=== PATIENT | male | born 1945 | race Caucasian/White ===

== ENCOUNTER 2019-09-23 21:03 | Inpatient (IN) | payer MEDICARE, MEDICAID, SELFPAY ==
--- NOTE | 2019-09-23 21:09 | DI.CT.S_ITS ---
PROCEDURE: CT HEAD/BRAIN WO CON INDICATIONS: found down, head laceration, obtunded TECHNIQUE: Noncontrast 4.5 mm thick angled axial sections acquired from the foramen magnum to the vertex, with coronal and sagittal reformats. For radiation dose reduction, the following was used: automated exposure control, adjustment of mA and/or kV according to patient size. COMPARISON: [facility], CT, CT HEAD WITHOUT CONTRAST, 07/30/2019, 18:47. FINDINGS: Image quality: Excellent. CSF spaces: Basal cisterns are patent. No extra-axial fluid collections. The ventricles are symmetric in size and shape. Brain: No intracranial bleeds or masses. 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 There is cerebral volume loss for age, with resultant ventricular and sulcal prominence. There are periventricular and deep white matter chronic small vessel ischemic changes. There is intracranial internal carotid artery atherosclerosis. Skull and face: Calvarium and visualized facial bones appear intact, without suspicious lesions. Sinuses: Visualized sinuses and mastoids are clear. IMPRESSION: No CT evidence of acute intracranial pathology. No acute skull fracture. No significant changes from previous study. Dictated by: Jamel Genao M.D. on 09/23/2019 at 21:45 Approved by: Jamel Genao M.D. on 09/23/2019 at 21:47
--- NOTE | 2019-09-23 21:09 | DI.CT.S_ITS ---
PROCEDURE: CT CERVICAL SPINE WO CON INDICATIONS: possible fall, trauma TECHNIQUE: Noncontrast 3 mm thick sections acquired from the skull base to the T4 level. Sagittal and coronal reformats were then constructed. For radiation dose reduction, the following was used: automated exposure control, adjustment of mA and/or kV according to patient size. COMPARISON: None. FINDINGS: Image quality: Excellent. Bones: No fractures or dislocations. Visualized superior ribs are intact. Decrease intervertebral disc space and degenerative endplate changes throughout cervical spine is seen. No significant central canal stenosis or neuroforaminal narrowing is noted. Soft tissues: Prevertebral soft tissues are normal in thickness. No paravertebral hematomas. No apical pneumothoraces. IMPRESSION: 1. No acute cervical spine fracture or dislocation. 2. Degenerative disc disease throughout cervical spine as above. Dictated by: Jamel Genao M.D. on 09/23/2019 at 21:47 Approved by: Jamel Genao M.D. on 09/23/2019 at 21:49
--- NOTE | 2019-09-23 21:09 | DI.CT.S_ITS ---
PROCEDURE: CT CHEST ABD PEL W CON INDICATIONS: possible trauma TECHNIQUE: After the administration of intravenous contrast, 5 mm thick sections acquired from the lung apices to the symphysis. 2.5 mm thick coronal and sagittal reformats were acquired. Additional 7 mm thick coronal maximum intensity projection (MIP) reformats acquired through the lungs. Optional 10-minute delayed imaging may be performed from the kidneys to the bladder. For radiation dose reduction, the following was used: automated exposure control, adjustment of mA and/or kV according to patient size. COMPARISON: None. FINDINGS: Image quality: Excellent. CHEST: Lungs: No pulmonary contusions or lacerations. Severe centrilobular emphysema is seen. Biapical scarring is noted. Dependent atelectasis and scarring in posterior aspect of bilateral lung baum are seen. No acute airspace opacities. No pneumothorax or hemothorax. Central and peripheral airways appear patent and normal in caliber. Mediastinum: No mediastinal hematomas. Heart size is normal. No pericardial effusion. Thoracic aorta and pulmonary arteries demonstrate normal size and enhancement. No mediastinal or hilar adenopathy by size criteria are. Small lymph nodes are seen scattered in mediastinum measures up to 6 mm in size. Esophagus is normal in caliber. No hiatal hernia. Chest wall: No rib fractures. No subcutaneous emphysema. No axillary or supraclavicular adenopathy. Thyroid gland is within normal limits. ABDOMEN: Solid organs: Liver is normal in size and enhancement, without lacerations. Small hypodensities are seen scattered in right hepatic lobe measures up to 5 mm in size and may represent hepatic cysts. Gallbladder is within normal limits. Biliary system is non-dilated. Pancreas enhances normally, without transection. Spleen is normal in size and enhancement, without lacerations. No adrenal hematomas. Nodular appearance of left adrenal gland is seen which may represent an adrenal adenoma. Both kidneys enhance normally, without hydronephrosis or lacerations. 2.8 x 3 cm cystic structure with calcified rim is noted in lateral cortex of the lower pole left kidney with a internal fluid levels which may represent chronic hemorrhagic cyst. Peritoneum and bowel: No free fluid or air. Unenhanced bowel loops demonstrate normal wall thickness and caliber. Sigmoid diverticulosis is seen, no CT evidence of acute diverticulitis. Mild fecal stasis in the colon is seen extending to the rectum. Nodes and vessels: No retroperitoneal or mesenteric adenopathy. Aorta and inferior vena cava are normal in size and enhancement. Miscellaneous: No ventral hernias. PELVIS: Genitourinary: Bladder wall thickness is normal. Miscellaneous: No inguinal hernias or adenopathy. Bones: There is an acute fracture involving proximal right femoral neck with anterior and superior migration of femoral shaft in relation to the femoral head. No other fracture or dislocation is seen. No vertebral compression fractures. IMPRESSION: 1. Acute displaced right femoral neck fracture as above. No other fracture or dislocation is seen. No compression fracture is noted in the thoracic or lumbar spine. 2. Advanced centrilobular emphysema with upper lobe predominance. No pleural effusion or pneumothorax. No gross pulmonary contusion or laceration. 3. No gross acute solid organ injury in abdomen and pelvis. 2.8 x 3 cm peripherally calcified cystic structure in lower pole left kidney with internal fluid level which could represent a chronic hemorrhagic cyst. Ultrasound of kidney can be done for further evaluation of this area. No hydronephrosis. 4. No abnormal bowel wall thickening. No free fluid of free air. Mild constipation. Dictated by: Jamel Genao M.D. on 09/23/2019 at 21:50 Approved by: Jamel Genao M.D. on 09/23/2019 at 22:01
[2019-09-23 21:14] VITALS: BP 187/104; PULSE 93; RESP 20; O2SAT 91; BMI 25.4
[2019-09-23 21:22] LABS: Add Manual Diff / Slide Review NO; Basophils Absolute Auto 100 /uL (0-100); Basophils Percent Auto 1.1 % (0-2); Eosinophils Absolute Auto 700 /uL (0-450); Eosinophils Percent Auto 9.3 % (2-4); Hematocrit 44.7 % (41-53); Lymphocytes Absolute Auto 1800 /uL (1100-4500); Lymphocytes Percent Auto 25.4 % (25-40); Mean Corpuscular HGB Conc 33.5 % (30-36); Mean Corpuscular Hemoglobin 31.1 PG (26-34); Mean Corpuscular Volume 92.6 fL (80-100); Monocytes Absolute Auto 700 /uL (0-900); Neutrophils Absolute Auto 3800 /uL (1500-7000); Neutrophils Percent Auto 54.2 % (50-75); Platelet Count 247 X10^3/uL (150-400); Red Blood Cell Count 4.83 X10^6/uL (4.5-5.9); Red Cell Distribution Width 14.9 % (11.6-14.8)
[2019-09-23 21:27] LABS: Prothrombin Time 11.3 SECONDS (10.1-12.7)
[2019-09-23 21:30] LABS: PTT Partial Thromboplastin Tim 30 SECONDS (26.4-36.2)
[2019-09-23 21:31] LABS: Lactate (Lactic Acid) 2.9 mmol/L (0.7-2.1)
--- NOTE | 2019-09-23 21:39 | ED.TRAUMA ---
HPI - Trauma General Chief Complaint: Trauma Stated Complaint: GLF Time Seen by Provider: 09/23/19 21:05 Source: patient, family and EMS Mode of arrival: EMS Limitations: altered mental status History of Present Illness HPI narrative: 74-year-old male daily smoker with out known medical history presents by EMS for evaluation of a fall with unknown down time. It is unclear how EMS was activated but patient was initially evaluated by and ALS unit who found patient, placed him in a C-collar, checked his blood sugar found to be low and treated him and then activated BLS for transfer. Patient is a poor historian and does not know how he ended up on the ground or how long he was there but apparently was found outside of his house. Patient's only complaint is of right shoulder and right hip pain. He denies any headache he denies loss of consciousness, any denies the use of alcohol or blood thinners, but as stated he is a very poor historian. Patient was activated as a modified trauma given his unclear etiology of confusion and suspected traumatic injury. Related Data Home Medications Medication Instructions Recorded Confirmed aspirin 81 mg PO DAILY 09/24/19 09/24/19 folic acid 1 mg PO DAILY 09/24/19 09/24/19 lamotrigine 150 mg PO BID 09/24/19 09/24/19 thiamine HCl (vitamin B1) 100 mg PO DAILY 09/24/19 09/24/19 Allergies Allergy/AdvReac Type Severity Reaction Status Date / Time No Known Drug Allergies Allergy Verified 09/24/19 00:19 Review of Systems Constitutional Constitutional: Denies chills, Denies fatigue, Denies fever(s), Reports frequent falls, Denies lethargy and Reports weakness Eyes Eyes: Denies change in vision, Denies eye discharge, Denies irritation and Denies loss of vision ENT Ears, Nose, Mouth, and Throat: Denies change in voice, Denies dizziness, Denies neck pain, Denies sore throat and Denies throat swelling Cardiovascular Cardiovascular: Denies chest pain, Denies irregular heart rhythm, Denies lightheadedness, Denies palpitations, Denies dyspnea, Denies dyspnea on exertion and Denies orthopnea Respiratory Respiratory: Denies cough, Denies dyspnea, Denies dyspnea on exertion and Denies wheezing Gastrointestinal Gastrointestinal: Denies abdominal pain, Denies change in bowel habits, Denies diarrhea, Denies nausea and Denies vomiting Genitourinary Genitourinary: Denies hematuria, Denies flank pain, Denies urinary incontinence and Denies urinary urgency Musculoskeletal Musculoskeletal: Denies back pain, Reports limited range of motion, Denies muscle weakness, Denies neck pain, Denies numbness and Denies tingling Integumentary/Breasts Skin/Breast: Denies pruritus, Denies erythema, Denies rash and Denies wounds Neurologic Neurologic: Denies behavioral changes, Denies confusion, Denies dizziness, Reports frequent falls, Denies loss of vision, Denies numbness, Denies tingling and Reports weakness Psychiatric Psychiatric: Denies anxiety, Denies behavioral changes, Denies confusion, Denies depression, Denies homicidal ideation and Denies suicidal ideation Endocrine Endocrine: Denies fatigue, Denies flushing and Denies palpitations Hematologic/Lymphatic Hematologic/Lymphatic: Denies easy bruising Allergic/Immunologic Allergic/Immunologic: Denies urticaria, Denies throat swelling and Denies wheezing Patient History Social History Smoking Status: Current every day smoker Exam Narrative Exam Narrative: GENERAL: [74] year old patient appears stated age. Thin, pleasantly confused, uncomfortable and pointing toward his hip. GCS of 14 (confused) HEAD: Atraumatic. Normocephalic. EYES: Pupils equal round and reactive. Extraocular motions intact. No scleral icterus. No injection or drainage. ENT: Nose without bleeding, purulent drainage. Throat without erythema, tonsillar hypertrophy or exudate. Airway patent. NECK: Trachea midline. Non tender CARDIOVASCULAR: Regular rate and rhythm without murmurs, gallops, or rubs. RESPIRATORY: Clear to auscultation. Breath sounds equal bilaterally. No wheezes, rales, or rhonchi. GASTROINTESTINAL: Abdomen soft, non-tender, nondistended. EXTREMITIES: Painful right shoulder, no tenting, closed and neurovascularly intact. Pain with palpation of right hip but no obvious deformity, shortening or rotation. Closed and neurovascularly intact. BACK: Nontender without deformity or crepitance. No flank tenderness. NEURO: AOx3. SKIN: No rash or erythema of visible areas Initial Vital Signs Initial Vital Signs: Vital Signs Pulse Rate 93 H 09/23/19 21:14 Respiratory Rate 09/23/19 21:14 Blood Pressure 187/104 H 09/23/19 21:14 Pulse Oximetry 91 09/23/19 21:14 Course Orders Ordered: ED Orders 09/23/19 21:09 CT cervical spine wo con Stat CT chest abd pel w con Stat CT head/brain wo con Stat EKG-12 Lead Stat 09/23/19 21:12 Complete Blood Count AUTO DIFF Stat Comprehensive Metabolic Panel Stat Ethanol (ETOH) Stat Lactate (Lactic Acid) Stat Magnesium Stat NT-proBNP (BNP-Adult 18+) Stat Partial Thromboplastin Time Stat Procalcitonin Stat Prothrombin Time INR Stat Troponin & CK Cardiac Panel Stat 09/23/19 22:21 Ictotest Urine Stat Urine Drug Screen, Rapid Stat Urine Microscopic Stat 09/23/19 22:27 XR hip w pel if done RT 2V Stat XR shoulder RT min 2V Stat 09/23/19 23:30 Blood Culture Stat Sodium Chloride (Normal Saline 0.9%) 1,000 mls @ 125 mls/hr IV CONT MARIA LUISA Last Admin: 09/23/19 21:45 Dose: 125 mls/hr Documented by: KRISTINA Discontinued Medications Diphtheria/Tetanus/Acell Pertussis (Adacel) 0.5 ml IM .ONCE ONE Stop: 09/23/19 21:09 Last Admin: 09/23/19 23:48 Dose: 0.5 ml Documented by: KRISTINA Hydromorphone HCl (Dilaudid) 0.5 mg IV NOW ONE Stop: 09/24/19 00:37 Last Admin: 09/24/19 00:39 Dose: 0.5 mg Documented by: KRISTINA Thiamine HCl (Vitamin B-1) 100 mg IV NOW ONE Stop: 09/23/19 23:48 Last Admin: 09/24/19 00:15 Dose: 100 mg Documented by: KRISTINA Consultations Consultation #1: call to ortho, happy to consult when appropriate call to hospitalist, happy to accept Vital Signs Vital signs: Vital Signs - 8 hr 09/23/19 21:14 09/23/19 21:49 09/23/19 22:00 Temperature 97.1 F L Pulse Rate 93 H 90 79 Respiratory Rate 20 24 24 Blood Pressure 187/104 H Blood Pressure [Left Arm] 169/86 H 169/92 H Pulse Oximetry 91 92 94 09/23/19 22:52 09/23/19 23:30 09/24/19 00:00 Temperature Pulse Rate 81 82 76 Respiratory Rate 22 20 20 Blood Pressure Blood Pressure [Left Arm] 171/91 H 170/81 H 169/84 H Pulse Oximetry 96 98 98 MDM - Trauma Lab Data Result diagrams: 09/23/19 21:12 09/23/19 21:12 Labs: Lab Results 09/23/19 09/23/19 09/23/19 Range/Units 21:12 21:12 21:12 WBC 7.0 (4.5-11.0) X10^3/uL RBC 4.83 (4.5-5.9) X10^6/uL Hgb 15.0 (13.5-17.5) g/dL Hct 44.7 (41-53) % MCV 92.6 (80-100) fL MCH 31.1 (26-34) PG MCHC 33.5 (30-36) % RDW 14.9 H (11.6-14.8) % Plt Count 247 (150-400) X10^3/uL Neut % (Auto) 54.2 (50-75) % Lymph % (Auto) 25.4 (25-40) % [place] % (Auto) 10.0 (3-14) % Eos % (Auto) 9.3 H (2-4) % Baso % (Auto) 1.1 (0-2) % Neut # (Auto) 3800 (1614-4742) /uL Lymph # (Auto) 1800 (4706-6749) /uL [place] # (Auto) 700 (0-900) /uL Eos # (Auto) 700 H (0-450) /uL Baso # (Auto) 100 (0-100) /uL PT 11.3 (10.1-12.7) SECONDS INR 1.0 (0.9-1.3) APTT 30 (26.4-36.2) SECONDS Sodium 142 (137-145) mmol/L Potassium 3.6 (3.4-5.1) mmol/L Chloride 105 (98-107) mmol/L Carbon Dioxide 25 (22-32) mmol/L BUN 22 H (9-20) mg/dL Creatinine 1.00 (0.66-1.25) mg/dL Estimated GFR > 60.0 (>60) mL/min BUN/Creatinine Ratio 22.0 (6-22) Glucose 108 (80-110) mg/dL Lactate (0.7-2.1) mmol/L Calcium 9.4 (8.4-10.2) mg/dL Magnesium 2.3 (1.6-2.3) mg/dL Total Bilirubin 0.4 (0.2-1.3) mg/dL AST 32 (17-59) IU/L ALT 13 (<50) IU/L Alkaline Phosphatase 72 (38-126) U/L Total Creatine Kinase 115 (55-170) U/L CK-MB (CK-2) 0.73 (<2.37) ng/mL CK-MB (CK-2) Rel Index 0.6 L (1.5-5.0) % Troponin I < 0.012 (0.01-0.034) ng/mL NT-Pro-B Natriuret Pep 245 H (<125) pg/mL Total Protein 8.5 H (6.3-8.2) g/dL Albumin 4.4 (3.5-5.0) g/dL Globulin 4.1 (1.7-4.1) g/dL Albumin/Globulin Ratio 1.1 (1.0-2.8) Procalcitonin (<0.5) ng/mL Ur Bilirubin Confirm (Negative) Urine RBC (0-5/HPF) Urine WBC (0-5/HPF) Urine Bacteria (None) Urine Mucus (Negative) Ur Culture Indicated? U Opiates 300ng/mL cut (Negative) Ur Oxycodone Screen (Negative) Urine Methadone Screen (Negative) Ur Barbiturates Screen (Negative) U Tricyclic Antidepress (Negative) Ur Phencyclidine Scrn (Negative) Ur Amphetamines Screen (Negative) U Methamphetamines Scrn (Negative) Ur MDMA Scrn (Ecstasy) (Negative) U Benzodiazepines Scrn (Negative) Urine Cocaine Screen (Negative) U Marijuana (THC) Screen (Negative) Ethyl Alcohol < 10 ( - 10) mg/dL 09/23/19 09/23/19 09/23/19 Range/Units 21:12 21:12 22:21 WBC (4.5-11.0) X10^3/uL RBC (4.5-5.9) X10^6/uL Hgb (13.5-17.5) g/dL Hct (41-53) % MCV (80-100) fL MCH (26-34) PG MCHC (30-36) % RDW (11.6-14.8) % Plt Count (150-400) X10^3/uL Neut % (Auto) (50-75) % Lymph % (Auto) (25-40) % [place] % (Auto) (3-14) % Eos % (Auto) (2-4) % Baso % (Auto) (0-2) % Neut # (Auto) (5662-1106) /uL Lymph # (Auto) (5915-8503) /uL Mellette # (Auto) (0-900) /uL Eos # (Auto) (0-450) /uL Baso # (Auto) (0-100) /uL PT (10.1-12.7) SECONDS INR (0.9-1.3) APTT (26.4-36.2) SECONDS Sodium (137-145) mmol/L Potassium (3.4-5.1) mmol/L Chloride (98-107) mmol/L Carbon Dioxide (22-32) mmol/L BUN (9-20) mg/dL Creatinine (0.66-1.25) mg/dL Estimated GFR (>60) mL/min BUN/Creatinine Ratio (6-22) Glucose (80-110) mg/dL Lactate 2.9 H (0.7-2.1) mmol/L Calcium (8.4-10.2) mg/dL Magnesium (1.6-2.3) mg/dL Total Bilirubin (0.2-1.3) mg/dL AST (17-59) IU/L ALT (<50) IU/L Alkaline Phosphatase (38-126) U/L Total Creatine Kinase (55-170) U/L CK-MB (CK-2) (<2.37) ng/mL CK-MB (CK-2) Rel Index (1.5-5.0) % Troponin I (0.01-0.034) ng/mL NT-Pro-B Natriuret Pep (<125) pg/mL Total Protein (6.3-8.2) g/dL Albumin (3.5-5.0) g/dL Globulin (1.7-4.1) g/dL Albumin/Globulin Ratio (1.0-2.8) Procalcitonin < 0.05 (<0.5) ng/mL Ur Bilirubin Confirm Negative (Negative) Urine RBC 1-5/hpf (0-5/HPF) Urine WBC None seen (0-5/HPF) Urine Bacteria None seen (None) Urine Mucus 2+ H (Negative) Ur Culture Indicated? Cult not indicated U Opiates 300ng/mL cut (Negative) Ur Oxycodone Screen (Negative) Urine Methadone Screen (Negative) Ur Barbiturates Screen (Negative) U Tricyclic Antidepress (Negative) Ur Phencyclidine Scrn (Negative) Ur Amphetamines Screen (Negative) U Methamphetamines Scrn (Negative) Ur MDMA Scrn (Ecstasy) (Negative) U Benzodiazepines Scrn (Negative) Urine Cocaine Screen (Negative) U Marijuana (THC) Screen (Negative) Ethyl Alcohol ( - 10) mg/dL 09/23/19 09/23/19 Range/Units 22:21 23:30 WBC (4.5-11.0) X10^3/uL RBC (4.5-5.9) X10^6/uL Hgb (13.5-17.5) g/dL Hct (41-53) % MCV (80-100) fL MCH (26-34) PG MCHC (30-36) % RDW (11.6-14.8) % Plt Count (150-400) X10^3/uL Neut % (Auto) (50-75) % Lymph % (Auto) (25-40) % Mellette % (Auto) (3-14) % Eos % (Auto) (2-4) % Baso % (Auto) (0-2) % Neut # (Auto) (9555-6329) /uL Lymph # (Auto) (3733-6051) /uL Mellette # (Auto) (0-900) /uL Eos # (Auto) (0-450) /uL Baso # (Auto) (0-100) /uL PT (10.1-12.7) SECONDS INR (0.9-1.3) APTT (26.4-36.2) SECONDS Sodium (137-145) mmol/L Potassium (3.4-5.1) mmol/L Chloride (98-107) mmol/L Carbon Dioxide (22-32) mmol/L BUN (9-20) mg/dL Creatinine (0.66-1.25) mg/dL Estimated GFR (>60) mL/min BUN/Creatinine Ratio (6-22) Glucose (80-110) mg/dL Lactate 1.3 (0.7-2.1) mmol/L Calcium (8.4-10.2) mg/dL Magnesium (1.6-2.3) mg/dL Total Bilirubin (0.2-1.3) mg/dL AST (17-59) IU/L ALT (<50) IU/L Alkaline Phosphatase (38-126) U/L Total Creatine Kinase (55-170) U/L CK-MB (CK-2) (<2.37) ng/mL CK-MB (CK-2) Rel Index (1.5-5.0) % Troponin I (0.01-0.034) ng/mL NT-Pro-B Natriuret Pep (<125) pg/mL Total Protein (6.3-8.2) g/dL Albumin (3.5-5.0) g/dL Globulin (1.7-4.1) g/dL Albumin/Globulin Ratio (1.0-2.8) Procalcitonin (<0.5) ng/mL Ur Bilirubin Confirm (Negative) Urine RBC (0-5/HPF) Urine WBC (0-5/HPF) Urine Bacteria (None) Urine Mucus (Negative) Ur Culture Indicated? U Opiates 300ng/mL cut Negative (Negative) Ur Oxycodone Screen Negative (Negative) Urine Methadone Screen Negative (Negative) Ur Barbiturates Screen Negative (Negative) U Tricyclic Antidepress Negative (Negative) Ur Phencyclidine Scrn Negative (Negative) Ur Amphetamines Screen Negative (Negative) U Methamphetamines Scrn Negative (Negative) Ur MDMA Scrn (Ecstasy) Negative (Negative) U Benzodiazepines Scrn Negative (Negative) Urine Cocaine Screen Negative (Negative) U Marijuana (THC) Screen Negative (Negative) Ethyl Alcohol ( - 10) mg/dL Point of Care Testing Glucose POC 112 Urine Dip Bedside Urine Glucose Negative Bedside Urine Bilirubin + 1 Bedside Urine Ketone +/- 5 Urine Specific [place] 1.020 Bedside Urine Occult Blood +/- Bedside Urine pH 5.5 Bedside Urine Protein +/- 15 Bedside Urine Urobilinogen +/- 1mg Bedside Urine Nitrite - Negative Bedside Urine Leukocytes - Negative Esterase Imaging Data CT scan - head: Radiologist's Impression: Jensen Neito 74 M [address] [address] [address] Scan Report Signed Patient: Jensen NietoMR#: [id number] : 8Acct:[id number] Age/Sex: 74 / MDate of Service: 09/23/19 Loc: ED Accession Number: [id number] Procedure: CT head/brain wo con Ordering Provider: Irwin Pantoja D.O. PROCEDURE: CT HEAD/BRAIN WO CON INDICATIONS: found down, head laceration, obtunded TECHNIQUE: Noncontrast 4.5 mm thick angled axial sections acquired from the foramen magnum to the vertex, with coronal and sagittal reformats. For radiation dose reduction, the following was used: automated exposure control, adjustment of mA and/or kV according to patient size. COMPARISON: [facility], CT, CT HEAD WITHOUT CONTRAST, 07/30/2019, 18:47. FINDINGS: Image quality: Excellent. CSF spaces: Basal cisterns are patent. No extra-axial fluid collections. The ventricles are symmetric in size and shape. Brain: No intracranial bleeds or masses. 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 There is cerebral volume loss for age, with resultant ventricular and sulcal prominence. There are periventricular and deep white matter chronic small vessel ischemic changes. There is intracranial internal carotid artery atherosclerosis. Skull and face: Calvarium and visualized facial bones appear intact, without suspicious lesions. Sinuses: Visualized sinuses and mastoids are clear. IMPRESSION: No CT evidence of acute intracranial pathology. No acute skull fracture. No significant changes from previous study. Dictated by: Jamel Genao M.D. on 09/23/2019 at 21:45 Approved by: Jamel Genao M.D. on 09/23/2019 at 21:47 CT scan - chest: Radiologist's Impression: Jensen Nieto 74 M [address] [address] [address] Scan Report Signed Patient: Jensen NietoMR#: [id number] : 8Acct:[id number] Age/Sex: 74 / MDate of Service: 09/23/19 Loc: ED Accession Number: [id number] Procedure: CT head/brain wo con Ordering Provider: Irwin Pantoja D.O. PROCEDURE: CT HEAD/BRAIN WO CON INDICATIONS: found down, head laceration, obtunded TECHNIQUE: Noncontrast 4.5 mm thick angled axial sections acquired from the foramen magnum to the vertex, with coronal and sagittal reformats. For radiation dose reduction, the following was used: automated exposure control, adjustment of mA and/or kV according to patient size. COMPARISON: [facility], CT, CT HEAD WITHOUT CONTRAST, 07/30/2019, 18:47. FINDINGS: Image quality: Excellent. CSF spaces: Basal cisterns are patent. No extra-axial fluid collections. The ventricles are symmetric in size and shape. Brain: No intracranial bleeds or masses. 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 There is cerebral volume loss for age, with resultant ventricular and sulcal prominence. There are periventricular and deep white matter chronic small vessel ischemic changes. There is intracranial internal carotid artery atherosclerosis. Skull and face: Calvarium and visualized facial bones appear intact, without suspicious lesions. Sinuses: Visualized sinuses and mastoids are clear. IMPRESSION: No CT evidence of acute intracranial pathology. No acute skull fracture. No significant changes from previous study. Dictated by: Jamel Genao M.D. on 09/23/2019 at 21:45 Approved by: Jamel Genao M.D. on 09/23/2019 at 21:47 IshaanjenniJensen 74 1945 [place] [address] CT Scan Report Signed Patient: Jensen Nieto#: [id number] : 8Acct:[id number] Age/Sex: 74 / MDate of Service: 09/23/19 Loc: ED Accession Number: [id number] Procedure: CT chest abd pel w con Ordering Provider: Irwin Pantoja D.O. PROCEDURE: CT CHEST ABD PEL W CON INDICATIONS: possible trauma TECHNIQUE: After the administration of intravenous contrast, 5 mm thick sections acquired from the lung apices to the symphysis. 2.5 mm thick coronal and sagittal reformats were acquired. Additional 7 mm thick coronal maximum intensity projection (MIP) reformats acquired through the lungs. Optional 10-minute delayed imaging may be performed from the kidneys to the bladder. For radiation dose reduction, the following was used: automated exposure control, adjustment of mA and/or kV according to patient size. COMPARISON: None. FINDINGS: Image quality: Excellent. CHEST: Lungs: No pulmonary contusions or lacerations. Severe centrilobular emphysema is seen. Biapical scarring is noted. Dependent atelectasis and scarring in posterior aspect of bilateral lung baum are seen. No acute airspace opacities. No pneumothorax or hemothorax. Central and peripheral airways appear patent and normal in caliber. Mediastinum: No mediastinal hematomas. Heart size is normal. No pericardial effusion. Thoracic aorta and pulmonary arteries demonstrate normal size and enhancement. No mediastinal or hilar adenopathy by size criteria are. Small lymph nodes are seen scattered in mediastinum measures up to 6 mm in size. Esophagus is normal in caliber. No hiatal hernia. Chest wall: No rib fractures. No subcutaneous emphysema. No axillary or supraclavicular adenopathy. Thyroid gland is within normal limits. ABDOMEN: Solid organs: Liver is normal in size and enhancement, without lacerations. Small hypodensities are seen scattered in right hepatic lobe measures up to 5 mm in size and may represent hepatic cysts. Gallbladder is within normal limits. Biliary system is non-dilated. Pancreas enhances normally, without transection. Spleen is normal in size and enhancement, without lacerations. No adrenal hematomas. Nodular appearance of left adrenal gland is seen which may represent an adrenal adenoma. Both kidneys enhance normally, without hydronephrosis or lacerations. 2.8 x 3 cm cystic structure with calcified rim is noted in lateral cortex of the lower pole left kidney with a internal fluid levels which may represent chronic hemorrhagic cyst. Peritoneum and bowel: No free fluid or air. Unenhanced bowel loops demonstrate normal wall thickness and caliber. Sigmoid diverticulosis is seen, no CT evidence of acute diverticulitis. Mild fecal stasis in the colon is seen extending to the rectum. Nodes and vessels: No retroperitoneal or mesenteric adenopathy. Aorta and inferior vena cava are normal in size and enhancement. Miscellaneous: No ventral hernias. PELVIS: Genitourinary: Bladder wall thickness is normal. Miscellaneous: No inguinal hernias or adenopathy. Bones: There is an acute fracture involving proximal right femoral neck with anterior and superior migration of femoral shaft in relation to the femoral head. No other fracture or dislocation is seen. No vertebral compression fractures. IMPRESSION: 1. Acute displaced right femoral neck fracture as above. No other fracture or dislocation is seen. No compression fracture is noted in the thoracic or lumbar spine. 2. Advanced centrilobular emphysema with upper lobe predominance. No pleural effusion or pneumothorax. No gross pulmonary contusion or laceration. 3. No gross acute solid organ injury in abdomen and pelvis. 2.8 x 3 cm peripherally calcified cystic structure in lower pole left kidney with internal fluid level which could represent a chronic hemorrhagic cyst. Ultrasound of kidney can be done for further evaluation of this area. No hydronephrosis. 4. No abnormal bowel wall thickening. No free fluid of free air. Mild constipation. Dictated by: Jamel Genao M.D. on 09/23/2019 at 21:50 Approved by: Jamel Genao M.D. on 09/23/2019 at 22:01 Discharge Plan Departure Patient Disposition: Admitted As Inpatient Clinical Impression: Closed fracture of right hip Prescriptions: No Action lamotrigine 150 mg Tablet 150 mg PO BID RF: 0 thiamine HCl (vitamin B1) 100 mg Tablet 100 mg PO DAILY RF: 0 aspirin 81 mg Tablet,Delayed Release (Dr/Ec) 81 mg PO DAILY RF: 0 folic acid 1 mg Tablet 1 mg PO DAILY RF: 0
[2019-09-23 21:41] LABS: Alanine Aminotransferase 13 IU/L (<50); Albumin 4.4 g/dL (3.5-5.0); Albumin Globulin Ratio 1.1 (1.0-2.8); Alkaline Phosphatase 72 U/L (38-126); Aspartate Aminotransferase 32 IU/L (17-59); Bilirubin Total 0.4 mg/dL (0.2-1.3); Blood Urea Nitrogen 22 mg/dL (9-20); Calcium 9.4 mg/dL (8.4-10.2); Carbon Dioxide 25 mmol/L (22-32); Chloride 105 mmol/L (98-107); Creatine Kinase 115 U/L (55-170); Estimated Glomerular Filt Rate > 60.0 mL/min (>60); Ethanol (ETOH) < 10 mg/dL; Globulin 4.1 g/dL (1.7-4.1); Glucose 108 mg/dL (80-110); HEMOLYSIS 24 (0-50); Magnesium 2.3 mg/dL (1.6-2.3); Potassium 3.6 mmol/L (3.4-5.1); Sodium 142 mmol/L (137-145); Total Protein 8.5 g/dL (6.3-8.2)
[2019-09-23] MEDS: SODIUM CHLORIDE 0.9% 1,000 ML 125 ML IV (21:45)
[2019-09-23 21:49] VITALS: BP 169/86; PULSE 90; RESP 24; TEMP 36.2; O2SAT 92
[2019-09-23 21:52] LABS: Troponin I < 0.012 ng/mL (0.01-0.034)
[2019-09-23 21:56] LABS: CKMB % Relative Index 0.6 % (1.5-5.0); Creatine Kinase MB 0.73 ng/mL (<2.37)
[2019-09-23 21:57] LABS: Procalcitonin < 0.05 ng/mL (<0.5)
[2019-09-23 22:00] VITALS: BP 169/92; PULSE 79; RESP 24; O2SAT 94
[2019-09-23 22:02] LABS: NT-proBNP (BNP-Adult 18+) 245 pg/mL (<125)
--- NOTE | 2019-09-23 22:27 | DI.RAD.S_ITS ---
PROCEDURE: XR HIP W PEL IF DONE RT 2V INDICATIONS: fx noted on CT right hip TECHNIQUE: AP pelvis with lateral view(s) of the right hip(s). COMPARISON: None. FINDINGS: Bones: Basicervical fracture of the proximal right femur is noted which is in varus angulation. Soft tissues: The visualized bowel gas pattern is normal. No suspicious soft tissue calcifications. Kaur catheter and contrast material noted in the urinary bladder. IMPRESSION: Proximal right femur fracture. Dictated by: Yanci Falcon MD, PhD on 09/24/2019 at 9:58 Approved by: Yanci Falcon MD, PhD on 09/24/2019 at 9:58
--- NOTE | 2019-09-23 22:27 | DI.RAD.S_ITS ---
PROCEDURE: XR SHOULDER RT MIN 2V INDICATIONS: pain, possible trauma right shoulder TECHNIQUE: 2 views of the shoulder were acquired. COMPARISON: [facility], CT, CT CHEST ABD PEL W CON, 09/23/2019, 21:18. FINDINGS: Bones: Acute superimposed on chronic right clavicle fracture. Chronic fracture involves the mid clavicle and is healed and deformity. The acute fracture involve the distal clavicle and is nondisplaced. Visualized ribs appear intact. Soft tissues: No suspicious soft tissue calcifications. IMPRESSION: Acute superimposed upon chronic right clavicle fractures. Dictated by: Yanci Falcon MD, PhD on 09/24/2019 at 9:58 Approved by: Yanci Falcon MD, PhD on 09/24/2019 at 10:00
[2019-09-23 22:32] LABS: Bacteria Urine None Seen; WBC Urine None Seen (0-5/HPF)
[2019-09-23 22:43] LABS: UR Morphine/Opiate cutoff 300 Negative (Negative); Ur Creatinine 50 (Normal); Ur Specific Gravity 1.025 (Normal); Urine Amphetamines Negative (Negative); Urine Barbiturates Negative (Negative); Urine Benzodiazepines Negative (Negative); Urine Cocaine Negative (Negative); Urine MDMA Negative (Negative); Urine Methadone Negative (Negative); Urine Methamphetamines Negative (Negative); Urine Oxycodone Negative (Negative); Urine Phencyclidine Negative (Negative); Urine Tetrahydrocannabinol Negative (Negative); Urine Tricyclic Antidepressant Negative (Negative); Urine pH 5 (Normal)
[2019-09-23 22:46] LABS: Culture Indicated Urine Cult Not Indicated; Mucus Urine 2+ (Negative); RBC Urine 1-5/HPF (0-5/HPF)
[2019-09-23 22:52] VITALS: BP 171/91; PULSE 81; PULSE 86; RESP 22; RESP 30; O2SAT 95; O2SAT 96
[2019-09-23 22:52] LABS: Ictotest Urine Negative (Negative)
[2019-09-23 23:18] LABS: Reflexed Lactate in 2 Hours Y
[2019-09-23 23:30] VITALS: BP 170/81; PULSE 82; RESP 20; O2SAT 98
[2019-09-23] MEDS: TET,DIPH,PERTUSS(ACELL),VAC/PF 0.5 ML SYRINGE IM (23:48)
[2019-09-24] VITALS (18 sets, daily range): BP systolic 96–169; BP diastolic 59–103; PULSE 76–136; RESP 10–24; TEMP 36.5–37.3; O2SAT 91–98; BMI 25.4
--- NOTE | 2019-09-24 | DI.RAD.S_ITS ---
PROCEDURE: XR PELVIS 1-2V INDICATIONS: INTRA OPERATIVE HIP TECHNIQUE: Intra-operative view of the pelvis and hip acquired. COMPARISON: [facility], CT, CT CHEST ABD PEL W CON, 09/23/2019, 21:18. [facility], CR, XR HIP W PEL IF DONE RT 2V, 09/23/2019, 22:24. FINDINGS: Bones: Intraoperative devices prior to placement of arthroplasty prostheses are in expected positions. No fractures or suspicious bony lesions. Soft tissues: Overlying surgical retractors are present, along with other intraoperative changes. IMPRESSION: Intraoperative image of pelvis shows right hip arthroplasty in progress with anatomic alignment. Dictated by: Jamel Genao M.D. on 09/24/2019 at 17:58 Approved by: Jamel Genao M.D. on 09/24/2019 at 17:59
--- NOTE | 2019-09-24 | DI.RAD.S_ITS ---
PROCEDURE: XR PELVIS 1-2V INDICATIONS: INTRA OPERATIVE TOTAL RIGHT HIP *READJUSTED* TECHNIQUE: Intra-operative view of the pelvis and hip acquired. COMPARISON: [facility], CR, XR PELVIS 1-2V, 09/24/2019, 16:42. FINDINGS: Bones: Intraoperative devices prior to placement of arthroplasty prostheses are in expected positions. No fractures or suspicious bony lesions. Soft tissues: Overlying surgical retractors are present, along with other intraoperative changes. IMPRESSION: Intraoperative image of pelvis for right hip arthroplasty. Dictated by: Jamel Genao M.D. on 09/24/2019 at 18:24 Approved by: Jamel Genao M.D. on 09/24/2019 at 18:24
[2019-09-24 00:04] LABS: Lactate 2HR (Lactic Acid Rflx) 1.3 mmol/L (0.7-2.1)
[2019-09-24] MEDS: THIAMINE 200 MG/2 ML VIAL 100 MG IV (00:15)
[2019-09-24] MEDS: HYDROMORPHONE 0.5 MG INJ IV (00:39)
--- NOTE | 2019-09-24 01:36 | PM.HP.1 ---
History of Present Illness History of Present Illness Date Patient Seen: 09/24/19 Time Patient Seen: 01:06 Chief complaint: GLF Narrative: HPI is obtained the interview of patient's daughter and the patient. Patient himself is a poor and unreliable historian. 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 09/23/2019 patient was found down on the [place] by [place]standers [place] who activated EMS. It is not clear how long patient has been down. It is not clear if he has suffered an injury to the head or had loss of consciousness. ED record notes patient to have low blood sugar on initial EMS contact, which was treated accordingly. Patient himself has underlying dementia and has no recollection of the events. He is on ASA 81 mg daily. Patient is known to have underlying history of seizures. According to patient's daughter he has had seizures most of his life. His last seizure is said to have taken place in May of 2019 (reported by daughter). Patient is on lamotrigine 150 mg BID. Despite underlying dementia patient does live by himself. His daughter communicated that she is in the process of obtaining home health for the patient as he has declined in his ability to care for self and perform ADLs. According to the daughter, patient lacks awareness of his surroundings. He is noted to orient himself by using a newspaper. Patient denies headache, change in vision, chest pain, palpitations, dizziness,, lightheadedness, abdominal pain, and GI distress. Patient is not known to have suffered a recent illness or hospitalization. In the ED he was found to have right femoral neck fracture. There have not been any overt electrolyte abnormalities. Renal function is stable. Lactate mildly elevated at 2.3 (resolved with hydration). Alcohol level and urine drug screen was negative. No acute signs of infection. Patient is complaining of right shoulder pain w/new decreased range of motion. XR of right shoulder is pending. ED Presentation & Work-Up VS, 09/23/192113. BP 187/104 HR 93 RR 20 SpO2 91% RA Labs 09/23/192111 WBC 7.0 Lactate 2.3 PCT < 0.05 Hgb 15, Plt 247 PT 11.3, INR 1.0, aPTT 30 Na 142 K 3.6 Mg 2.3 Cl 105 Ca 9.4 Alb 4.4 Glu 108 CO2 25 BUN 22 Cr 1.0 TBili 0.4 AST 32 ALT 13 ALP 72 CK 115 Trop < 0.012 NT-proBNP 245 EtOH < 10 UDS negative Blood Cx pending Urine Dip... 2+ mucus, otherwise negative for WBC and bacteria CT HEAD. No acute intracranial pathology. No intracranial bleeds or masses. No acute skull fracture. 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 There is cerebral volume loss for age, with resultant ventricular and sulcal prominence. There are periventricular and deep white matter chronic small vessel ischemic changes. There is intracranial internal carotid artery atherosclerosis. Calvarium and visualized facial bones appear intact, without suspicious lesions. CT CERVICAL SPINE. No acute cervical spine fracture or dislocation. Visualized superior ribs are intact. Decrease intervertebral disc space and degenerative endplate changes throughout cervical spine is seen. No significant central canal stenosis or neuroforaminal narrowing is noted. CT A/P Acute displaced right femoral neck fracture as above. No other fracture or dislocation is seen. No compression fracture is noted in the thoracic or lumbar spine. Advanced centrilobular emphysema with upper lobe predominance. No pleural effusion or pneumothorax. No gross pulmonary contusion or laceration. No gross acute solid organ injury in abdomen and pelvis. 2.8 x 3 cm peripherally calcified cystic structure in lower pole left kidney with internal fluid level which could represent a chronic hemorrhagic cyst. Ultrasound of kidney can be done for further evaluation of this area. No hydronephrosis. No abnormal bowel wall thickening. No free fluid of free air. Mild constipation. XR HIP... final read pending XR SHOULDER... 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 Smoking Status 60 PYH of tobacco dependence, current 1PPD smoker alcohol intake frequency 0-2 drinks per day Substance Use Type No known current or prior use. Meds Home Medications and Allergies Home Medications Medication Instructions Recorded Confirmed Type aspirin 81 mg PO DAILY 09/24/19 09/24/19 History folic acid 1 mg PO DAILY 09/24/19 09/24/19 History lamotrigine 150 mg PO BID 09/24/19 09/24/19 History thiamine HCl (vitamin B1) 100 mg PO DAILY 09/24/19 09/24/19 History Allergies Allergy/AdvReac Type Severity Reaction Status Date / Time No Known Drug Allergies Allergy Verified 09/24/19 00:19 Review of Systems Review of Systems Narrative: Unobtainable due to dementia. Limited account provided by daughter. Exam Vital Signs (past 8 hours): - 09/23/19 21:14 09/23/19 21:49 09/23/19 22:00 Temperature 97.1 F L Pulse Rate 93 H 90 79 Respiratory Rate 20 24 24 Blood Pressure 187/104 H Blood Pressure [Left Arm] 169/86 H 169/92 H Pulse Oximetry 91 92 94 09/23/19 22:52 09/23/19 23:30 09/24/19 00:00 Temperature Pulse Rate 81 82 76 Respiratory Rate 22 20 20 Blood Pressure Blood Pressure [Left Arm] 171/91 H 170/81 H 169/84 H Pulse Oximetry 96 98 98 09/24/19 01:10 Temperature 97.7 F Pulse Rate 82 Respiratory Rate 20 Blood Pressure 164/103 H Blood Pressure [Left Arm] Pulse Oximetry 93 Oxygen Delivery Method Room Air Oxygen Flow Rate 0 Narrative Exam Narrative: Constitutional: Mild discomfort, malnourished in appearance Neurologic: Awake. Oriented to self only. Notes year is 2001. Does not known where he is at. Able to follow simple commands. Head NC, AT Eyes PERRL, EOMI, no scleral icterus Ears External ears normal, no otorrhea Nose External nose normal, no rhinorrhea or epistaxis Throat Dry MM, edentulous Neck No JVD Chest / Respiratory: Equal chest rise, unlabored respiratory effort No dypnea or tachypnea at rest Cough, productive is present Upper airway congestion Heart / CV S1S2, no murmur Abdomen / GI Soft, NT, ND, + BS, no organomegaly no suprapubic tenderness, Kaur catheter present Peripheral / Vascular RLE externally rotated Bi-pedal pulses palpable, 2+; No edema Extremities somewhat cool to touch, patient is aware of being touched No evidence of cyanosis bilaterally Musculoskeletal Diminished ROM at sholder of RUE ROM intact LUE Diminished ROM at hip of RLE ROM intact LLE Skin Peripheral vascular changes noted Scaling present Patient arrived with bilateral foot wraps, these were taken down Photographs of lower extremities have been taken and should be scanned to chart Objective Labs Result Diagrams: 09/23/19 21:12 09/23/19 21:12 Labs: Laboratory Results - last 24 hr 09/23/19 09/23/19 09/23/19 21:12 21:12 21:12 WBC 7.0 RBC 4.83 Hgb 15.0 Hct 44.7 MCV 92.6 MCH 31.1 MCHC 33.5 RDW 14.9 H Plt Count 247 Neut % (Auto) 54.2 Lymph % (Auto) 25.4 [place] % (Auto) 10.0 Eos % (Auto) 9.3 H Baso % (Auto) 1.1 Neut # (Auto) 3800 Lymph # (Auto) 1800 [place] # (Auto) 700 Eos # (Auto) 700 H Baso # (Auto) 100 PT 11.3 INR 1.0 APTT 30 Sodium 142 Potassium 3.6 Chloride 105 Carbon Dioxide 25 BUN 22 H Creatinine 1.00 Estimated GFR > 60.0 BUN/Creatinine Ratio 22.0 Glucose 108 Lactate Calcium 9.4 Magnesium 2.3 Total Bilirubin 0.4 AST 32 ALT 13 Alkaline Phosphatase 72 Total Creatine Kinase 115 CK-MB (CK-2) 0.73 CK-MB (CK-2) Rel Index 0.6 L Troponin I < 0.012 NT-Pro-B Natriuret Pep 245 H Total Protein 8.5 H Albumin 4.4 Globulin 4.1 Albumin/Globulin Ratio 1.1 Procalcitonin Ur Bilirubin Confirm Urine RBC Urine WBC Urine Bacteria Urine Mucus Ur Culture Indicated? U Opiates 300ng/mL cut Ur Oxycodone Screen Urine Methadone Screen Ur Barbiturates Screen U Tricyclic Antidepress Ur Phencyclidine Scrn Ur Amphetamines Screen U Methamphetamines Scrn Ur MDMA Scrn (Ecstasy) U Benzodiazepines Scrn Urine Cocaine Screen U Marijuana (THC) Screen Ethyl Alcohol < 10 09/23/19 09/23/19 09/23/19 21:12 21:12 22:21 WBC RBC Hgb Hct MCV MCH MCHC RDW Plt Count Neut % (Auto) Lymph % (Auto) [place] % (Auto) Eos % (Auto) Baso % (Auto) Neut # (Auto) Lymph # (Auto) [place] # (Auto) Eos # (Auto) Baso # (Auto) PT INR APTT Sodium Potassium Chloride Carbon Dioxide BUN Creatinine Estimated GFR BUN/Creatinine Ratio Glucose Lactate 2.9 H Calcium Magnesium Total Bilirubin AST ALT Alkaline Phosphatase Total Creatine Kinase CK-MB (CK-2) CK-MB (CK-2) Rel Index Troponin I NT-Pro-B Natriuret Pep Total Protein Albumin Globulin Albumin/Globulin Ratio Procalcitonin < 0.05 Ur Bilirubin Confirm Negative Urine RBC 1-5/hpf Urine WBC None seen Urine Bacteria None seen Urine Mucus 2+ H Ur Culture Indicated? Cult not indicated U Opiates 300ng/mL cut Ur Oxycodone Screen Urine Methadone Screen Ur Barbiturates Screen U Tricyclic Antidepress Ur Phencyclidine Scrn Ur Amphetamines Screen U Methamphetamines Scrn Ur MDMA Scrn (Ecstasy) U Benzodiazepines Scrn Urine Cocaine Screen U Marijuana (THC) Screen Ethyl Alcohol 09/23/19 09/23/19 22:21 23:30 WBC RBC Hgb Hct MCV MCH MCHC RDW Plt Count Neut % (Auto) Lymph % (Auto) [place] % (Auto) Eos % (Auto) Baso % (Auto) Neut # (Auto) Lymph # (Auto) [place] # (Auto) Eos # (Auto) Baso # (Auto) PT INR APTT Sodium Potassium Chloride Carbon Dioxide BUN Creatinine Estimated GFR BUN/Creatinine Ratio Glucose Lactate 1.3 Calcium Magnesium Total Bilirubin AST ALT Alkaline Phosphatase Total Creatine Kinase CK-MB (CK-2) CK-MB (CK-2) Rel Index Troponin I NT-Pro-B Natriuret Pep Total Protein Albumin Globulin Albumin/Globulin Ratio Procalcitonin Ur Bilirubin Confirm Urine RBC Urine WBC Urine Bacteria Urine Mucus Ur Culture Indicated? U Opiates 300ng/mL cut Negative Ur Oxycodone Screen Negative Urine Methadone Screen Negative Ur Barbiturates Screen Negative U Tricyclic Antidepress Negative Ur Phencyclidine Scrn Negative Ur Amphetamines Screen Negative U Methamphetamines Scrn Negative Ur MDMA Scrn (Ecstasy) Negative U Benzodiazepines Scrn Negative Urine Cocaine Screen Negative U Marijuana (THC) Screen Negative Ethyl Alcohol Assessment & Plan Assessment & Plan narrative: Patient is being admitted under observation status for right femoral neck fracture. Right femoral neck fracture (displaced), acute, present on admission, active - Consult orthopedic surgery (will need to be notified in am) - Keep NPO - Neurovascular checks Q4H - Supportive care: pain control - PT eval & treat - Check BG Q6H while NPO - Holding [employer] ASA 81 mg, plan to resume after surgery Right shoulder pain, acute vs acute on chronic, present on admission, active - XR of right shoulder is pending, potentially a clavicular fracture... final imaging to be followed - Supportive care / pain control - Consider arm sling for stabilization Acute pain secondary to an injury, present on admission, active - tylenol 975 Q8H prn - ibuprofen 600 mg - oxy IR 5 mg Q6H prn - morphine 4 mg Q4H prn breakthrough pain - lidocaine patch x2 (may have one to hip and one to right shoulder) daily prn - narcan for opiod reversal - bowel regimen w/ scheduled colace / senna BID (hold if having diarrhea) Dehydration, acute, present on admission, active - IVF Elevated Lactate, acute, present on admission, resolved - Received IVF in ED - Repeat lactate 1.3 (previously 2.3) Ground level fall, acute, present on admission, active - fall precautions - PT consulted Seizures, chronic condition, present on admission, stable - seizure precautions - last seizure 05/2019 (reported by family) - continue [employer] regimen of lamotrigine Tobacco dependence, chronic condition, present on admission, active - current 1 ppd smoker, nicotine patch Centrilobular emphysema, chronic condition, present on admission, stable - no active pulmonary decompensation, will continue to monitor closely Alcoholic dementia, chronic condition, present on admission, active - no signs of behavioral disturbance at this time - implement non-pharmacologic measures re-orient frequently avoid environmental triggers anticipate needs consistent bowel regimen avoid day-time naps, minimize sleep disturbances - will consider pharmacological treatment if non-pharmacologic measures are not sufficient and patient's behavior poses a safety concern to self and/or caregiver H/O alcohol abuse, present on admission, stable - resume PT regimen of folic acid and thiamine Code status discussed with daughter. According to the daughter patient wishes to be full code. He does not have a formal health directive. Daughter Sarina Acosta is the surrogate decision maker. Home medications reviewed and reconciled accordingly VTE prophylaxis w/ SCDs, will need SC heparin or lovenox post-op
[2019-09-24] MEDS: MORPHINE 4 MG/ML INJ IV ×2 (02:18→12:05)
[2019-09-24] MEDS: LIDOCAINE PATCH 1 EACH ADH..PATCH 2 EACH TOP (02:19)
--- NOTE | 2019-09-24 03:49 | PC.NURSE ---
Pt admitted to unit as confused, oriented to self. Pts daughter stating at baseline he has dementia. Complaints of severe Pain in right shoulder and right leg/hip. Relieved with Morphine. 2 Lidocaine patches applied. Pt reluctant to turn in bed at all or move; skin assessment done to best of ability with situation of pt right now. Skin to buttocks is intact with another dry skin patch. 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 Pictures taken; legs are mostly just very dry with rough dry patches and minor openings. Legs were scrubbed with chlorhexadine, cleansed in NS, xeroform applied to dry somewhat minimal opened areas, wrapped in kerlix and edward bandages. Kaur draining clear, yellow, urine NS@75mL/hr
--- NOTE | 2019-09-24 09:31 | PT-IP ANOTE ---
Received PT orders and reviewed chart. Pt has displaced right femoral neck fracture. Ortho consult has been ordered. No activity orders in place. PT will hold evaluation until orthopedics sees the patient.
--- NOTE | 2019-09-24 13:18 | PM.HP.1 ---
History of Present Illness History of Present Illness Date Patient Seen: 09/24/19 Time Patient Seen: 13:18 Chief complaint: GLF Narrative: History from record and from daughter Sarina. Patient is a poor historian, moaning and sleeping. 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 09/23/2019 patient was [place] down on the [place] who activated EMS. It is not clear how long patient has been down. Patient himself has underlying dementia and has no recollection of the events. He is on ASA 81 mg daily. Patient is known to have underlying history of seizures. Patient is on lamotrigine 150 mg BID. In the ED he was found to have right femoral neck fracture. Alcohol level and urine drug screen was negative. Daughter states patient drinks but only occasionally. States he has been binge drinker most of his life. Patient is complaining of right shoulder pain w/new decreased range of motion. 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) History of alcohol abuse (Chronic) Polyneuropathy (Chronic) Seizure (Chronic) Tobacco dependence (Chronic) Family & Social History Social History: Prior Living Arrangements RV Safety & Behavioral: Feels Safe in Current Yes Environment Been Physically Hurt or No Threatened By a Person Suicidal Ideation Description None Suicide Plan Description No Plan Tobacco & Substance use: Smoking Status Current every day smoker alcohol intake frequency 0-2 drinks per day Substance Use Type does not use Meds Home Medications and Allergies Home Medications Medication Instructions Recorded Confirmed Type aspirin 81 mg PO DAILY 09/24/19 09/24/19 History folic acid 1 mg PO DAILY 09/24/19 09/24/19 History lamotrigine 150 mg PO BID 09/24/19 09/24/19 History thiamine HCl (vitamin B1) 100 mg PO DAILY 09/24/19 09/24/19 History Allergies Allergy/AdvReac Type Severity Reaction Status Date / Time No Known Drug Allergies Allergy Verified 09/24/19 00:19 Review of Systems Review of Systems ROS: Yes unobtainable due to mental condition Exam Vital Signs (past 8 hours): - 09/24/19 08:05 Temperature 98.2 F Pulse Rate 88 Respiratory Rate 20 Blood Pressure 142/89 H Pulse Oximetry 91 Oxygen Delivery Method Room Air Oxygen Flow Rate 0 Narrative Exam Narrative: General examination: Lying in bed, some moaning, no acute distress swelling in the room daughter states that earlier he was quite uncomfortable HEENT exam: Normocephalic atraumatic. Disheveled-appearing Respiratory: Lungs clear to auscultation. Breathing on room air CV exam regular rate and rhythm Musculoskeletal exam: Lidoderm patch on right shoulder. Bump consistent with midshaft clavicle deformity chronic. No wounds. Patient is not able to comply with motor sensory exam. Left upper extremity appears atraumatic but again patient unable to comply with motor sensory exam. Is seen moving hands bilaterally. Right lower extremities externally rotated and shortened. Appears to be psoriatic plaques on the leg. No open wounds. Thigh is soft. Calves are soft. SCDs in place bilaterally. Wiggles toes. Does not participate in motor sensory exam further. Nontender with palpation of left lower extremity. Palpable distal pulses. Objective Labs Result Diagrams: 09/23/19 21:12 09/23/19 21:12 Labs: Laboratory Results - last 24 hr 09/23/19 09/23/19 09/23/19 21:12 21:12 21:12 WBC 7.0 RBC 4.83 Hgb 15.0 Hct 44.7 MCV 92.6 MCH 31.1 MCHC 33.5 RDW 14.9 H Plt Count 247 Neut % (Auto) 54.2 Lymph % (Auto) 25.4 [place] % (Auto) 10.0 Eos % (Auto) 9.3 H Baso % (Auto) 1.1 Neut # (Auto) 3800 Lymph # (Auto) 1800 [place] # (Auto) 700 Eos # (Auto) 700 H Baso # (Auto) 100 PT 11.3 INR 1.0 APTT 30 Sodium 142 Potassium 3.6 Chloride 105 Carbon Dioxide 25 BUN 22 H Creatinine 1.00 Estimated GFR > 60.0 BUN/Creatinine Ratio 22.0 Glucose 108 Lactate Calcium 9.4 Magnesium 2.3 Total Bilirubin 0.4 AST 32 ALT 13 Alkaline Phosphatase 72 Total Creatine Kinase 115 CK-MB (CK-2) 0.73 CK-MB (CK-2) Rel Index 0.6 L Troponin I < 0.012 NT-Pro-B Natriuret Pep 245 H Total Protein 8.5 H Albumin 4.4 Globulin 4.1 Albumin/Globulin Ratio 1.1 Procalcitonin Ur Bilirubin Confirm Urine RBC Urine WBC Urine Bacteria Urine Mucus Ur Culture Indicated? U Opiates 300ng/mL cut Ur Oxycodone Screen Urine Methadone Screen Ur Barbiturates Screen U Tricyclic Antidepress Ur Phencyclidine Scrn Ur Amphetamines Screen U Methamphetamines Scrn Ur MDMA Scrn (Ecstasy) U Benzodiazepines Scrn Urine Cocaine Screen U Marijuana (THC) Screen Ethyl Alcohol < 10 09/23/19 09/23/19 09/23/19 21:12 21:12 22:21 WBC RBC Hgb Hct MCV MCH MCHC RDW Plt Count Neut % (Auto) Lymph % (Auto) [place] % (Auto) Eos % (Auto) Baso % (Auto) Neut # (Auto) Lymph # (Auto) [place] # (Auto) Eos # (Auto) Baso # (Auto) PT INR APTT Sodium Potassium Chloride Carbon Dioxide BUN Creatinine Estimated GFR BUN/Creatinine Ratio Glucose Lactate 2.9 H Calcium Magnesium Total Bilirubin AST ALT Alkaline Phosphatase Total Creatine Kinase CK-MB (CK-2) CK-MB (CK-2) Rel Index Troponin I NT-Pro-B Natriuret Pep Total Protein Albumin Globulin Albumin/Globulin Ratio Procalcitonin < 0.05 Ur Bilirubin Confirm Negative Urine RBC 1-5/hpf Urine WBC None seen Urine Bacteria None seen Urine Mucus 2+ H Ur Culture Indicated? Cult not indicated U Opiates 300ng/mL cut Ur Oxycodone Screen Urine Methadone Screen Ur Barbiturates Screen U Tricyclic Antidepress Ur Phencyclidine Scrn Ur Amphetamines Screen U Methamphetamines Scrn Ur MDMA Scrn (Ecstasy) U Benzodiazepines Scrn Urine Cocaine Screen U Marijuana (THC) Screen Ethyl Alcohol 09/23/19 09/23/19 22:21 23:30 WBC RBC Hgb Hct MCV MCH MCHC RDW Plt Count Neut % (Auto) Lymph % (Auto) [place] % (Auto) Eos % (Auto) Baso % (Auto) Neut # (Auto) Lymph # (Auto) [place] # (Auto) Eos # (Auto) Baso # (Auto) PT INR APTT Sodium Potassium Chloride Carbon Dioxide BUN Creatinine Estimated GFR BUN/Creatinine Ratio Glucose Lactate 1.3 Calcium Magnesium Total Bilirubin AST ALT Alkaline Phosphatase Total Creatine Kinase CK-MB (CK-2) CK-MB (CK-2) Rel Index Troponin I NT-Pro-B Natriuret Pep Total Protein Albumin Globulin Albumin/Globulin Ratio Procalcitonin Ur Bilirubin Confirm Urine RBC Urine WBC Urine Bacteria Urine Mucus Ur Culture Indicated? U Opiates 300ng/mL cut Negative Ur Oxycodone Screen Negative Urine Methadone Screen Negative Ur Barbiturates Screen Negative U Tricyclic Antidepress Negative Ur Phencyclidine Scrn Negative Ur Amphetamines Screen Negative U Methamphetamines Scrn Negative Ur MDMA Scrn (Ecstasy) Negative U Benzodiazepines Scrn Negative Urine Cocaine Screen Negative U Marijuana (THC) Screen Negative Ethyl Alcohol Assessment & Plan Assessment & Plan narrative: Right femoral neck fracture displaced: Patient has a displaced femoral neck fracture. Discussed without surgical intervention patient is unlikely to mobilize. We discussed intervention is indicated to restore stability and promote early mobilization dried reduce the comorbidities associated with this injury in the elderly population. We did discuss risks with the fracture surgical and postsurgical course which include infection, dislocation, persistent pain, leg-length discrepancy, pneumonia, delirium, stroke, myocardial infarction, . The risks and benefits of surgery were discussed with patient's daughter and POA. Prior to presentation to the hospital he was living independently and independently ambulatory. We discussed a right hip hemiarthroplasty procedure for the displaced femoral neck fracture. Additionally the large head with the hemiarthroplasty should help reduce the risk of dislocation patient with history of alcohol dependence and seizure disorder. The risks and benefits of the procedure have been discussed with the patient even opportunity to ask questions. The risks of surgery include but are not limited to infection, malunion, nonunion, persistence of pain, damage to nerves and blood vessels, posttraumatic arthritis, DVT, PE, cardiopulmonary complications and . The patients POA (daughter) expressed a thorough understanding of the risks and benefits of surgery and has elected to proceed. Consent was signed today. Time Spent With Patient Time with patient: 15-24 minutes
--- NOTE | 2019-09-24 13:19 | PC.NURSE ---
Day shift: Pt has remained NPO today. Pt sleeping but awakens to voice/touch. Medicated for pain per MAR. talked with Pt's daughter about the surgery today. That paperwork is in chart. Bed alarm is on. Call light in reach.
[2019-09-24] MEDS: CEFAZOLIN 2 GM/100 ML FROZ.PIGGY IV ×3 (13:25→23:44)
--- NOTE | 2019-09-24 14:30 | CM.DANOTE ---
Addendum entered by Tatiana Melendez R.N. 09/24/19 15:34: Patients nurse has phone number for a person named Manav [phone] and it states in his admission assessment that per daughter (DPOA) manav is okay to speak with. CM/Rn called number and left voice message to call CM department back.. CM/RN is attempting to work on D/C plan for patient. Tatiana Melendez RN Addendum entered by Tatiana Melendez R.N. 09/24/19 14:55: CM/RN attempted to Contact patients daughter to determine D/C plan... Patients daughters phone number listed is not in service. [phone]... CM/Rn will attempt to call patients daughter again tomorrow to determine D/C plan. SNF is recommended at this time. CM/Rn will attempt to reach family in determining D/C goals. Tatiana Melendez RN Original Note: DCP Assessment: (EMR Reviewed): Patient is a 74 year old male admitted to the care of the hospitalist team following a GLF fall at home. CM attempted to meet with patient at bedside but he was been sleeping on multiple attempts. Per the medical notes patient lives alone in a trailer, has a history of seizures, ETOH abuse, and ETOH induced dementia. Patient's daughter, Sarina, reports concern about patients ability to care for himself and perform ADLs. No PCP noted in chart, will follow-up with daughter. I: Medicare/Medicaid P: Patient heading to surgery today for hip FX. D/t daughter's concern regarding patient's ability to safely return home initial plan is for SNF placement. Awaiting chance to talk to daughter and patient regarding their top choices for placement. DM will continue to monitor patient needs and be available for DC planning. SN Tatiana Nash RN Discharge Planning/Care Management CM Discharge Assessment Start: 09/24/19 14:25 Freq: Status: Active Protocol: Document 09/24/19 14:25 HS (Rec: 09/24/19 14:30 HS [id number]) Discharge Planning Assessment Assigned Cardiology Technician Tatiana Melendez RN/SN Saad DPOA/Assigned Designee Name Sarina Acosta (Daughter) Contact Information [phone] Advance Directives? No History Provided By Medical Record Has Patient been admitted in last 30 No days? Prior Living Arrangements RV Type of transporation used prior to Relies on Others admit Independent with ADL's No Is patient alert and oriented? No Needs Assistance With Bathing,Grooming,Meal Prep, Managing Medications,Home Chores / Shopping Caregiver for Another No Patient/Family Preference [facility] Facility Discharge Plan [facility] Facility Referrals Initiated [facility] If patient plan is SNF: Has PASSR been Yes: Pending patient/family completed? SNF choice Medicare Choice List Provided Yes Has Agency SNF been contacted No Comment Pending patient/family SNF choice Whiteboard Updated in Patient Room with Yes name and ext. # of Cardiology Technician Review Status In Process Next Review Type Continued Stay Review
--- NOTE | 2019-09-24 14:38 | PC.NURSE ---
Day shift: Pt off unit for surgery at approx 1440. SL now also.
--- NOTE | 2019-09-24 14:39 | PT-IP ANOTE ---
Pt evaluated by orthopedics. In conjunction with pt's daughter/DPOA, pt has elected hemiarthroplasty for displaced right femoral neck fracture. Will hold PT evaluation until after surgery.
--- NOTE | 2019-09-24 15:09 | DI.RAD.S_ITS ---
PROCEDURE: XR PELVIS 1-2V INDICATIONS: postop TECHNIQUE: One view(s) of the pelvis acquired. COMPARISON: [facility], CR, XR PELVIS 1-2V, 09/24/2019, 17:58. FINDINGS: Bones: Patient is status post right total hip arthroplasty. Right hip alignment is anatomic.. No suspicious bony lesions. Soft tissues: Expected post surgical changes along lateral aspect of right thigh is seen.. IMPRESSION: Post right total hip arthroplasty changes with anatomic right hip alignment. Dictated by: Jamel Genao M.D. on 09/24/2019 at 20:19 Approved by: Jamel Genao M.D. on 09/24/2019 at 20:20
[2019-09-24] MEDS: LACTATED RINGERS 1,000 ML 42 ML IV ×2 (15:27→16:23)
--- NOTE | 2019-09-24 16:12 | SUR.OPER ---
Lateral on padded OR bed. Gel axillary roll. Arms secured on padded armboard with pillow supporting top arm. Padded hip positioner braces x4 - anterior and posterior chest and pelvis. Additional gel pad used anterior pelvis. Gel pad under bottom leg from knee to foot and secured with tape over sheet.
[2019-09-24] MEDS: BUPIVACAINE LIPOSOME 266 MG/20 ML VIAL INJ (16:19)
[2019-09-24] MEDS: BUPIVACAINE 0.25% W/ EPI 30 ML VIAL 60 ML INJ (16:20)
--- NOTE | 2019-09-24 18:46 | P.OP_ITS ---
Operative Date/Time/Diagnoses Date of procedure: 09/24/19 Time of procedure: 16:00 Pre-op diagnosis: Displaced right femoral neck fracture. Seizure disorder Early-onset dementia Post-op diagnosis: same Procedure & Clinicians Procedure: Hemiarthroplasty for right femoral neck fracture. CPT code 67865 Same procedure as scheduled: Yes Indications: The patient is a 74-year-old male with a history of seizures and early onset dementia the had a ground level fall the night of admission. The patient was found down and found to have a displaced right femoral neck fracture. He was indicated for operative treatment tomorrow mobilization for pain relief. The risks benefits and alternatives to the procedure were explained to the patient's POA his daughter. Informed consent was signed. Risks benefits and alternatives of the operation were explained including but not limited to infection, bleeding, damage to nerves and vessels, pain, leg- length discrepancy, need for additional procedures, DVT, pulmonary embolism, Surgeon: Minal Gallego Licensed Psychologist Director: Frida Desai Anesthesia Type: General and Local (Exparel) Operative Notes Findings: Displaced right femoral neck fracture with moderate comminution Closure Type: primary Specimen(s): none sent Prosthetic devices, grafts, tissues, transplants, or devices: [employer] Synergy cemented stem femoral component size 12. [employer] unipolar head cobalt chromium 51 mm, small canal restrictor. 10 mm distal centralizer Estimated Blood Loss (mL): 200 Blood products transfused: none Tourniquet time (min): 0 Procedure in detail: The patient was seen in the preoperative area the site of surgery was marked and informed consent was confirmed. The patient was brought back to the operating room by the anesthesia team. The patient was positioned supine on the operative table. General anesthetic was administered. Patient was then moved into the lateral position. The hip positioner pads were then placed. A well-padded axillary roll was placed and the arms were appropriately positioned. Right lower extremity was then prepped and draped from the ankle to the iliac crest with ChloraPrep in the standard fashion and sterile drapes were placed. A formal time-out procedure was performed confirming the patient's side and site of surgery presence of informed consent and administration of appropriate preoperative antibiotics. The hip was approached through a standard posterior approach. Dissection was carried down through the skin and subcutaneous tissues sharply through the skin and then with the Bovie through the subcutaneous tissues. The fascia shayna was exposed and opened. The fascia was opened using the Bovie and the gluteus rosalind was spread with finger retraction. The Charnley retractor was then placed. Inflamed bursa was resected. The piriformis was then identified. Cobra retractor was placed under the gluteus medius to help expose the external rotators. The piriformis and external rotators were tagged with 2 0 FiberWire and divided off the trochanter. These were retracted posteriorly to protect the sciatic nerve. The femur was then flexed and internally rotated to present the femoral neck and the fracture. The corkscrew and a Goins were used to remove the femoral head from the acetabulum. This was measured to fit a 51 mm head. Next the femur was presented. A cleanup neck cut was made in a minimal fashion. The trial head size 51 was trialed in the acetabulum. Attention was turned to the femur. The canal was opened with a box cutting osteotome. This followed by the canal finer and a lateralizing Reamer. The tapered reamers were then used up to a size 11 and eventually a 12. Then broaching was done sequentially up to 11. Trial head was placed and an x-ray was taken this showed the stem in varus position. Then the components were removed and the femoral preparation was repeated using the box osteotomes lateralizing Reamer and broaches eventually up to a size 12 broach. We found this felt well in the canal distally and care was made sure to get lateral in the trochanter. A standard neck and head were then trialed but felt to be too loose therefore a +4 was selected with good stability. Patient was stable in the position of sleep, squatting and could be put through a range of motion with 70? of internal rotation without dislocation. This was felt to be appropriate. Therefore the final components were selected. The final stem size was a 12th. The femoral canal was prepared the distal small restrictor was placed. The bone was meticulously cleaned with the pulse lavage. The canal was then packed with gauze. Two packages of cement were mixed and carefully pressurized into the femoral canal. The femoral component was then placed without difficulty. A repeat trial reduction showed good range of motion and stability. Final head and neck were then carefully placed. The wound was irrigated. They capsule and muscular flap was repaired with 2. Ethibond. Next external rotators were repaired to the greater trochanter through drill holes in the greater trochanter using the 2.5 drill and a Obando suture Passer. These were tied with the leg in abduction. Wound was irrigated again. The fascia shayna was closed with 0 Vicryl in the subcutaneous layer with 2 O Vicryl and skin missael. An Aquacel dressing was placed. Abduction pillow was placed for protection. Through drapes removed and the patient was taken to the recovery room in good condition. There no immediate complications from this procedure. All counts were correct. A postoperative AP pelvis x-ray was obtained in the PACU showed appropriate alignment of the right cemented hip hemiarthroplasty with no evidence of fracture. Complications: none Post-operative Condition: stable Disposition: PACU Plan for aftercare: Weightbear as tolerated. Will use abduction pillow while in bed for the 1st few days until he has top proper posterior hip precautions with therapy. Posterior hip precautions for 6 weeks postoperatively. Lovenox for DVT prophylaxis times 28 days after surgery. Follow up in 10-14 days with [facility]. Discharge per primarily when medically stable. Anticipate snf discharge. has acute nondisplaced r distal clavicle fracture (on top of chronic midshaft malunion) nonop clavicle. recommend platform walker
--- NOTE | 2019-09-24 19:33 | PM.PNPO.1 ---
Subjective Subjective Date Patient Seen: 09/24/19 Time Patient Seen: 19:33 Interval history: Postop day 0 right cemented hemiarthroplasty for right femoral neck fracture. 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) Exam Vital Signs (past 8 hours): - 09/24/19 15:25 09/24/19 18:59 09/24/19 19:04 Temperature 99.1 F 98.7 F Pulse Rate 90 115 H 114 H Respiratory Rate 15 10 L 12 Blood Pressure 150/93 H 115/71 110/59 L Pulse Oximetry 94 94 94 09/24/19 19:09 09/24/19 19:14 09/24/19 19:19 Temperature Pulse Rate 111 H 110 H 106 H Respiratory Rate 12 12 18 Blood Pressure 105/61 96/61 104/63 Pulse Oximetry 96 96 93 09/24/19 19:24 Temperature Pulse Rate 112 H Respiratory Rate 16 Blood Pressure 110/72 Pulse Oximetry 93 Oxygen Delivery Method Nasal Cannula Oxygen Flow Rate 2 Objective Labs Result Diagrams: 09/23/19 21:12 09/23/19 21:12 Labs: Laboratory Results - last 24 hr 09/23/19 09/23/19 09/23/19 21:12 21:12 21:12 WBC 7.0 RBC 4.83 Hgb 15.0 Hct 44.7 MCV 92.6 MCH 31.1 MCHC 33.5 RDW 14.9 H Plt Count 247 Neut % (Auto) 54.2 Lymph % (Auto) 25.4 [place] % (Auto) 10.0 Eos % (Auto) 9.3 H Baso % (Auto) 1.1 Neut # (Auto) 3800 Lymph # (Auto) 1800 [place] # (Auto) 700 Eos # (Auto) 700 H Baso # (Auto) 100 PT 11.3 INR 1.0 APTT 30 Sodium 142 Potassium 3.6 Chloride 105 Carbon Dioxide 25 BUN 22 H Creatinine 1.00 Estimated GFR > 60.0 BUN/Creatinine Ratio 22.0 Glucose 108 Lactate Calcium 9.4 Magnesium 2.3 Total Bilirubin 0.4 AST 32 ALT 13 Alkaline Phosphatase 72 Total Creatine Kinase 115 CK-MB (CK-2) 0.73 CK-MB (CK-2) Rel Index 0.6 L Troponin I < 0.012 NT-Pro-B Natriuret Pep 245 H Total Protein 8.5 H Albumin 4.4 Globulin 4.1 Albumin/Globulin Ratio 1.1 Procalcitonin Ur Bilirubin Confirm Urine RBC Urine WBC Urine Bacteria Urine Mucus Ur Culture Indicated? U Opiates 300ng/mL cut Ur Oxycodone Screen Urine Methadone Screen Ur Barbiturates Screen U Tricyclic Antidepress Ur Phencyclidine Scrn Ur Amphetamines Screen U Methamphetamines Scrn Ur MDMA Scrn (Ecstasy) U Benzodiazepines Scrn Urine Cocaine Screen U Marijuana (THC) Screen Ethyl Alcohol < 10 09/23/19 09/23/19 09/23/19 21:12 21:12 22:21 WBC RBC Hgb Hct MCV MCH MCHC RDW Plt Count Neut % (Auto) Lymph % (Auto) [place] % (Auto) Eos % (Auto) Baso % (Auto) Neut # (Auto) Lymph # (Auto) [place] # (Auto) Eos # (Auto) Baso # (Auto) PT INR APTT Sodium Potassium Chloride Carbon Dioxide BUN Creatinine Estimated GFR BUN/Creatinine Ratio Glucose Lactate 2.9 H Calcium Magnesium Total Bilirubin AST ALT Alkaline Phosphatase Total Creatine Kinase CK-MB (CK-2) CK-MB (CK-2) Rel Index Troponin I NT-Pro-B Natriuret Pep Total Protein Albumin Globulin Albumin/Globulin Ratio Procalcitonin < 0.05 Ur Bilirubin Confirm Negative Urine RBC 1-5/hpf Urine WBC None seen Urine Bacteria None seen Urine Mucus 2+ H Ur Culture Indicated? Cult not indicated U Opiates 300ng/mL cut Ur Oxycodone Screen Urine Methadone Screen Ur Barbiturates Screen U Tricyclic Antidepress Ur Phencyclidine Scrn Ur Amphetamines Screen U Methamphetamines Scrn Ur MDMA Scrn (Ecstasy) U Benzodiazepines Scrn Urine Cocaine Screen U Marijuana (THC) Screen Ethyl Alcohol 09/23/19 09/23/19 22:21 23:30 WBC RBC Hgb Hct MCV MCH MCHC RDW Plt Count Neut % (Auto) Lymph % (Auto) [place] % (Auto) Eos % (Auto) Baso % (Auto) Neut # (Auto) Lymph # (Auto) [place] # (Auto) Eos # (Auto) Baso # (Auto) PT INR APTT Sodium Potassium Chloride Carbon Dioxide BUN Creatinine Estimated GFR BUN/Creatinine Ratio Glucose Lactate 1.3 Calcium Magnesium Total Bilirubin AST ALT Alkaline Phosphatase Total Creatine Kinase CK-MB (CK-2) CK-MB (CK-2) Rel Index Troponin I NT-Pro-B Natriuret Pep Total Protein Albumin Globulin Albumin/Globulin Ratio Procalcitonin Ur Bilirubin Confirm Urine RBC Urine WBC Urine Bacteria Urine Mucus Ur Culture Indicated? U Opiates 300ng/mL cut Negative Ur Oxycodone Screen Negative Urine Methadone Screen Negative Ur Barbiturates Screen Negative U Tricyclic Antidepress Negative Ur Phencyclidine Scrn Negative Ur Amphetamines Screen Negative U Methamphetamines Scrn Negative Ur MDMA Scrn (Ecstasy) Negative U Benzodiazepines Scrn Negative Urine Cocaine Screen Negative U Marijuana (THC) Screen Negative Ethyl Alcohol Assessment & Plan Post-op Postoperative Procedures: Procedures Operation Date: 09/24/19 16:45 Actual Procedures Side Surgeon p Hip Hemiarthroplasty Right Minal Gallego MD 1. Right femoral neck fracture status post right cemented hemiarthroplasty. Weightbear as tolerated. Posterior hip precautions. Use abduction pillow in bed 1st few days until can understand posterior hip precautions. Lovenox 28 days for DVT prophylaxis. SCDs while in hospital. Likely group home discharge. As pain medications with oxycodone, Tylenol, ketorolac. Labs ordered for postop day 1. Two doses of postop antibiotics ordered. 2. Right nondisplaced distal clavicle fracture non operative. Recommend platform walker. With physical therapy Follow-up orthopedic clinic 10-14 days for repeat x-rays right clavicle and right hip. Follow-up 10-14 days Orthopedic Clinic for staple removal. Quality VTE Deep Vein Thrombosis/Pulmonary Embolism Present on Admission: No
--- NOTE | 2019-09-24 19:33 | SUR.PHASEI ---
Patient sleeping. Arouses to voice, but only moans. Does not respond to yes/no questions. Drsg CDI. Pedal pulses palpable. VSS. Kaur to gravity.
[2019-09-24] MEDS: LACTATED RINGERS 1,000 ML 75 ML IV (20:24)
[2019-09-24] MEDS: DOCUSATE 100 MG CAPSULE PO (20:25)
[2019-09-24] MEDS: lamoTRIgine 100 MG TABLET 150 MG PO (20:25)
[2019-09-24] MEDS: OXYCODONE IR 5 MG TABLET PO (20:26)
[2019-09-24 20:41] LABS: Add Manual Diff / Slide Review NO; Basophils Absolute Auto 100 /uL (0-100); Basophils Percent Auto 0.5 % (0-2); Eosinophils Absolute Auto 700 /uL (0-450); Eosinophils Percent Auto 5.1 % (2-4); Hematocrit 41.4 % (41-53); Hemoglobin 13.8 g/dL (13.5-17.5); Lymphocytes Absolute Auto 1700 /uL (1100-4500); Lymphocytes Percent Auto 12.9 % (25-40); Mean Corpuscular HGB Conc 33.3 % (30-36); Monocytes Absolute Auto 1100 /uL (0-900); Monocytes Percent Auto 8.5 % (3-14); Neutrophils Absolute Auto 9400 /uL (1500-7000); Platelet Count 179 X10^3/uL (150-400); Red Blood Cell Count 4.46 X10^6/uL (4.5-5.9); Red Cell Distribution Width 14.8 % (11.6-14.8); White Blood Cell Count 12.9 X10^3/uL (4.5-11.0)
[2019-09-24 21:01] LABS: Blood Urea Nitrogen 12 mg/dL (9-20); Calcium 8.1 mg/dL (8.4-10.2); Carbon Dioxide 24 mmol/L (22-32); Chloride 108 mmol/L (98-107); Estimated Glomerular Filt Rate > 60.0 mL/min (>60); Glucose 121 mg/dL (80-110); HEMOLYSIS 102 (0-50); Sodium 139 mmol/L (137-145)
[2019-09-24] MEDS: KETOROLAC 30 MG/ML VIAL IV (23:43)
[2019-09-24] MEDS: MORPHINE 4 MG/ML INJ 2 MG IV (23:44)
[2019-09-25] VITALS (12 sets, daily range): BP systolic 115–163; BP diastolic 68–99; PULSE 115–152; RESP 18–34; TEMP 36.9–38.2; O2SAT 89–97
[2019-09-25] MEDS: OXYCODONE IR 5 MG TABLET PO (04:18)
[2019-09-25] MEDS: SODIUM CHLORIDE 0.9% 500 ML 1000 ML IV ×2 (04:47→05:54)
[2019-09-25] MEDS: MORPHINE 2 MG/ML INJ IV ×3 (04:48→22:43)
[2019-09-25] MEDS: METOPROLOL TARTRATE 5 MG/5 ML INJ IV ×2 (04:50→05:23)
[2019-09-25 04:58] LABS: Add Manual Diff / Slide Review NO; Basophils Absolute Auto 0 /uL (0-100); Basophils Percent Auto 0.3 % (0-2); Eosinophils Absolute Auto 200 /uL (0-450); Eosinophils Percent Auto 1.5 % (2-4); Hematocrit 41.4 % (41-53); Hemoglobin 13.9 g/dL (13.5-17.5); Lymphocytes Absolute Auto 600 /uL (1100-4500); Lymphocytes Percent Auto 4.5 % (25-40); Mean Corpuscular HGB Conc 33.6 % (30-36); Mean Corpuscular Hemoglobin 31.3 PG (26-34); Mean Corpuscular Volume 93.2 fL (80-100); Monocytes Absolute Auto 600 /uL (0-900); Monocytes Percent Auto 4.7 % (3-14); Neutrophils Absolute Auto 12200 /uL (1500-7000); Platelet Count 170 X10^3/uL (150-400); Red Blood Cell Count 4.44 X10^6/uL (4.5-5.9); Red Cell Distribution Width 14.9 % (11.6-14.8); White Blood Cell Count 13.7 X10^3/uL (4.5-11.0)
[2019-09-25 05:07] LABS: BUN Creatinine Ratio 16.3 (6-22); Blood Urea Nitrogen 13 mg/dL (9-20); Calcium 8.3 mg/dL (8.4-10.2); Carbon Dioxide 24 mmol/L (22-32); Chloride 104 mmol/L (98-107); Creatine Kinase 1171 U/L (55-170); Estimated Glomerular Filt Rate > 60.0 mL/min (>60); Glucose 130 mg/dL (80-110); HEMOLYSIS 26 (0-50); Magnesium 1.8 mg/dL (1.6-2.3); Potassium 4.5 mmol/L (3.4-5.1); Sodium 140 mmol/L (137-145)
[2019-09-25 05:18] LABS: Troponin I 0.058 ng/mL (0.01-0.034)
[2019-09-25 05:22] LABS: CKMB % Relative Index 0.4 % (1.5-5.0); Creatine Kinase MB 4.48 ng/mL (<2.37)
[2019-09-25] MEDS: LORazepam 2 MG/ML INJ 0.5 MG IV (05:23)
--- NOTE | 2019-09-25 05:34 | PM.EVENT ---
Event Note Date Patient Seen: 09/25/19 Time Patient Seen: 04:40 Event Note: Earlier in the morning patient when in to an irregular rhythm. Appear to be in a-flutter. No EKG available to confirm, as patient could treated and converted to a sinus rhythm before ordered EKG was performed. Patient was given a 500 cc bolus, to mg of morphine, and 5 mg of metoprolol. After administration of metoprolol he converted to sinus tachycardia. Heart rate has come down from 150s to 120s. While in atrial flutter patient complained of nonspecific chest discomfort. He was anxious. His arms were clenched on the bed. He was not hypoxic or short of breath. He did endorse pain at the right hip. On assessment patient appeared in an overall generalized discomfort. Patient was awake and alert, his communication appear to be a baseline, but he was unable to describe his symptoms. Right hip with some bruising and ecchymosis, no palpable hematoma or induration. He had adequate pulses in the right lower extremity. Abdomen is soft. No abdominal retroperitoneal pain on palpation. Patient did have a change in rhythm after administration of metoprolol. A flutter to sinus tachycardia. He did report improvement in overall discomfort, but still appeared anxious. Patient received 0.5 mg of IV Ativan and additional dose of metoprolol 5 mg IV. Heart rate has improved, slightly, to 110s. Patient did not complain of any discomfort at that time. Stat labs collected, CBC, BMP, lactate, CK, and troponin Results were reviewed no significant electrolyte, metabolic, or renal changes. Lactic acid was significantly elevated at 5. CK was elevated at 1171. Troponin elevated 0.058. EKG was nonischemic. Check CXR this am trend lactate and troponin Q3H x2, then re-evaluate 0900 and 1200 Stop lactated ringers Give another 500 cc bolus of NS. Then continue IVF NS at 150 ml/hr Patient has had suboptimal urine output this shift. Patient has not had an overt witnessed seizure this shift. Blood pressure has been stable
--- NOTE | 2019-09-25 05:35 | PC.NURSE ---
Notified ROXANA Li and JEWEL Paul of lactate acid 5.0 critical lab value. HANGERSMITH aware
[2019-09-25] MEDS: SODIUM CHLORIDE 0.9% 1,000 ML 150 ML IV ×3 (05:54→22:23)
[2019-09-25] MEDS: KETOROLAC 30 MG/ML VIAL IV (06:15)
--- NOTE | 2019-09-25 06:49 | DI.RAD.S_ITS ---
PROCEDURE: XR CHEST 1V INDICATIONS: chest pain, arrhythmia TECHNIQUE: One view of the chest was acquired. COMPARISON: [facility], CT, CT CHEST ABD PEL W CON, 09/23/2019, 21:18. [facility], CR, XR CHEST 1 VIEW, 12/11/2018, 13:10. FINDINGS: Surgical changes and devices: None. Lungs and pleura: Biapical scarring, centrilobular emphysema and right apical scarring and architectural distortion probably unchanged since recent CT dated 09/23/19. There are also bibasilar ill-defined patchy opacities No pleural effusions or pneumothorax. Mediastinum: Mediastinal contours appear normal. Heart size is normal. Bones and chest wall: No suspicious bony lesions. Chronic right clavicle fracture. Overlying soft tissues appear unremarkable. IMPRESSION: Diffuse interstitial disease, scarring or atelectasis. No definite new focal consolidation although it would be technically difficult to exclude early bronchopneumonia (or developing pulmonary edema) in this setting. If there is persistent clinical diagnostic uncertainty, continued surveillance with short interval chest radiographs after treatment is recommended. Dictated by: Sammy Ferrer M.D. on 09/25/2019 at 9:01 Approved by: Sammy Ferrer M.D. on 09/25/2019 at 9:12
[2019-09-25 06:53] LABS: Reflexed Lactate in 2 Hours Y
[2019-09-25 07:03] LABS: Lactate 2HR (Lactic Acid Rflx) 1.5 mmol/L (0.7-2.1)
--- NOTE | 2019-09-25 07:04 | PC.NURSE ---
Addendum entered by Dee Pugh R.N. 09/25/19 07:32: low urine output. Provider aware lactic acid critical Troponins slightly elevated. HTN but stable Original Note: Pts HR 150s sustained. ROXANA Li notified and came to room to assess pt. Placed on Tele; 500mL NS bolus, 5mg IV metoprolol, 2mg IV morphine, labs and EKG ordered. Pt complaining of some chest pain; he is confused at baseline however so its hard for him to fully state whats hurting more: hip or chest Another 5mg IV metoprolol given, along with 0.5mg IV ativan. HR improving now down into the 110s-120. Pt stating his chest does not hurt now, however it is hard to get him to fully answer in a meaningful way as he just keeps moaning mostly. Another 500mL NS bolus given as well and fluids changed to NS. Good pulses in extremities. Right leg has some bruising pooling near the hip as well. Dressing is clean, dry and intact. 2L NC at 93% throughout night mostly. Pt slightly wheezy at times, has a cough that he sometime can bring up secretions but mostly swallowing it. Tele: afib/aflutter
--- NOTE | 2019-09-25 07:20 | P.PN_ITS ---
Subjective Subjective Date Patient Seen: 09/25/19 Time Patient Seen: 07:20 Interval history: pod 1 right femoral neck fracture treatment with hemiarthroplasty Nondisplaced distal clavicle fracture. 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 Currently sinus tachycardia. Elevated lactate, CK, trending troponins per hospitalist team. Patient lying in bed sleeping. Nasal cannula oxygen 2 L Exam Vital Signs (past 8 hours): - 09/24/19 23:55 09/25/19 03:48 09/25/19 04:47 Temperature 98.5 F Pulse Rate 124 H 152 H Respiratory Rate 18 18 Blood Pressure 145/99 H 163/92 H Pulse Oximetry 93 95 95 09/25/19 05:23 09/25/19 06:14 Temperature Pulse Rate 126 H 115 H Respiratory Rate Blood Pressure Pulse Oximetry Oxygen Delivery Method Nasal Cannula Oxygen Flow Rate 2 Narrative Exam Narrative: General lying in bed sleeping.--no acute distress.- Respiratory: Nasal cannula 2 L. satting 95%. CV exam: Sinus tach Musculoskeletal exam: Aquacel dressing on right hip. Thigh is soft. Calves are soft. SCDs in place. Does not participate in motor sensory exam which is similar to preoperative, brisk capillary refill Right upper extremity. Chronic bump mid clavicle consistent with prior malunion. No skin tenting. No erythema. Again limited examination due to pat ient factors. Objective Labs Result Diagrams: 09/25/19 04:45 09/25/19 04:45 Labs: Laboratory Results - last 24 hr 09/24/19 09/24/19 09/25/19 20:35 20:35 04:45 WBC 12.9 H D 13.7 H RBC 4.46 L 4.44 L Hgb 13.8 13.9 Hct 41.4 41.4 MCV 93.0 93.2 MCH 31.0 31.3 MCHC 33.3 33.6 RDW 14.8 14.9 H Plt Count 179 170 Neut % (Auto) 73.0 89.0 H Lymph % (Auto) 12.9 L 4.5 L [place] % (Auto) 8.5 4.7 Eos % (Auto) 5.1 H 1.5 L Baso % (Auto) 0.5 0.3 Neut # (Auto) 9400 H 82101 H Lymph # (Auto) 1700 600 L [place] # (Auto) 1100 H 600 Eos # (Auto) 700 H 200 Baso # (Auto) 100 0 Sodium 139 Potassium TNP Chloride 108 H Carbon Dioxide 24 BUN 12 Creatinine 0.80 Estimated GFR > 60.0 BUN/Creatinine Ratio 15.0 Glucose 121 H Lactate Calcium 8.1 L Magnesium Total Creatine Kinase CK-MB (CK-2) CK-MB (CK-2) Rel Index Troponin I 09/25/19 09/25/19 09/25/19 04:45 04:45 06:40 WBC RBC Hgb Hct MCV MCH MCHC RDW Plt Count Neut % (Auto) Lymph % (Auto) [place] % (Auto) Eos % (Auto) Baso % (Auto) Neut # (Auto) Lymph # (Auto) [place] # (Auto) Eos # (Auto) Baso # (Auto) Sodium 140 Potassium 4.5 Chloride 104 Carbon Dioxide 24 BUN 13 Creatinine 0.80 Estimated GFR > 60.0 BUN/Creatinine Ratio 16.3 Glucose 130 H Lactate 5.0 H* 1.5 Calcium 8.3 L Magnesium 1.8 Total Creatine Kinase 1171 H D CK-MB (CK-2) 4.48 H CK-MB (CK-2) Rel Index 0.4 L Troponin I 0.058 H Assessment & Plan Post-op Postoperative Procedures: Procedures Operation Date: 09/24/19 16:45 Actual Procedures Side Surgeon p Hip Hemiarthroplasty Right Minal Gallego MD 1. Right femoral neck fracture status post right cemented hemiarthroplasty. Weightbear as tolerated. Posterior hip precautions. Use abduction pillow in bed 1st few days until can understand posterior hip precautions. Lovenox 28 days for DVT prophylaxis. SCDs while in hospital. Likely jail discharge. As pain medications with oxycodone, Tylenol, ketorolac. Two doses of postop antibiotics ordered. Postop H&H stable 2. Right nondisplaced distal clavicle fracture non operative. Recommend platform walker. With physical therapy Follow-up orthopedic clinic 10-14 days for repeat x-rays right clavicle and right hip. Follow-up 10-14 days Orthopedic Clinic for staple removal. 3. Appreciate hospitalist management of medical comorbidities.--hospitalist trending troponins. re-hydration Quality VTE Deep Vein Thrombosis/Pulmonary Embolism Present on Admission: No
[2019-09-25] MEDS: CEFAZOLIN 2 GM/100 ML FROZ.PIGGY IV (10:01)
[2019-09-25] MEDS: NICOTINE 21 MG PATCH TOP (10:23)
[2019-09-25] MEDS: ENOXAPARIN 40 MG/0.4 ML SYRINGE SUBCUT (10:23)
[2019-09-25] MEDS: LORazepam 2 MG/ML INJ 1 MG IV (10:23)
[2019-09-25 11:35] LABS: Creatine Kinase 1139 U/L (55-170)
[2019-09-25 11:36] LABS: Lactate (Lactic Acid) 1.8 mmol/L (0.7-2.1)
[2019-09-25 11:47] LABS: Troponin I 0.062 ng/mL (0.01-0.034)
[2019-09-25 11:51] LABS: CKMB % Relative Index 0.2 % (1.5-5.0); Creatine Kinase MB 2.59 ng/mL (<2.37)
[2019-09-25 12:32] LABS: Appearance Urine UA CLEAR; Bilirubin Urine UA NEGATIVE (NEGATIVE); Color Urine UA YELLOW; Glucose Urine UA NEGATIVE (Negative); Ketones Urine UA TRACE (NEGATIVE); Leukocyte Esterase Urine UA TRACE (NEGATIVE); Nitrite Urine UA NEGATIVE (Negative); Occult Blood Urine UA 2+ (Negative); Protein Urine UA 1+ (Negative); Specific Gravity Urine UA 1.015 (1.000-1.035); Urobilinogen Urine UA 0.2 E.U./dL (0.2)
[2019-09-25 12:44] LABS: Bacteria Urine Occasional (0-1); Culture Indicated Urine Cult Not Indicated; RBC Urine 5-10/HPF (0-5/HPF); Squamous Epithelial Cell Urine 0-1 /HPF (0-5/HPF); WBC Urine 5-10/HPF (0-5/HPF)
[2019-09-25 13:50] LABS: PCO2 ABG 32.1 mmHg (35-45); PO2 ABG 57 mmHg (80-100); pH ABG 7.42 (7.35-7.45)
[2019-09-25 13:51] LABS: Fractionated Inspired Oxygen 0.24; HCO3 ABG 21 mmol/L (22-26); Oxygen Saturation ABG 90 % (95-100); TCO2 ABG 22 mmol/L (21-31)
--- NOTE | 2019-09-25 14:01 | DI.CT.S_ITS ---
PROCEDURE: CT HEAD/BRAIN WO CON INDICATIONS: altered mental status TECHNIQUE: Noncontrast 4.5 mm thick angled axial sections acquired from the foramen magnum to the vertex, with coronal and sagittal reformats. For radiation dose reduction, the following was used: automated exposure control, adjustment of mA and/or kV according to patient size. COMPARISON: [facility], CT, CT HEAD/BRAIN WO CON, 09/23/2019, 21:18. FINDINGS: Image quality: Excellent. CSF spaces: Basal cisterns are patent. No extra-axial fluid collections. The ventricles are symmetric in size and shape. Brain: Nuclear linear hyperdensity noted along the posterior periphery of the left temporal lobe infarct compatible with acute parenchymal hemorrhage is related to hemorrhagic transformation associated with subacute infarct. There is cerebral volume loss for age, with resultant ventricular and sulcal prominence. There are periventricular and deep white matter chronic small vessel ischemic changes. Chronic infarcts involving the right ttkmxsw-xzbomwvs-jjjixbehx lobe, left frontal lobe and left temporal lobe are stable. There is intracranial internal carotid artery and vertebral artery atherosclerosis. Skull and face: Calvarium and visualized facial bones appear intact, without suspicious lesions. Sinuses: Visualized sinuses and mastoids are clear. IMPRESSION: 1. New, small, curvilinear hyperdensity in the left temporal lobe adjacent to the posterior margin of chronic left temporal infarct compatible with small area of acute parenchymal hemorrhage possibly secondary to hemorrhagic transformation of underlying subacute infarct. 2. Otherwise ,stable examination compared to 09/23/2019. 3. Findings telephoned to Dr. Jan Miramontes on 09/25/2019 at 1501 hrs. Dictated by: Yanci Falcon MD, PhD on 09/25/2019 at 14:53 Approved by: Yanci Falcon MD, PhD on 09/25/2019 at 15:01
--- NOTE | 2019-09-25 14:17 | PC.NURSE ---
Day shift: Pt off unit at approx [address]
--- NOTE | 2019-09-25 14:31 | PC.NURSE ---
Day shift: Back from CT at 1430. Back on IV fluids and O2 monitor.
--- NOTE | 2019-09-25 14:48 | PT-IP ANOTE ---
Reviewed chart and attempted to initiate PT evaluation. Pt was obtunded, not responding to voice or sternal rubs. He was unable to participate in any meaningful way. Spent 10 minutes gathering information from the pt's daughter who states the pt has been living at [facility] in an with 3 steps to enter, no railing. She states he walks without assistive device at baseline but has been less active during the winter months. Daughter states the pt has a bath aide through [facility] who provides some assist with dressing and bathing tasks. The daughter has been investigating becoming the pt's DEENA caregiver. She is considering discharge to SNF with a stated preference for [facility] where the pt could potentially transition to group home care. No charge.
--- NOTE | 2019-09-25 15:12 | DI.MRI.S_ITS ---
PROCEDURE: MR STROKE Pre- and post-contrast brain MRI, non-contrast brain MR angiogram, pre- and postcontrast neck MR angiogram INDICATIONS: brain bleed, possible stroke, altered mental status TECHNIQUE: Brain: Noncontrast axial T1 spin echo, axial T2 fast spin echo, sagittal and axial FLAIR, coronal T2 fast spin echo, axial gradient echo, axial diffusion and ADC through the brain. After the administration of contrast, axial 3D VIBE of the cranial vasculature and brain. Brain MRA: Non-contrast 3-D time of flight MR angiogram, with multiple wlwvvbp-mknjplmoq-pwxqedzjql (MIP) reformats performed. Neck MRA: Axial and sagittal TruFISP through the neck. Coronal dynamic MR angiogram during administration of contrast in the arterial and venous phases, with 3-dimenstional lpfwuqy-nmageblut-hikpuxvbei (MIP) reformats constructed from subtraction images. COMPARISON: [facility], CT, CT HEAD/BRAIN WO CON, 09/25/2019, 14:13. [facility], CT, CT HEAD/BRAIN WO CON, 09/23/2019, 21:18. FINDINGS: Image quality: Excellent. BRAIN: CSF spaces: Ventricles remain stable in size and shape. Basal cisterns are patent. No extra-axial fluid collections. Brain: There is curvilinear blooming artifact on GRE sequences of the posterior margin of prior encephalomalacia involving the left temporal lobe correlating with hypodensity seen on recent CT. This is consistent with hemorrhagic products. There is also a tiny focus of diffusion restriction abnormality with associated low signal on ADC map at the posterior margin of chronic left temporal lobe encephalomalacia. No other areas of diffusion restriction abnormalities to suggest other areas of acute ischemia/infarction. No mass effects. Servin-white matter interface is normal. Stable appearance of encephalomalacia involving the left frontal lobe, right parietal lobe, and left temporal lobe. Brainstem appears normal. Normal intravascular flow voids are present. No suspicious areas of abnormal intracranial enhancement. Skull and face: Calvarial marrow signal is normal. Orbits appear normal. Sinuses: Mild mucosal thickening of the sphenoid and scattered ethmoid sinuses. Mastoid air cells appear clear. BRAIN MR ANGIOGRAM: Anterior circulation: Intracranial internal carotid arteries appear patent. The flow within the paired anterior cerebral arteries appear patent. The flow within the middle cerebral arteries is normal and symmetric. The anterior communicating artery is seen. No hemodynamically significant stenoses, occlusions, or aneurysms. Posterior circulation: The visualized portions of the vertebral arteries demonstrate normal caliber, and join to form a normal appearing basilar artery. The flow within the posterior cerebral arteries appear patent. No hemodynamically stenoses, occlusions, or aneurysms. NECK MR ANGIOGRAM: Carotids: Great vessels demonstrate a conventional anatomy as they arise from the aortic arch. The origins of the common carotid arteries appear patent. The calibers and courses of both common carotid arteries are normal. The bifurcation regions appear normal bilaterally. The internal carotid arteries demonstrate normal course and caliber. Posterior circulation: The origins of the vertebral arteries appear patent. More superior portions of both vertebral arteries demonstrate normal course and caliber, and join to form a normal appearing basilar artery. Miscellaneous: Subclavian arteries appear patent. Pre-contrast images through the neck show no soft tissue abnormalities. IMPRESSION: BRAIN MRI: 1. Very small focus of diffusion restriction abnormality near the posterior margin of left temporal lobe encephalomalacia from remote infarction likely due to acute/subacute infarction. This correlates with the area of new hemorrhage seen on comparison CT which is supported by blooming artifact on GRE sequences from today's study. No other acute intracranial abnormalities identified. Consider continued follow up noncontrast head CTs to document stability versus resolution of intracranial hemorrhage. 2. Stable appearance of encephalomalacia involving the right frontal lobe, left frontal lobe, and left temporal lobe. 3. Mild sphenoid and scattered ethmoid sinus disease. BRAIN MR ANGIOGRAM: Negative brain MRA. NECK MR ANGIOGRAM: Negative neck MRA. Findings were discussed with Manuel Li at 2325 hrs. Dictated by: Gomez Rodríguez M.D. on 09/25/2019 at 22:50 Approved by: Gomez Rodríguez M.D. on 09/25/2019 at 23:30
[2019-09-25 15:37] LABS: Creatine Kinase 1044 U/L (55-170)
[2019-09-25 15:38] LABS: Lactate (Lactic Acid) 1.3 mmol/L (0.7-2.1)
[2019-09-25 15:50] LABS: Troponin I 0.052 ng/mL (0.01-0.034)
[2019-09-25 15:52] LABS: CKMB % Relative Index 0.2 % (1.5-5.0); Creatine Kinase MB 2.11 ng/mL (<2.37)
--- NOTE | 2019-09-25 16:17 | CM.DPC ---
DCP continued: CM/RN met with patients daughter at the bedside and discussed patients condition and D/C plan. Patients daughter would like to see patient go to a SNF in [place] at D/C. CM/RN gave patients daughter medicare choice list and she choose [facility] and [facility]. Clinicals were faxed and Mehnaz at [facility] is reviewing and Mirta at [facility] is reviewing. Patient is still not responding and is not ready for D/c currently but Cm department will keep working on a safe D/C plan to a SNF. CM/RN asked if patients phone number is correct [phone] patients daughter stated it was correct but she was having service issues yesterday but it is working now. Tatiana Melendez RN
--- NOTE | 2019-09-25 17:21 | P.PN_ITS ---
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 On 09/23/2019 patient was found down on the [place]standers [place] who activated EMS. Yesterday he underwent right hip hemiarthroplasty for displaced right femoral neck fracture with Dr. Chin. He also has a non operative right clavicular fracture. Overnight the patient was tachycardic, possibly in atrial flutter which improved with IV metoprolol as well as some Ativan as well for possible alcohol withdrawal. Unable to capture possible atrial flutter with EKG, and patient currently remains in normal sinus rhythm. Patient became increasingly more somnolent throughout the day and early this afternoon became nonverbal, which was marked change in his exam. He was given 2 mg of Ativan this morning given elevated CIWA score and continued tachycardia. His CK was elevated after surgery and he was started on fluids overnight, his troponin peaked at 0.062 without any evidence of ischemia on EKG. ABG was checked in pCO2 was not remarkable at 32. Hemoglobin was stable at 14 today, platelet count is slightly down to 170. Ultimately reordered CT head which showed a small intraparenchymal hemorrhage, he is currently pending an MRI stroke protocol, and consultation with neurosurgeon at [facility]. Exam Vital Signs (past 8 hours): - 09/25/19 10:45 09/25/19 10:49 09/25/19 11:35 Temperature 100.8 F H 99.5 F Pulse Rate 126 H 125 H Respiratory Rate 20 Blood Pressure 115/69 Pulse Oximetry 89 L 91 09/25/19 11:51 09/25/19 15:45 Temperature 99.8 F H 99.8 F H Pulse Rate 115 H Respiratory Rate 24 Blood Pressure 120/72 Pulse Oximetry 95 Oxygen Delivery Method Room Air Oxygen Flow Rate 1 Narrative Exam Narrative: GENERAL APPEARANCE: Disheveled male, mouth agape without any noted facial asymmetry. He is able to open his eyes to verbal command, but not able to follow any other commands. SKIN: Inspection of the skin reveals no rashes, ulcerations or petechiae. HEENT: Dry mucous membranes, PERRLA, eyes midline but not tracking. NECK: Supple and symmetric. There was no thyroid enlargement, and no tenderness, or masses were felt. CHEST: Normal AP diameter and normal contour without any kyphoscoliosis. LUNGS: Auscultation of the lungs revealed no wheezes, rhonchi, or rales. CARDIOVASCULAR: There was a regular rate and rhythm without any murmurs, gallops, rubs. Peripheral pulses were 2+ and symmetric. ABDOMEN: Soft and nontender with normal bowel sounds. No ascites was noted. MUSCULOSKELETAL: There was no tenderness or effusions noted. Muscle strength and tone were normal. EXTREMITIES: No cyanosis, clubbing or edema. NEUROLOGIC: Moaning, making incomprehensible sounds, opens eyes to verbal command, does withdrawal to pain in bilateral upper extremities. GCS of 9 based on this examination. Objective Labs Result Diagrams: 09/25/19 04:45 09/25/19 04:45 Labs: Laboratory Results - last 24 hr 09/24/19 09/24/19 09/25/19 20:35 20:35 04:45 WBC 12.9 H D 13.7 H RBC 4.46 L 4.44 L Hgb 13.8 13.9 Hct 41.4 41.4 MCV 93.0 93.2 MCH 31.0 31.3 MCHC 33.3 33.6 RDW 14.8 14.9 H Plt Count 179 170 Neut % (Auto) 73.0 89.0 H Lymph % (Auto) 12.9 L 4.5 L [place] % (Auto) 8.5 4.7 Eos % (Auto) 5.1 H 1.5 L Baso % (Auto) 0.5 0.3 Neut # (Auto) 9400 H 70559 H Lymph # (Auto) 1700 600 L [place] # (Auto) 1100 H 600 Eos # (Auto) 700 H 200 Baso # (Auto) 100 0 ABG pH ABG pCO2 ABG pO2 ABG HCO3 ABG Total CO2 ABG O2 Saturation ABG Base Excess FiO2 Sodium 139 Potassium TNP Chloride 108 H Carbon Dioxide 24 BUN 12 Creatinine 0.80 Estimated GFR > 60.0 BUN/Creatinine Ratio 15.0 Glucose 121 H Lactate Calcium 8.1 L Magnesium Total Creatine Kinase CK-MB (CK-2) CK-MB (CK-2) Rel Index Troponin I Urine Color Urine Appearance Urine pH Ur Specific [place] Urine Protein Urine Glucose (UA) Urine Ketones Urine Occult Blood Urine Nitrate Urine Bilirubin Urine Urobilinogen Ur Leukocyte Esterase Urine RBC Urine WBC Ur Squamous Epith Cells Urine Bacteria Ur Culture Indicated? 09/25/19 09/25/19 09/25/19 04:45 04:45 06:40 WBC RBC Hgb Hct MCV MCH MCHC RDW Plt Count Neut % (Auto) Lymph % (Auto) [place] % (Auto) Eos % (Auto) Baso % (Auto) Neut # (Auto) Lymph # (Auto) [place] # (Auto) Eos # (Auto) Baso # (Auto) ABG pH ABG pCO2 ABG pO2 ABG HCO3 ABG Total CO2 ABG O2 Saturation ABG Base Excess FiO2 Sodium 140 Potassium 4.5 Chloride 104 Carbon Dioxide 24 BUN 13 Creatinine 0.80 Estimated GFR > 60.0 BUN/Creatinine Ratio 16.3 Glucose 130 H Lactate 5.0 H* 1.5 Calcium 8.3 L Magnesium 1.8 Total Creatine Kinase 1171 H D CK-MB (CK-2) 4.48 H CK-MB (CK-2) Rel Index 0.4 L Troponin I 0.058 H Urine Color Urine Appearance Urine pH Ur Specific [place] Urine Protein Urine Glucose (UA) Urine Ketones Urine Occult Blood Urine Nitrate Urine Bilirubin Urine Urobilinogen Ur Leukocyte Esterase Urine RBC Urine WBC Ur Squamous Epith Cells Urine Bacteria Ur Culture Indicated? 09/25/19 09/25/19 09/25/19 11:05 11:05 12:05 WBC RBC Hgb Hct MCV MCH MCHC RDW Plt Count Neut % (Auto) Lymph % (Auto) [place] % (Auto) Eos % (Auto) Baso % (Auto) Neut # (Auto) Lymph # (Auto) [place] # (Auto) Eos # (Auto) Baso # (Auto) ABG pH ABG pCO2 ABG pO2 ABG HCO3 ABG Total CO2 ABG O2 Saturation ABG Base Excess FiO2 Sodium Potassium Chloride Carbon Dioxide BUN Creatinine Estimated GFR BUN/Creatinine Ratio Glucose Lactate 1.8 Calcium Magnesium Total Creatine Kinase 1139 H CK-MB (CK-2) 2.59 H D CK-MB (CK-2) Rel Index 0.2 L Troponin I 0.062 H Urine Color Yellow Urine Appearance Clear Urine pH 7.0 Ur Specific [place] 1.015 Urine Protein 1+ H Urine Glucose (UA) Negative Urine Ketones Trace H Urine Occult Blood 2+ H Urine Nitrate Negative Urine Bilirubin Negative Urine Urobilinogen 0.2 Ur Leukocyte Esterase Trace H Urine RBC 5-10/hpf H Urine WBC 5-10/hpf H Ur Squamous Epith Cells 0-1 /hpf Urine Bacteria Occasional (0-1) Ur Culture Indicated? Cult not indicated 09/25/19 09/25/19 09/25/19 13:30 15:15 15:15 WBC RBC Hgb Hct MCV MCH MCHC RDW Plt Count Neut % (Auto) Lymph % (Auto) [place] % (Auto) Eos % (Auto) Baso % (Auto) Neut # (Auto) Lymph # (Auto) [place] # (Auto) Eos # (Auto) Baso # (Auto) ABG pH 7.42 ABG pCO2 32.1 L ABG pO2 57 L ABG HCO3 21 L ABG Total CO2 22 ABG O2 Saturation 90 L ABG Base Excess -3.0 L FiO2 0.24 Sodium Potassium Chloride Carbon Dioxide BUN Creatinine Estimated GFR BUN/Creatinine Ratio Glucose Lactate 1.3 Calcium Magnesium Total Creatine Kinase 1044 H CK-MB (CK-2) 2.11 CK-MB (CK-2) Rel Index 0.2 L Troponin I 0.052 H Urine Color Urine Appearance Urine pH Ur Specific [place] Urine Protein Urine Glucose (UA) Urine Ketones Urine Occult Blood Urine Nitrate Urine Bilirubin Urine Urobilinogen Ur Leukocyte Esterase Urine RBC Urine WBC Ur Squamous Epith Cells Urine Bacteria Ur Culture Indicated? 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 On 09/23/2019 patient was found down on the [place] who activated EMS. Yesterday he underwent right hip hemiarthroplasty for displaced right femoral neck fracture with Dr. Chin. He also has a non operative right clavicular fracture. Today he developed somnolence, metabolic causes were checked but none were really found, other than a small dose of Ativan this morning. Patient underwent a repeat CT head which did show a small possible intraparenchymal bleed possibly from a subacute infarct. Currently awaiting consultation with Neuro surgery and for final read of MRI stroke protocol. 1. Intraparenchymal hemorrhage, left temporal lobe, acute, active - - New, small, curvilinear hyperdensity in the left temporal lobe adjacent to the posterior margin of chronic left temporal infarct compatible with small area of acute parenchymal hemorrhage possibly secondary to hemorrhagic transformation of underlying subacute infarct. -pending consultation with [facility] Neuro surgery and pending final read of brain MRI stroke protocol for further evaluation -transferred to ICU for frequent neuro checks, currently at q.2 hours -keep NPO for now, started on IV fluids. -possible neurology consultation depending on Neurosurgery recommendations for further evaluation of the patient's acute mental status change 2. Right femoral neck fracture (displaced), acute, present on admission, active - status post right hemiarthroplasty with Dr. Chin on 09/24/2019. -will hold postoperative Lovenox that was ordered, pending neuro surgical consultation as noted above - PT eval & treat - Holding PHONE SCREENER ASA 81 mg 3. Right nondisplaced distal clavicle fracture -appreciate orthopedic recommendations, non operative management -Orthopedic surgery recommends platform walker 4. Altered mental status, acute, active -patient with profound lethargy. Etiologies at this time include intraparench ymal hemorrhage as above, possible subacute infarct, Ativan administration this afternoon, or possibly seizures given the patient's history. -pCO2 was 32 which is unlikely the source of his altered mental status. Chemistries are further unremarkable. CT abdomen did not show any evidence of cirrhosis. ACS unlikely. UA was not indicative of infection. 5. Dehydration, acute, present on admission, active -multifactorial etiology at this time including no p.o. intake, possible rhabdo, and what appears to be poor nutritional status -continue IV fluids 6. Elevated Lactate, acute, present on admission, resolved - Received IVF in ED - Repeat lactate 1.3 (previously 2.3) 7. Seizures, chronic condition, present on admission, potentially active -continue seizure precautions - last seizure 05/2019 (reported by family), it is unclear whether the altered mental status he developed today is reflective a postictal state as discussed above - continue PHONE SCREENER regimen of lamotrigine -consider neurology consultation and possible Keppra pending further evaluation of intraparenchymal hemorrhage as noted above. 8. Tobacco dependence, chronic condition, present on admission, active - current 1 ppd smoker, nicotine patch 9. 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 H/O alcohol abuse, present on admission, stable - resume PT regimen of folic acid and thiamine 12. Elevated troponin, resolved 13. Tachyarrhythmia, patient with elevated heart rates into the 150s. Possibly atrial flutter however was unable to capture on EKG as arrhythmia had resolved. EKG shows sinus tachycardia and current telemetry reveals a sinus tachycardia 120. Code status discussed with daughter. According to the daughter patient wishes to be full code. He does not have a formal health directive. Daughter Sarina Acosta is the surrogate decision maker. VTE prophylaxis w/ SCDs for now, given intraparenchymal hemorrhage as noted abov e Dispo: Pending evaluation of intra parenchymal hemorrhage and evaluation of altered mental status as noted above Quality VTE Deep Vein Thrombosis/Pulmonary Embolism Present on Admission: No
--- NOTE | 2019-09-25 17:58 | PC.NURSE ---
Addendum entered by Dee Dee Ramires R.N. 09/25/19 22:28: Pt occasionally moaning with a small wince- settles back into sleep with HR 120s. Weighing ability to continue with neuro assessments and giving IV Morphine. Med remains on hand but holding for now. Confirmed plan with FLAME CHANNELER Addendum entered by Dee Dee Ramires R.N. 09/25/19 22:18: FLAME CHANNELER [place] at bedside answering family concerns. Pt remains FULL CODE. No neuro changes. Appears comfortable at this point- sleeping soundly, HR 122 RR in 20s. Addendum entered by Dee Dee Ramires R.N. 09/25/19 22:17: 2200 Neuro GCS 12 Addendum entered by Dee Dee Ramires R.N. 09/25/19 21:48: Pt with HR 130s, slightly moaning. CIWA assessed to be 5 for agitation. Temp 100.0 post two warm blankets, will cont to assess after blankets removed. Holding on next dose of IV Ativan until FLAME CHANNELER comes to assess and see standing neuro status. UOP 250mL since 1500. Ivette in color. Keppra has infused. Pt repositioned and turned slightly on pillow towards surgical side. Addendum entered by Dee Dee Ramires R.N. 09/25/19 21:40: Pt refusing Bipap. Placed back on 2LNC. Original Note: Note from 1710 Pt transferred to ICU at 1700 for change in neuro status and pending CT/MRI results. Suspect bleed. Pt on Q2HR Neuro checks. GCS of 12, able to follow commands, mumble slurred responses, cannot follow eyes. Will cont to monitor and wait for neuro and neuro surg reports and consults. Global deficits. Given ativan in earlier shift per report.Pt has h/o multiple infarcts. Unable to conduct CIWA assessment d/t decreased response and inability to speak clearly or lift extremities. Pt does squeeze hands upon request and move toes.
--- NOTE | 2019-09-25 18:06 | DI.ECHO.S_ITS ---
[place] [facility]---------+ [facility] +---------+ : : [address] : : : : [id number] : : : : Phone: [phone]+ Echocardiogram Report + + :Name: LINUS ALARCON Study Date: 09/26/2019 Height: 60 in : :[facility] Weight: 130 lb : : Gender: Male BSA: 1.6 m2 : :: 1945 Age: 74 yrs BP: 152/81 mmHg: :Reason For Study: TACHYCARDIA : :Ordering Physician: Ariel : :Hospitalist Performed By: Yvette Herndon : :Referring: ALESHA NAIDU : + + Interpretation Summary The patient was in sinus tachycardia with heart rates between 129-140 bpm during the exam. Left ventricular systolic function is moderate to severely reduced. The anterior wall is not well visualized and a focal wall motion abnormality is not completely excluded. Otherwise there is overall moderate global hypokinesis. The right ventricle is grossly normal size. The right ventricular systolic function is normal. The right ventricular systolic pressure is estimated to be at least 59 mmHg based on an estimated right atrial pressure of 3 mm Hg. There is no prior echocardiogram noted for this patient. The findings were communicated with Dr. Naidu. Procedure: A two-dimensional transthoracic echocardiogram with color flow and Doppler was performed. The study quality was technically adequate. There is no prior echocardiogram noted for this patient. The patient was in sinus tachycardia with heart rates between 129-140 bpm during the exam. Left Ventricle: The left ventricle is normal in size and wall thickness. The ejection fraction is estimated to be 25-30%. Left ventricular systolic function is moderate to severely reduced. There is moderate global hypokinesis of the left ventricle. Diastolic function could not be accurately assessed due to tachycardia. Right Ventricle: The right ventricle is grossly normal size. The right ventricular systolic function is normal. Atria: Both atria are normal in size. There is no Doppler evidence for an interatrial shunt. Mitral Valve: The mitral valve is normal in structure and function. There is trace mitral regurgitation. Aortic Valve: The aortic valve is trileaflet. The aortic valve opens well. There is no aortic valve stenosis. No aortic regurgitation is present. Tricuspid Valve: The tricuspid valve is normal in structure and function. There is mild tricuspid regurgitation. The right ventricular systolic pressure is estimated to be at least 59 mmHg based on an estimated right atrial pressure of 3 mm Hg. Pulmonic Valve: The pulmonic valve is not well visualized. There is a trace or physiologic amount of pulmonic regurgitation. Great Vessels: The aortic root is normal size. The ascending aorta could not be visualized. The IVC is of normal diameter and collapses greater than 50% with a sniff. This suggests a low right atrial pressure of 3 mm Hg. Pericardium/ Pleura There is no pericardial effusion. MMode/2D Measurements & Calculations LVIDd: 4.4 cm LVOT diam: 2.0 cm LVIDs: 3.9 cm Ao root diam: 3.6 cm FS: 10.1 % Ao Arch Diam (Prox Trans): 2.6 cm EPSS: 1.1 cm IVSd: 0.76 cm LVPWd: 0.66 cm LV garzon. diameter/BSA (cm/m^2): 2.8 LV sys. diameter/BSA (cm/m^2): 2.5 LA A2 area: 17.3 cm2 RA long axis: 4.3 cm LA A4 area: 19.7 cm2 RA area: 15.1 cm2 LA length (vol): 6.0 cm RA vol: 45.6 ml LA vol: 47.8 ml RA : 29.3 ml/m2 LA vol index: 30.8 ml/m2 IVC diam: 1.2 cm RVD1 (basal): 3.2 cm LVAd ap4: 21.9 cm2 TAPSE: 3.0 cm LVAs ap4: 16.6 cm2 LVLs ap4: 6.3 cm Doppler Measurements & Calculations Ao V2 max: 130.3 cm/sec LVOT Max Carlos: 118.2 cm/sec Ao V2 mean: 85.0 cm/sec LV V1 max P.6 mmHg Ao max P.8 mmHg LV V1 VTI: 21.0 cm Ao mean P.3 mmHg STEPHANIE(I,D): 2.9 cm2 Ao V2 VTI: 22.9 cm STEPHANIE(V,D): 2.9 cm2 sev ratio: 0.91 STEPHANIE indexed to BSA (cm^2/m^2): 1.8 Med Peak E' Carlos: 67.7 cm/sec TR max cralos: 351.7 cm/sec Lat Peak E' Carlos: 12.6 cm/sec TR max P.5 mmHg MV P1/2t: 36.7 msec MV P1/2t max carlos: 126.6 cm/sec SV(LVOT): 65.9 shivani MVA(P1/2t): 6.0 cm2 Electronically signed by: Jd Quiñonez M.D. on Reading Physician:09/26/2019 03:50 PM
[2019-09-25] MEDS: LORazepam 2 MG/ML INJ IV ×2 (19:40→20:33)
[2019-09-25] MEDS: levETIRAcetam 1,000 MG in SODIUM CHLORIDE 0.9% 100 ML 440 ML IV (20:34)
--- NOTE | 2019-09-25 22:39 | PM.EVENT ---
Event Note Date Patient Seen: 09/25/19 Time Patient Seen: 22:07 Event Note: Received a call from patient's RN of concern for patient being restless. Are has asked for patient evaluated at bedside. Specifically noted this evaluation to be non emergent. Patient was evaluated bedside, 20 minutes later, at 10:07 p.m. On arrival to patient's room patient was resting with eyes closed. He was calm. No restless or impulsive behavior was noted. Patient's family is at bedside and have observed the patient for the following 20 minutes. The family commented, that they felt the patient was not comfortable in his bed. Patient was repositioned in after that the restless behavior of previous concern has resolved. Patient is noted to moan /ground on occasion, but this is not continuous. His pupils were equal and reactive, but sluggish (left seemed to be more than the right) No posturing noted MRI still pending Received call from Radiology, Dr. Gomez Rodríguez 09/25/19 3221 In regard to MRI done earlier in the day, notes tiny diffusion restriction, acute infarction in the left temporal lobe. Hemorrhage present (as noted in CT earlier) does not look bigger with recommendations for follow-up CT in am or with any overt neurological changes overnight. - continue close monitoring of neuro status overnight, q.2 hours neuro checks - plan on repeating CT of head in a.m.
[2019-09-26] VITALS (14 sets, daily range): BP systolic 121–164; BP diastolic 66–94; PULSE 101–128; RESP 18–32; TEMP 36.3–36.9; O2SAT 83–100; BMI 25.4
[2019-09-26] MEDS: MAGNESIUM SULFATE 2 GM, FOLIC ACID 1 MG, THIAMINE 100 MG, MULTIVITAMIN 10 ML in SODIUM ... IV (00:46)
[2019-09-26] MEDS: MORPHINE 2 MG/ML INJ IV ×6 (02:44→23:07)
[2019-09-26 05:35] LABS: Add Manual Diff / Slide Review NO; Basophils Absolute Auto 100 /uL (0-100); Basophils Percent Auto 0.4 % (0-2); Eosinophils Absolute Auto 100 /uL (0-450); Eosinophils Percent Auto 0.3 % (2-4); Hematocrit 33.6 % (41-53); Hemoglobin 11.2 g/dL (13.5-17.5); Lymphocytes Absolute Auto 700 /uL (1100-4500); Lymphocytes Percent Auto 4.1 % (25-40); Mean Corpuscular HGB Conc 33.4 % (30-36); Mean Corpuscular Hemoglobin 31.1 PG (26-34); Mean Corpuscular Volume 93.2 fL (80-100); Monocytes Absolute Auto 1300 /uL (0-900); Monocytes Percent Auto 7.2 % (3-14); Neutrophils Absolute Auto 15200 /uL (1500-7000); Platelet Count 138 X10^3/uL (150-400); Red Blood Cell Count 3.61 X10^6/uL (4.5-5.9); Red Cell Distribution Width 14.8 % (11.6-14.8); White Blood Cell Count 17.3 X10^3/uL (4.5-11.0)
[2019-09-26 05:49] LABS: Alanine Aminotransferase 9 IU/L (<50); Albumin 2.9 g/dL (3.5-5.0); Albumin Globulin Ratio 0.9 (1.0-2.8); Alkaline Phosphatase 53 U/L (38-126); Aspartate Aminotransferase 29 IU/L (17-59); Bilirubin Total 0.6 mg/dL (0.2-1.3); Bilirubin Unconjugated 0.5 mg/dL (0.0-1.1); Blood Urea Nitrogen 14 mg/dL (9-20); Calcium 7.7 mg/dL (8.4-10.2); Carbon Dioxide 23 mmol/L (22-32); Chloride 109 mmol/L (98-107); Estimated Glomerular Filt Rate > 60.0 mL/min (>60); Globulin 3.2 g/dL (1.7-4.1); Glucose 107 mg/dL (80-110); HEMOLYSIS < 15 (0-50); Magnesium 2.3 mg/dL (1.6-2.3); Phosphorous 1.8 mg/dL (2.3-3.7); Potassium 3.7 mmol/L (3.4-5.1); Sodium 138 mmol/L (137-145); Total Protein 6.1 g/dL (6.3-8.2)
--- NOTE | 2019-09-26 06:20 | PC.NURSE ---
Tour Conductor Note-Patient remains non-verbal, moans intermittently, attempts to open eyes, Lt eye stays closed, Rt eye opens, and patient will turn head toward voice. Has small purposeful movements with BUEs, especially during oral sx. GCS 10-12. Medicated with 2mg IV morphine x1 per prn, no Ativan overnight. Remains ST 120s, RR 20s-30s, SpO2 >94% on 3L NC, lung sounds coarse anterior, upper airway congestion with moist cough. Rt anterior thigh aquacel CDI, abductor pillow in place, rubs Lt thigh and moves LLE when agitated. Banana bag infusing.
--- NOTE | 2019-09-26 08:18 | DI.CT.S_ITS ---
PROCEDURE: CT HEAD/BRAIN WO CON INDICATIONS: concern for expanding bleed TECHNIQUE: Noncontrast 4.5 mm thick angled axial sections acquired from the foramen magnum to the vertex, with coronal and sagittal reformats. For radiation dose reduction, the following was used: automated exposure control, adjustment of mA and/or kV according to patient size. COMPARISON: [facility], MR, MR STROKE, 09/25/2019, 16:27. [facility], CT, CT HEAD/BRAIN WO CON, 09/25/2019, 14:13. FINDINGS: Image quality: Excellent. CSF spaces: Basal cisterns are patent. No extra-axial fluid collections. The ventricles are symmetric in size and shape. Brain: Again noted are multiple chronic bilateral cortical infarcts, including a moderate left temporal infarct, a moderate right posterior temporal infarct, a small right occipital infarct, and a small anterior left frontal infarct. At the posterior margin of the chronic left temporal infarct is an area of cortical and antunez-white junction region hemorrhage, corresponding to a small area of acute infarct at the posterior margin of the chronic infarct. The amount of hemorrhage is not significantly changed from the prior study. There is no mass effect upon the adjacent lateral ventricle. There is cerebral volume loss for age, with resultant ventricular and sulcal prominence. There are periventricular and deep white matter chronic small vessel ischemic changes. There is intracranial internal carotid artery atherosclerosis. Skull and face: Calvarium and visualized facial bones appear intact, without suspicious lesions. Sinuses: Visualized sinuses and mastoids are clear. IMPRESSION: 1. Small acute/subacute hemorrhagic left temporal infarct at the posterior margin of the moderate size chronic left temporal infarct. No significant change in the amount of hemorrhage present. No mass effect. 2. Multiple bilateral chronic infarcts. Dictated by: Peter Sweeney M.D. on 09/26/2019 at 8:29 Approved by: Peter Sweeney M.D. on 09/26/2019 at 8:34
[2019-09-26] MEDS: LIDOCAINE PATCH 1 EACH ADH..PATCH 2 EACH TOP (09:09)
[2019-09-26] MEDS: levETIRAcetam 1,000 MG in SODIUM CHLORIDE 0.9% 100 ML 440 ML IV ×2 (09:09→21:05)
[2019-09-26] MEDS: NICOTINE 21 MG PATCH TOP (09:09)
--- NOTE | 2019-09-26 09:15 | P.PN_ITS ---
Subjective Subjective Date Patient Seen: 09/26/19 Time Patient Seen: 08:05 Interval history: Postop day 2 right cemented hemiarthroplasty Nonoperative treatment nondisplaced right distal clavicle fracture Patient had an arrhythmia overnight than was an sinus tachycardia most of the day has been monitored and treated by admitting team, hospitalists. Per report and events became more somnolent yesterday evening. CT scan possible small intracranial hemorrhage. There is a neurosurgery consult. Patient is leaving for repeat head CT as a around this morning. Patient's mental status has been challenging throughout hospitalization and basically unable to get any sense of a motor sensory exam. Continues to sat relatively well on minimal supplemental oxygen. Does have baseline COPD. Exam Vital Signs (past 8 hours): - 09/26/19 02:00 09/26/19 04:00 09/26/19 05:00 Temperature 98.4 F Pulse Rate 120 H 128 H 126 H Respiratory Rate 26 H 32 H 26 H Blood Pressure 121/66 152/81 H 131/73 Pulse Oximetry 97 96 96 09/26/19 07:39 Temperature 98.2 F Pulse Rate Respiratory Rate Blood Pressure Pulse Oximetry 92 Oxygen Delivery Method Nasal Cannula Oxygen Flow Rate 3 Narrative Exam Narrative: General exam: Lying in bed. On 3 L oxygen nasal cannula. Not able to cooperate with exam. Dressing in place. The headed to repeat head CT. Rest of exam deferred Objective Labs Result Diagrams: 09/26/19 05:15 09/26/19 05:15 Labs: Laboratory Results - last 24 hr 09/25/19 09/25/19 09/25/19 11:05 11:05 12:05 WBC RBC Hgb Hct MCV MCH MCHC RDW Plt Count Neut % (Auto) Lymph % (Auto) [place] % (Auto) Eos % (Auto) Baso % (Auto) Neut # (Auto) Lymph # (Auto) [place] # (Auto) Eos # (Auto) Baso # (Auto) ABG pH ABG pCO2 ABG pO2 ABG HCO3 ABG Total CO2 ABG O2 Saturation ABG Base Excess FiO2 Sodium Potassium Chloride Carbon Dioxide BUN Creatinine Estimated GFR BUN/Creatinine Ratio Glucose Lactate 1.8 Calcium Phosphorus Magnesium Total Bilirubin Conjugated Bilirubin Unconjugated Bilirubin AST ALT Alkaline Phosphatase Total Creatine Kinase 1139 H CK-MB (CK-2) 2.59 H D CK-MB (CK-2) Rel Index 0.2 L Troponin I 0.062 H Total Protein Albumin Globulin Albumin/Globulin Ratio Urine Color Yellow Urine Appearance Clear Urine pH 7.0 Ur Specific [place] 1.015 Urine Protein 1+ H Urine Glucose (UA) Negative Urine Ketones Trace H Urine Occult Blood 2+ H Urine Nitrate Negative Urine Bilirubin Negative Urine Urobilinogen 0.2 Ur Leukocyte Esterase Trace H Urine RBC 5-10/hpf H Urine WBC 5-10/hpf H Ur Squamous Epith Cells 0-1 /hpf Urine Bacteria Occasional (0-1) Ur Culture Indicated? Cult not indicated 09/25/19 09/25/19 09/25/19 13:30 15:15 15:15 WBC RBC Hgb Hct MCV MCH MCHC RDW Plt Count Neut % (Auto) Lymph % (Auto) [place] % (Auto) Eos % (Auto) Baso % (Auto) Neut # (Auto) Lymph # (Auto) [place] # (Auto) Eos # (Auto) Baso # (Auto) ABG pH 7.42 ABG pCO2 32.1 L ABG pO2 57 L ABG HCO3 21 L ABG Total CO2 22 ABG O2 Saturation 90 L ABG Base Excess -3.0 L FiO2 0.24 Sodium Potassium Chloride Carbon Dioxide BUN Creatinine Estimated GFR BUN/Creatinine Ratio Glucose Lactate 1.3 Calcium Phosphorus Magnesium Total Bilirubin Conjugated Bilirubin Unconjugated Bilirubin AST ALT Alkaline Phosphatase Total Creatine Kinase 1044 H CK-MB (CK-2) 2.11 CK-MB (CK-2) Rel Index 0.2 L Troponin I 0.052 H Total Protein Albumin Globulin Albumin/Globulin Ratio Urine Color Urine Appearance Urine pH Ur Specific [place] Urine Protein Urine Glucose (UA) Urine Ketones Urine Occult Blood Urine Nitrate Urine Bilirubin Urine Urobilinogen Ur Leukocyte Esterase Urine RBC Urine WBC Ur Squamous Epith Cells Urine Bacteria Ur Culture Indicated? 09/26/19 09/26/19 05:15 05:15 WBC 17.3 H RBC 3.61 L Hgb 11.2 L Hct 33.6 L MCV 93.2 MCH 31.1 MCHC 33.4 RDW 14.8 Plt Count 138 L Neut % (Auto) 88.0 H Lymph % (Auto) 4.1 L [place] % (Auto) 7.2 Eos % (Auto) 0.3 L Baso % (Auto) 0.4 Neut # (Auto) 96412 H Lymph # (Auto) 700 L [place] # (Auto) 1300 H Eos # (Auto) 100 Baso # (Auto) 100 ABG pH ABG pCO2 ABG pO2 ABG HCO3 ABG Total CO2 ABG O2 Saturation ABG Base Excess FiO2 Sodium 138 Potassium 3.7 Chloride 109 H Carbon Dioxide 23 BUN 14 Creatinine 0.70 Estimated GFR > 60.0 BUN/Creatinine Ratio 20.0 Glucose 107 Lactate Calcium 7.7 L Phosphorus 1.8 L Magnesium 2.3 Total Bilirubin 0.6 Conjugated Bilirubin 0.0 Unconjugated Bilirubin 0.5 AST 29 ALT 9 Alkaline Phosphatase 53 Total Creatine Kinase CK-MB (CK-2) CK-MB (CK-2) Rel Index Troponin I Total Protein 6.1 L Albumin 2.9 L Globulin 3.2 Albumin/Globulin Ratio 0.9 L Urine Color Urine Appearance Urine pH Ur Specific [place] Urine Protein Urine Glucose (UA) Urine Ketones Urine Occult Blood Urine Nitrate Urine Bilirubin Urine Urobilinogen Ur Leukocyte Esterase Urine RBC Urine WBC Ur Squamous Epith Cells Urine Bacteria Ur Culture Indicated? Assessment & Plan Post-op Postoperative Procedures: Procedures Operation Date: 09/24/19 16:45 Actual Procedures Side Surgeon p Hip Hemiarthroplasty Right Minal Gallego MD Postop day 2 right hip cemented hemiarthroplasty. H&H stable. Weightbear as tolerated. Abduction pillow while in bed for 1st few days until posterior hip precautions can be taught. SCDs for DVT prophylaxis. Lovenox was discontinued at this time regarding the intracranial hemorrhage would defer to Neurosurgery recommendations. Patient has not been really hypoxic and has been doing quite well and minimal oxygen but for persistence sinus tachycardia if no other ex planation found would also consider lung CTA to rule out pulmonary embolism if suspected. Discussed same with hospitalist team. Nondisplaced right distal clavicle fracture. Non operative treatment. Recommend platform walker once patient is able to get up out of bed for 4-6 weeks as needed for ambulation Medical management for primary Follow-up [facility] 10-14 days postop for repeat x-rays right hip, right clavicle, and staple removal right hip. Continue posterior hip pr ecautions x6 weeks. Pharmacologic DVT prophylaxis when determined OK by primary team/neurosurgery. Continue SCDs for now Quality VTE Deep Vein Thrombosis/Pulmonary Embolism Present on Admission: No
--- NOTE | 2019-09-26 09:37 | PC.NURSE ---
0730- Bedside report from [facility] RN. Pt opens eyes to verbal stimuli but does not track voice or follow commands. Only moans with or without stimulus. He does withdraw from touch. His pupils are 3mm bilaterally and extremely sluggish to react to light. His left eye is mostly closed A slow horizontal nystagmus is noted bilaterally. Pt is observed to move his upper arms seemingly purposefully (he is removing his gown, O2 tubing, and monitoring devices). Provided reorientation and explained plan of care. Lines traced and hidden/secured. Placed O2 in mouth at 2LPM NC as SPO2 was noted to be 83% on RA after pt removed it. Pt is tachypneic with RR 26-28 and mouth/abd breathing. Lung baum are course. HR is tachycardic into 120s. BP WNL. Orders received for head CT. Administered morphine prior to transport for facial grimacing, moaning, and difficult to console. Pt was escorted to CT with O2 and monitoring by this RN and brought back in same condition. Reviewed neuro and physical assessment with Dr. Miramontes on rounds.
--- NOTE | 2019-09-26 10:33 | PT-IP ANOTE ---
Attempted to eval pt this morning but pt is not appropriate for PT according to JEWEL Christianson at this point d/t AMS. She stated pt was not able to follow command as well. Per EMR, pt will have a neurosurgery consult.
--- NOTE | 2019-09-26 10:54 | DI.CT.S_ITS ---
PROCEDURE: CT ANGIO CHEST PE PROTOCOL INDICATIONS: r/o PE, tachycardia, tachypnea, s/p recent hip surgery TECHNIQUE: After the administration of intravenous contrast, 2 mm thick sections acquired from the pulmonary apices to the posterior costophrenic angles. 3-dimensional maximum intensity projection (MIP) coronal and sagittal reformats were then acquired through the thorax. For radiation dose reduction, the following was used: automated exposure control, adjustment of mA and/or kV according to patient size. COMPARISON: [facility], CT, CT CHEST ABD PEL W CON, 09/23/2019, 21:18. FINDINGS: Image quality: Excellent. Pulmonary arteries: Pulmonary arteries are normal in size, and demonstrate no intraluminal filling defects to suggest central pulmonary embolism. Lungs and pleura: Advanced centrilobular emphysema. Focal right basilar pneumonia. Minimal bilateral pleural effusions. Minimal bibasilar atelectasis. Mediastinum: Heart size is normal, without pericardial effusion. No mediastinal or hilar adenopathy. Thoracic aorta is normal in caliber and enhancement. Esophagus is normal in caliber, without hiatal hernia. Bones and chest wall: No suspicious bony lesions. Ribs and thoracic spine appear intact throughout. Thyroid gland is unremarkable. No axillary or supraclavicular adenopathy. Abdomen: Visualized upper abdominal solid organs appear normal in the early arterial phase of enhancement. IMPRESSION: 1. Severe centrilobular emphysema 2. No evidence pulmonary emboli. 3. Interval development of right basilar pneumonia, minimal bilateral pleural effusions, and minimal left basilar atelectasis. Dictated by: Peter Sweeney M.D. on 09/26/2019 at 10:56 Approved by: Peter Sweeney M.D. on 09/26/2019 at 11:00
[2019-09-26] MEDS: SODIUM CHLORIDE 0.9% 1,000 ML 150 ML IV (11:07)
[2019-09-26] MEDS: KETOROLAC 15 MG/ML VIAL IV ×2 (12:05→17:33)
[2019-09-26] MEDS: LORazepam 2 MG/ML INJ 0.5 MG IV (12:06)
[2019-09-26] MEDS: AMPICILLIN/SULBACTAM 3 GM 3 GM in SODIUM CHLORIDE 0.9% 100 ML IV ×2 (12:06→17:33)
--- NOTE | 2019-09-26 13:07 | PT-IP ANOTE ---
Reattempt to eval pt at 1pm but pt is still not appropriate d/t difficulty following command and AMS according to JEWEL Christianson. Will d/c PT order at this point until pt is medically stable. Will attempt PT again once pt is able to follow command and obtain new information.
--- NOTE | 2019-09-26 13:46 | CM.DPC ---
DCP Cont: Per MD, pt continues to be mostly nonresponsive and far below his baseline but had positive MRI for stroke and will consult Neurology to determine if hospital transfer required for higher level of care or if his current obtunded behavior is ETOH withdrawal vs medication induced. Per PT/OT, have not been able to work much with pt due to his non-responsiveness. PRECIOUS recieved a call from pt's assigned HCS VIKRAM Ricks ([phone]) who confirms that she was in the process of assessing pt for in-home support and it's pending for final documentation but now that pt is in the hospital and doing so poorly then she will need to determine if he will qualify for even higher level of care pending pt's progress at the hospital. PRECIOUS faxed requested clinicals to review to [phone]. PRECIOUS called [facility] admissions and plan is to call pt's Dtr to discuss plan of what would be the discharge plan for pt from SNF rehab if pt does not significantly improve and needs LTC. PRECIOUS called [facility] and had to refax referral and currently they will not have any open male beds until next week. Plan: PRECIOUS to follow closely after Neurologist Consult to determine if hospital transfer needed and then to determine if pt will be able to begin to work with PT/OT and SNF placement. FIDENCIO Johnson
--- NOTE | 2019-09-26 15:24 | P.PN_ITS ---
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 On 09/23/2019 patient was found down on the [place]stand[place] who activated EMS. He is POD #2 after he underwent right hip hemiarthroplasty for displaced right femoral neck fracture with Dr. Gallego. Yesterday he became much more lethargic and underwent a CT head which showed a possible left temporal lobe intraparenchymal hemorrhage which was possibly secondary to an acute stroke. He underwent an MR stroke later that evening that showed a possible acute/subacute infarction near the area of the hemorrhage. He underwent a repeat head CT this morning which showed a stable appearing lesion. Yesterday I did discuss the case with neurosurgeon on-call at [facility] in [place], who stated that the lesions appeared more chronic in nature and that the bleed, if this was one, is small and unlikely to cause any mass effect given severe encephalomalacia and large prior strokes. He remained tachycardic today, and was desaturating so a CTA PE protocol was performed, which did not show a pulmonary embolism, but did show small bilateral pleural effusions as well as a right basilar infiltrate/pneumonia. Discussed the case with neurology today (Dr. Flanagan), also at [facility] who had access to a previous MRI which showed a similar finding with possible calcification of an old infarct. Given patient's waxing and waning mental status, neurologist today did believe that this most likely represents a toxic metabolic encephalopathy or hospital delirium. She recommended limiting opiate pain medicines and benzodiazepines as much as possible, with the balance of treating for potential alcohol withdrawal. She did not believe this sounded like seizures but agreed with initiation of Keppra at this time. If there is no improvement after treatment of possible underlying toxic metabolic encephalopathy, considerations for further neurol ogical evaluation and EEG could be entertained. Family was updated on the events as noted above this afternoon, and goals of care were again discussed. Daughter stated that the patient would never wanted a feeding tube, but at this point she still wants him to be full code. I stated that the longer we go without improvement the less likely he is to recover in any meaningful way, and she was understanding of this. She also told me that the patient would not have wanted to end up in a care home for the rest of his life. I also just received a call from the senior software engineering manager stating that the patient's ejection fraction is 25%, and that it appears fairly acute, but there is severe hypokinesis. Exam Vital Signs (past 8 hours): - 09/26/19 07:39 09/26/19 09:00 09/26/19 10:00 Temperature 98.2 F 97.8 F Pulse Rate 127 H 125 H Respiratory Rate 26 H 28 H Blood Pressure 158/90 H 155/94 H Pulse Oximetry 92 99 98 09/26/19 10:23 09/26/19 10:24 09/26/19 11:00 Temperature Pulse Rate 123 H Respiratory Rate Blood Pressure Pulse Oximetry 98 83 L 99 09/26/19 12:50 09/26/19 13:00 Temperature 97.5 F L Pulse Rate 128 H Respiratory Rate 25 H Blood Pressure 164/92 H Pulse Oximetry 98 Oxygen Delivery Method Nasal Cannula Oxygen Flow Rate 2 Narrative Exam Narrative: GENERAL APPEARANCE: Disheveled male, mouth agape without any noted facial asymmetry. He is able to open his eyes to verbal command, he follows commands intermittently (mainly will squeeze hands). SKIN: Inspection of the skin reveals no rashes, ulcerations or petechiae. HEENT: Dry mucous membranes, PERRLA, eyes midline but not tracking. Horizontal nystagmus as noted below. NECK: Supple and symmetric. There was no thyroid enlargement, and no tenderness, or masses were felt. CHEST: Normal AP diameter and normal contour without any kyphoscoliosis. LUNGS: Auscultation of the lungs revealed no wheezes, rhonchi, or rales. CARDIOVASCULAR: There was a tachycardic rate with regular rhythm without any murmurs, gallops, rubs. Peripheral pulses were 2+ and symmetric. ABDOMEN: Soft and nontender with normal bowel sounds. No ascites was noted. MUSCULOSKELETAL: There was no tenderness or effusions noted. Muscle strength and tone were normal. EXTREMITIES: No cyanosis, clubbing or edema. NEUROLOGIC: Moaning, making incomprehensible sounds at most times, opens eyes to verbal command usually, does withdrawal to pain in bilateral upper extremities. He has a slow horizontal nystagmus this morning but pupils remain equally round and reactive. Objective Labs Result Diagrams: 09/26/19 05:15 09/26/19 05:15 Labs: Laboratory Results - last 24 hr 09/25/19 09/25/19 09/26/19 15:15 15:15 05:15 WBC 17.3 H RBC 3.61 L Hgb 11.2 L Hct 33.6 L MCV 93.2 MCH 31.1 MCHC 33.4 RDW 14.8 Plt Count 138 L Neut % (Auto) 88.0 H Lymph % (Auto) 4.1 L Rains % (Auto) 7.2 Eos % (Auto) 0.3 L Baso % (Auto) 0.4 Neut # (Auto) 30206 H Lymph # (Auto) 700 L Rains # (Auto) 1300 H Eos # (Auto) 100 Baso # (Auto) 100 Sodium Potassium Chloride Carbon Dioxide BUN Creatinine Estimated GFR BUN/Creatinine Ratio Glucose Lactate 1.3 Calcium Phosphorus Magnesium Total Bilirubin Conjugated Bilirubin Unconjugated Bilirubin AST ALT Alkaline Phosphatase Total Creatine Kinase 1044 H CK-MB (CK-2) 2.11 CK-MB (CK-2) Rel Index 0.2 L Troponin I 0.052 H Total Protein Albumin Globulin Albumin/Globulin Ratio 09/26/19 05:15 WBC RBC Hgb Hct MCV MCH MCHC RDW Plt Count Neut % (Auto) Lymph % (Auto) Rains % (Auto) Eos % (Auto) Baso % (Auto) Neut # (Auto) Lymph # (Auto) Rains # (Auto) Eos # (Auto) Baso # (Auto) Sodium 138 Potassium 3.7 Chloride 109 H Carbon Dioxide 23 BUN 14 Creatinine 0.70 Estimated GFR > 60.0 BUN/Creatinine Ratio 20.0 Glucose 107 Lactate Calcium 7.7 L Phosphorus 1.8 L Magnesium 2.3 Total Bilirubin 0.6 Conjugated Bilirubin 0.0 Unconjugated Bilirubin 0.5 AST 29 ALT 9 Alkaline Phosphatase 53 Total Creatine Kinase CK-MB (CK-2) CK-MB (CK-2) Rel Index Troponin I Total Protein 6.1 L Albumin 2.9 L Globulin 3.2 Albumin/Globulin Ratio 0.9 L Assessment & Plan Assessment & Plan narrative: The patient is a 74-year-old male with PMH of alcohol abuse, 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 On 09/23/2019 patient was found down on the [place]ers [place] who activated EMS. He is POD#2 s/p right hip hemiarthroplasty for displaced right femoral neck fracture with Dr. Gallgeo. He also has a non operative right clavicular fracture. Since his procedure he has had an extremely complex course, including an intraparenchymal hemorrhage, waxing and waning mental status, respiratory failure, and a newly found ejection fraction of 25%. It is unknown how acute or chronic many of these issues are at this time. 1. Intraparenchymal hemorrhage, left temporal lobe, acute, stable- - New, small, curvilinear hyperdensity in the left temporal lobe adjacent to the posterior margin of chronic left temporal infarct compatible with small area of acute parenchymal hemorrhage possibly secondary to hemorrhagic transformation of underlying subacute infarct. MR stroke later that evening that showed a possible acute/subacute infarction near the area of the hemorrhage. -repeat CT scan confirmed stability of possible hemorrhage. -transferreded to ICU for frequent neuro checks, can now back off to Q shift neurochecks and can be listed for the regular floor. -remains NPO, however will have to start feeding tube through an NG. -case was discussed with neuro surgery at [facility] in [place] who were able to review the patient's images, they did not believe that there was any acute infarct and that many of his lesions appear to be old. There can be bleeding from old infarctions as well, and this remains the most likely possibility at this time. However, neurosurgery also was not completely convinced that this was an actual hemorrhage, but may be old calcification as well. This was reiterated as well by Neurology who had access to a previous MRI done on this patient which showed similar findings. 2. Toxic metabolic encephalopathy, acute -patient with profound lethargy. Etiologies at this time include intraparenchymal hemorrhage as above, possible subacute infarct (however these are now less likely), toxic metabolic encephalopathy from medications (opiates and benzodiazepines) or pneumonia, hospital delirium, and progression of chronic disease. -pCO2 was 32 which is unlikely the source of his altered mental status. Chemistries are further unremarkable. CT abdomen did not show any evidence of cirrhosis. ACS unlikely. UA was not indicative of infection. -Discussed the case with neurology today (Dr. Flanagan), also at [facility] who had access to a previous MRI which showed a similar finding with possible calcification of an old infarct. Given patient's waxing and waning mental status, neurologist today did believe that this most likely represents a toxic metabolic encephalopathy or hospital delirium. She recommended limiting opiate pain medicines and benzodiazepines as much as possible, with the balance of treating for potential alcohol withdrawal vs pain control. She did not believe this sounded like seizures but agreed with initiation of Keppra at this time. If there is no improvement after treatment of possible underlying toxic metabolic encephalopathy, considerations for further neurological evaluation and EEG could be entertained. -continue treatment of pneumonia as noted below. 3. Right femoral neck fracture (displaced), acute, present on admission, active - status post right hemiarthroplasty with Dr. Chin on 09/24/2019. -will hold postoperative Lovenox that was ordered, pending neuro surgical consultation as noted above - PT eval & treat - Holding DIVISION ORDER ANALYST ASA 81 mg 4. Right nondisplaced distal clavicle fracture -appreciate orthopedic recommendations, non operative management -Orthopedic surgery recommends platform walker 5. Heart failure with reduced ejection fraction, unknown acuity - TTE: Left ventricular systolic function is moderate to severely reduced (25). The anterior wall is not well visualized and a focal wall motion abnormality is not completely excluded. Otherwise there is overall moderate global hypokinesis.The right ventricle is grossly normal size. The right ventricular systolic function is normal. The right ventricular systolic pressure is dionna mated to be at least 59 mmHg based on an estimated right atrial pressure of 3 mm Hg. -will diurese slightly with 40 mg of IV Lasix daily given bilateral pleural effusions on CTA and elevated right-sided pressures. There is no evidence of volume overload on exam. -possibly this is related to his tachyarrhythmia that happened immediately after surgery which is now improved. -heart rate has improved with pain control but will start beta-jl therapy once NG tube is in place. Will also add an FILI-inhibitor when able. -cardiology had called to consider LHC, however given possible intraparenchymal hemorrhage and patient's overall clinical condition they did not deem it necessary at this time. 6. Acute hypoxemic respiratory failure secondary to Right basilar pneumonia, acute -patient increasingly tachycardic and today had desaturations into the mid 80s and became quite tachypneic. CTA chest was performed which did not show any evidence of PE, but did show a right basilar pneumonia and small bilateral pulmonary effusions. The pleural effusions are likely due to the patient's reduced ejection fraction as noted above. -possibly secondary to aspiration. This could have been present both before surgery and after surgery, and will not be able to clinically determine this. White blood cell count has trended up to 17.3 today -continue Unasyn 3 g q.6 hours for a treatment total of 7 days. Collect sputum culture if able. -continue Lasix as noted above -blood cultures are pending 7. Dehydration, acute, present on admission, active -multifactorial etiology at this time including no p.o. intake, possible rhabdo, and what appears to be poor nutritional status -continue IV fluids, can discontinue once tube feeds have been initiated 8. Elevated Lactate, acute, present on admission, resolved - Received IVF in ED, could be potentially elevated in the setting of a seizure, however this will likely be unable to be determined exactly. - Repeat lactate 1.3 7. Seizures, chronic condition, present on admission, potentially active -continue seizure precautions - last seizure 05/2019 (reported by family), it is unclear whether the altered mental status he developed today is reflective a postictal state as discussed above - continue DIVISION ORDER ANALYST regimen of lamotrigine -patient was started on Keppra 1000 mg b.i.d. continue this for a period of 48 hours and then decrease to 500 mg b.i.d. -if no resolution of mental status after evaluating and treating possible causes of toxic/metabolic encephalopathy as noted above, consider transfer for neurological evaluation and EEG. 8. Tobacco dependence, chronic condition, present on admission, active - current 1 ppd smoker, nicotine patch 9. Centrilobular emphysema, chronic condition, present on admission, stable - no active pulmonary decompensation, this may be the source of his elevated right-sided pressures. 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 11. H/O alcohol abuse, present on admission, stable - resume PT regimen of folic acid and thiamine, daughter reported giving his fa ther a 6 pack of beer on 09/21/2019. He was otherwise unable to obtain other alcohol that she is aware of. This is likely the time of his last drinking. 12. Type 2 myocardial infarction, resolved -occurred during an episode of tachycardia, which was potentially atrial flutter, however this was not able to be captured on EKG as his rate had improved into the 120s and this showed sinus tachycardia. He did have an elevation in his troponins to 0.062, which down trended. This was likely elevated in the setting of his potential tachyarrhythmia. He was further potentially complaining of chest pain at the time but given his mental status it was unclear. FEN/GI: Currently NPO, consult dietary for tube feeding recommendations and NG tube placement sometime today. Code status discussed with daughter. According to the daughter patient wishes to be full code. He does not have a formal health directive. Daughter Sarina Acosta is the surrogate decision maker. She did state that the patient would not want a permanent feeding tube, and would not want to be in a care home for the rest of his life. VTE prophylaxis w/ SCDs for now, given intraparenchymal hemorrhage as noted above. Can likely resume tomorrow given the bleeding is stable on imaging today. Dispo: Patient's current status remains guarded, however with stable bleeding he can be listed for the regular floor today, he does not need as frequent neurological checks. Quality VTE Deep Vein Thrombosis/Pulmonary Embolism Present on Admission: No
--- NOTE | 2019-09-26 16:38 | DIET.PN ---
Dietary Progress Note Assessment: 74y M referred to nutrition for Urgent consult r/t tube feeding reccs Please start pt on Glucerna 1.2 continuous via NG @ 15mL/hr for first 6hr per ICU protocol and titrate up per reccs below: Enteral Nutrition Recommendations Glucerna (1.2 Long) at 55 mL/hr - Start at 15 mL/hr, titrate by 10 mL/hr every 6 hours to goal - 150 mL free water flushes every 4 hours (37.5 mL/hr) - Provides 1584 kcal (27 kcal/kg) and 79 gm (1.3 gm/kg) of protein - Enteral feed and flushes provide 1969 mL (33 mL/kg) of free water Patient Metrics Height: 60 in [place] body weight: 50 kg (18% above IBW) Actual body weight: 59 kg BMI: 25.5 kg/m2 (NHLBI status - Overweight) Nutritional dosing weight: 59 kg Nutritional Monitor Parameters - Elevate head of bed 30-45 degrees while feeding - Check gastric residuals every 4 hours when initiating feeding. May check every 6-8 hours once goal rate is achieved - Hold gastric feeds for residuals more than 500 mL. Avoid holding feeds for residuals < 500 mL without other signs of intolerance -Daily weights Monitoring/Evaluations: TF tolerance
--- NOTE | 2019-09-26 16:54 | PC.NURSE ---
Addendum entered by Dee Dee Ramires R.N. 09/26/19 23:08: Pt placed back on 2LNC for sats>90%. Discussed with COLLECTIONS OFFICER- will not place NGT right now if we are not starting tube feeds, plan to place in am, will address tube feeds and start time when Dr Miramontes present. Addendum entered by Dee Dee Ramires R.N. 09/26/19 22:47: Pt sleeping soundly, turned 2LNC off to see how pt tolerated. Maintaining sats at 95% on RA. Addendum entered by Dee Dee Ramires R.N. 09/26/19 22:05: Pt continues to sleep soundly with no agitation. Per Dr Miramontes, wait on placement of NGT if pt is comfortable and sleeping tonight. Plan to have tube feeds started by tomorrow per Dr Miramontes. Dietary consult in now. Supplies in room. Addendum entered by Dee Dee Ramires R.N. 09/26/19 19:16: Add to 19:00 note: GCS 11 Addendum entered by Dee Dee Ramires R.N. 09/26/19 19:14: 1900: Pt opening eyes on his own, unable to speak any clear words, but attempting to. Moaning and appears uncomfortable- given 2mg IV Morphine. Repositioned and turned to right side with pillow under buttocks. Explained POC to patient. Prior to IV Morphine- Pt opened eyes to voice, followed some commands by moving toes when asked to, unable to squeeze my hands. Original Note: Pt with PERRLA 4mm- sluggish. Not opening eyes to voice, only to movement or pain from movement. No verbal response. Pt agitated earlier today and comfortable now with pain meds given during prior shift. Will cont to assess when more awake, MD harris wtih letting pt sleep for now. Questionable if patient has some purposeful movement, but not following commands. Satting 96% on 2LNC placed orally d/t mouth breathing. No cough hear thus far this shift. Pt 92-102 ST on tele today. No ectopy. No edema. +2 pulses to all extremities. BP 138/81. 18g LFA saline locked. 20g LAC with NS@150mL/hr. +BSx4. NPO. Plan for NGT placement this evening and TUBE FEEDS to start once dietitan consults.
[2019-09-26] MEDS: FUROSEMIDE 40 MG/4 ML VIAL IV (17:33)
[2019-09-27] VITALS (9 sets, daily range): BP systolic 149–177; BP diastolic 74–104; PULSE 102–129; RESP 22–33; TEMP 36.2–37.1; O2SAT 90–98
[2019-09-27] MEDS: KETOROLAC 15 MG/ML VIAL IV ×3 (01:05→14:03)
[2019-09-27] MEDS: AMPICILLIN/SULBACTAM 3 GM 3 GM in SODIUM CHLORIDE 0.9% 100 ML IV ×4 (01:37→18:02)
[2019-09-27] MEDS: LORazepam 2 MG/ML INJ IV ×4 (02:04→21:24)
[2019-09-27] MEDS: MORPHINE 2 MG/ML INJ IV ×5 (02:51→21:24)
[2019-09-27] MEDS: SODIUM CHLORIDE 0.9% 1,000 ML 150 ML IV (04:36)
[2019-09-27 04:48] LABS: Add Manual Diff / Slide Review NO; Basophils Absolute Auto 100 /uL (0-100); Basophils Percent Auto 0.5 % (0-2); Eosinophils Absolute Auto 800 /uL (0-450); Eosinophils Percent Auto 4.5 % (2-4); Hematocrit 37.7 % (41-53); Hemoglobin 12.6 g/dL (13.5-17.5); Lymphocytes Absolute Auto 1000 /uL (1100-4500); Lymphocytes Percent Auto 5.7 % (25-40); Mean Corpuscular HGB Conc 33.5 % (30-36); Mean Corpuscular Volume 92.6 fL (80-100); Monocytes Absolute Auto 1200 /uL (0-900); Monocytes Percent Auto 6.7 % (3-14); Neutrophils Absolute Auto 14700 /uL (1500-7000); Neutrophils Percent Auto 82.6 % (50-75); Platelet Count 167 X10^3/uL (150-400); Red Blood Cell Count 4.08 X10^6/uL (4.5-5.9); Red Cell Distribution Width 14.9 % (11.6-14.8); White Blood Cell Count 17.8 X10^3/uL (4.5-11.0)
[2019-09-27 04:54] LABS: Alanine Aminotransferase 10 IU/L (<50); Albumin 3.4 g/dL (3.5-5.0); Albumin Globulin Ratio 0.9 (1.0-2.8); Alkaline Phosphatase 77 U/L (38-126); Aspartate Aminotransferase 32 IU/L (17-59); BUN Creatinine Ratio 22.9 (6-22); Bilirubin Total 0.8 mg/dL (0.2-1.3); Bilirubin Unconjugated 0.6 mg/dL (0.0-1.1); Blood Urea Nitrogen 16 mg/dL (9-20); Calcium 8.3 mg/dL (8.4-10.2); Carbon Dioxide 26 mmol/L (22-32); Chloride 106 mmol/L (98-107); Estimated Glomerular Filt Rate > 60.0 mL/min (>60); Globulin 3.8 g/dL (1.7-4.1); Glucose 90 mg/dL (80-110); HEMOLYSIS 20 (0-50); Magnesium 2.5 mg/dL (1.6-2.3); Phosphorous 1.6 mg/dL (2.3-3.7); Potassium 3.4 mmol/L (3.4-5.1); Sodium 141 mmol/L (137-145); Total Protein 7.2 g/dL (6.3-8.2)
--- NOTE | 2019-09-27 05:32 | PC.NURSE ---
[employer] Developer Notes- 0000-Patient is resting, not sleeping, but not agitated, will open eyes slightly to voice and turn head, slight slab tripper to command only. ST, rate 109, NBP 161/81. SpO2 99% with 2L NC in mouth d/t heavy mouth breathing. 0200-Patient is increasingly agitated, moaning, and pulling at tubes, lines, and gown, unable to follow directions and inconsolable. ST 120s. 1mg IV Ativan given per CIWA protocol, CIWA 6. 0300-Patient continues to be restless and agitated, now displaying more non-verbal pain, FLACC 9, 2mg IV morphine given. Requires 1:1 observation to keep him from pulling at lines and clothes. 0530-Patient is sleeping with HOB at 40 degrees, HR down to 107.
[2019-09-27] MEDS: levETIRAcetam 1,000 MG in SODIUM CHLORIDE 0.9% 100 ML 440 ML IV (08:44)
[2019-09-27] MEDS: NICOTINE 21 MG PATCH TOP (08:44)
[2019-09-27] MEDS: LIDOCAINE PATCH 1 EACH ADH..PATCH 2 EACH TOP (08:52)
[2019-09-27] MEDS: FUROSEMIDE 40 MG/4 ML VIAL IV (09:21)
--- NOTE | 2019-09-27 14:51 | PM.PN.1 ---
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 On 09/23/2019 patient was found down on the [place] by [place] who activated EMS. He underwent right hip hemiarthroplasty for displaced right femoral neck fracture with Dr. Gallego on 09/24/2019. The patient appears much more comfortable after morphine. Had a long discussion with the patient's daughter at bedside today, and during our discussion which involved future care planning the patient seemed to be reaching out and trying to speak, but could not. The daughter states that the patient would not want a feeding tube at this time, especially if it appears he may not regain any meaningful function. Decision was made to weight another 24 hours to see if there is improvement, and revisit goals of care discussions tomorrow with possibilities ranging from hospice to transfer to continuing current management. Exam Vital Signs (past 8 hours): - 09/27/19 07:49 09/27/19 08:02 09/27/19 09:00 Temperature 98.7 F Pulse Rate 128 H 116 H Respiratory Rate 27 H 32 H Blood Pressure 177/101 H 161/88 H Pulse Oximetry 96 90 L 96 09/27/19 09:15 09/27/19 12:15 Temperature 98.1 F Pulse Rate 122 H Respiratory Rate 24 Blood Pressure 149/79 H Pulse Oximetry 95 95 Oxygen Delivery Method Nasal Cannula Oxygen Flow Rate 2 Narrative Exam Narrative: GENERAL APPEARANCE: Disheveled male, mouth agape without any noted facial asymmetry. He is able to open his eyes to verbal command, he follows commands intermittently (mainly will squeeze hands more reliably on the left). SKIN: Inspection of the skin reveals no rashes, ulcerations or petechiae. HEENT: Dry mucous membranes, PERRLA, eyes midline but not tracking. Horizontal nystagmus as noted below. NECK: Supple and symmetric. There was no thyroid enlargement, and no tenderness, or masses were felt. CHEST: Normal AP diameter and normal contour without any kyphoscoliosis. LUNGS: Auscultation of the lungs revealed no wheezes, rhonchi, or rales. CARDIOVASCULAR: There was a tachycardic rate with regular rhythm without any murmurs, gallops, rubs. Peripheral pulses were 2+ and symmetric. ABDOMEN: Soft and nontender with normal bowel sounds. No ascites was noted. MUSCULOSKELETAL: There was no tenderness or effusions noted. Muscle strength and tone were normal. EXTREMITIES: No cyanosis, clubbing or edema. NEUROLOGIC: Moaning, making incomprehensible sounds at most times, opens eyes to verbal command usually, trying to sit upright, does withdrawal to pain in bilateral upper extremities. He has a slow horizontal nystagmus this morning but pupils remain equally round and reactive. Objective Labs Result Diagrams: 09/27/19 04:35 09/27/19 04:35 Labs: Laboratory Results - last 24 hr 09/27/19 09/27/19 09/27/19 04:35 04:35 09:45 WBC 17.8 H RBC 4.08 L Hgb 12.6 L Hct 37.7 L MCV 92.6 MCH 31.0 MCHC 33.5 RDW 14.9 H Plt Count 167 Neut % (Auto) 82.6 H Lymph % (Auto) 5.7 L [place] % (Auto) 6.7 Eos % (Auto) 4.5 H Baso % (Auto) 0.5 Neut # (Auto) 22098 H Lymph # (Auto) 1000 L [place] # (Auto) 1200 H Eos # (Auto) 800 H Baso # (Auto) 100 Sodium 141 Potassium 3.4 Chloride 106 Carbon Dioxide 26 BUN 16 Creatinine 0.70 Estimated GFR > 60.0 BUN/Creatinine Ratio 22.9 H Glucose 90 Calcium 8.3 L Phosphorus 1.6 L Magnesium 2.5 H Total Bilirubin 0.8 Conjugated Bilirubin 0.0 Unconjugated Bilirubin 0.6 AST 32 ALT 10 Alkaline Phosphatase 77 Total Protein 7.2 Albumin 3.4 L Globulin 3.8 Albumin/Globulin Ratio 0.9 L Nasal Screen MRSA (PCR) Negative for mrsa Assessment & Plan Assessment & Plan narrative: The patient is a 74-year-old male with PMH of alcohol abuse, 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 On 09/23/2019 patient was found down on the [place] who activated EMS. He is POD#2 s/p right hip hemiarthroplasty for displaced right femoral neck fracture with Dr. Gallego. He also has a non operative right clavicular fracture. Since his procedure he has had an extremely complex course, including an intraparenchymal hemorrhage, waxing and waning mental status, respiratory failure, and a newly found ejection fraction of 25%. It is unknown how acute or chronic many of these issues are at this time. 1. Intraparenchymal hemorrhage, left temporal lobe, acute, stable- - New, small, curvilinear hyperdensity in the left temporal lobe adjacent to the posterior margin of chronic left temporal infarct compatible with small area of acute parenchymal hemorrhage possibly secondary to hemorrhagic transformation of underlying subacute infarct. MR stroke later that evening that showed a possible acute/subacute infarction near the area of the hemorrhage. -repeat CT scan confirmed stability of possible hemorrhage. -transferreded to ICU for frequent neuro checks, now Q shift neurochecks and listed for the regular floor. -remains NPO, however will have to start feeding tube through an NG if consistent with goals of care, daughter agreed on waiting another 24 hours today. -case was discussed with neuro surgery at [facility] in [place] who were able to review the patient's images, they did not believe that there was any acute infarct and that many of his lesions appear to be old. There can be bleeding from old infarctions as well, and this remains the most likely possibility at this time. However, neurosurgery also was not completely convinced that this was an actual hemorrhage, but may be old calcification as well. This was reiterated as well by Neurology who had access to a previous MRI done on this patient which showed similar findings. 2. Toxic metabolic encephalopathy, acute -patient with profound lethargy. Etiologies at this time include intraparenchymal hemorrhage as above, possible subacute infarct (however these are now less likely), toxic metabolic encephalopathy from medications (opiates and benzodiazepines) or pneumonia, hospital delirium, and progression of chronic disease. Based on patient interactions today, he appears alert but unable to speak, raising the possibility that this was indeed an acute infarct, however toxic metabolic causes have not fully resolved at this time, and will need to see if there is any change in his mental status going forward. -pCO2 was 32 which is unlikely the source of his altered mental status. Chemistries are further unremarkable. CT abdomen did not show any evidence of cirrhosis. ACS unlikely. UA was not indicative of infection. -Discussed the case with neurology (Dr. Flanagan), also at [facility] who had access to a previous MRI which showed a similar finding with possible calcification of an old infarct. Given patient's waxing and waning mental status, neurologist today did believe that this most likely represents a toxic metabolic encephalopathy or hospital delirium. She recommended limiting opiate pain medicines and benzodiazepines as much as possible, with the balance of treating for potential alcohol withdrawal vs pain control. She did not believe this sounded like seizures but agreed with initiation of Keppra at this time. If there is no improvement after treatment of possible underlying toxic metabolic encephalopathy, considerations for further neurological evaluation and EEG could be entertained. -continue treatment of pneumonia as noted below. 3. Right femoral neck fracture (displaced), acute, present on admission, active - status post right hemiarthroplasty with Dr. Chin on 09/24/2019. -will hold postoperative Lovenox that was ordered, pending neuro surgical consultation as noted above - PT eval & treat has been ordered, participation is limited at this time - Holding SAP [employer]UTION MANAGER CONSULTANT ASA 81 mg 4. Right nondisplaced distal clavicle fracture -appreciate orthopedic recommendations, non operative management -Orthopedic surgery recommends platform walker 5. Heart failure with reduced ejection fraction, unknown acuity - TTE: Left ventricular systolic function is moderate to severely reduced (25). The anterior wall is not well visualized and a focal wall motion abnormality is not completely excluded. Otherwise there is overall moderate global hypokinesis.The right ventricle is grossly normal size. The right ventricular systolic function is normal. The right ventricular systolic pressure is estimated to be at least 59 mmHg based on an estimated right atrial pressure of 3 mm Hg. -will diurese slightly with 40 mg of IV Lasix daily given bilateral pleural effusions on CTA and elevated right-sided pressures. There is no evidence of volume overload on exam. -possibly this is related to his tachyarrhythmia that happened immediately after surgery which is now improved. -heart rate has improved with pain control but will need to start beta-jl therapy if an NG tube is placed. -cardiology had called to consider LHC, however given possible intraparenchymal hemorrhage and patient's overall clinical condition they did not deem it necessary at this time. 6. Acute hypoxemic respiratory failure secondary to Right basilar pneumonia, acute -patient increasingly tachycardic and had desaturations into the mid 80s and became quite tachypneic. CTA chest was performed which did not show any evidence of PE, but did show a right basilar pneumonia and small bilateral pulmonary effusions. The pleural effusions are likely due to the patient's reduced ejection fraction as noted above. -possibly secondary to aspiration. This could have been present both before surgery and after surgery, and will not be able to clinically determine this. White blood cell count has stabilized today at 17. -continue Unasyn 3 g q.6 hours for a treatment total of 7 days. Collect sputum culture if able. -continue Lasix as noted above -blood cultures are pending 7. Dehydration, acute, present on admission, active -multifactorial etiology at this time including no p.o. intake, possible rhabdo, and what appears to be poor nutritional status -will stop IV fluids given possible overload as noted above 8. Elevated Lactate, acute, present on admission, resolved - Received IVF in ED, could be potentially elevated in the setting of a seizure, however this will likely be unable to be determined exactly. - Repeat lactate 1.3 7. Seizures, chronic condition, present on admission, potentially active -continue seizure precautions - last seizure 05/2019 (reported by family), it is unclear whether the altered mental status he developed today is reflective a postictal state as discussed above - continue SAP SOLUTION MANAGER CONSULTANT regimen of lamotrigine -patient was started on Keppra 1000 mg b.i.d. and then will decrease to 500 mg b.i.d. tonight -if no resolution of mental status after evaluating and treating possible causes of toxic/metabolic encephalopathy as noted above, consider transfer for neurological evaluation and EEG. 8. Tobacco dependence, chronic condition, present on admission, active - current 1 ppd smoker, nicotine patch 9. Centrilobular emphysema, chronic condition, present on admission, stable - no active pulmonary decompensation, this may be the source of his elevated right-sided pressures. 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 11. H/O alcohol abuse, present on admission, stable - resume PT regimen of folic acid and thiamine, daughter reported giving his father a 6 pack of beer on 09/21/2019. He was otherwise unable to obtain other alcohol that she is aware of. This is likely the time of his last drinking. 12. Type 2 myocardial infarction, resolved -occurred during an episode of tachycardia, which was potentially atrial flutter, however this was not able to be captured on EKG as his rate had improved into the 120s and this showed sinus tachycardia. He did have an elevation in his troponins to 0.062, which down trended. This was likely elevated in the setting of his potential tachyarrhythmia. He was further potentially complaining of chest pain at the time but given his mental status it was unclear. FEN/GI: Currently NPO, consult dietary for tube feeding recommendations if NG tube is desired. Code status discussed with daughter. According to the daughter patient wishes to be full code. He does not have a formal health directive. Daughter Sarina Acosta is the surrogate decision maker. She did state that the patient would not want a permanent feeding tube, and would not want to be in a half-way for the rest of his life. Told patient that his prognosis does not look good at this point, and will meet again tomorrow to discuss the possibility of focusing on comfort. VTE prophylaxis w/ SCDs for now, given intraparenchymal hemorrhage as noted above. Can likely resume tomorrow given the bleeding is stable on imaging today. Dispo: Patient's current status remains guarded. Quality VTE Deep Vein Thrombosis/Pulmonary Embolism Present on Admission: No
[2019-09-27] MEDS: SODIUM CHLORIDE 0.9% 250 ML 21 ML IV (15:01)
[2019-09-27] MEDS: levETIRAcetam 500 MG in SODIUM CHLORIDE 0.9% 100 ML 440 ML IV (21:29)
--- NOTE | 2019-09-27 23:23 | PC.NURSE ---
Patient not oriented for evening, occasionally alert/combative. Morphine and Ativan given 2x. 2 L O2. Kaur. NPO. No BM. Bed alarm on. Daughter says she will meet with MD tomorrow to discuss possibly putting the patient on hospice.
[2019-09-28] VITALS (8 sets, daily range): BP systolic 142–166; BP diastolic 76–105; PULSE 104–118; RESP 20–32; TEMP 35.8–37.1; O2SAT 92–100
[2019-09-28] MEDS: MORPHINE 2 MG/ML INJ IV ×4 (00:21→14:22)
[2019-09-28] MEDS: AMPICILLIN/SULBACTAM 3 GM 3 GM in SODIUM CHLORIDE 0.9% 100 ML IV ×4 (00:21→17:21)
[2019-09-28] MEDS: SODIUM CHLORIDE 0.9% 250 ML 21 ML IV (02:57)
[2019-09-28] MEDS: LORazepam 2 MG/ML INJ IV ×3 (03:39→17:21)
[2019-09-28 05:03] LABS: Add Manual Diff / Slide Review NO; Basophils Absolute Auto 100 /uL (0-100); Basophils Percent Auto 0.4 % (0-2); Eosinophils Absolute Auto 800 /uL (0-450); Eosinophils Percent Auto 5.6 % (2-4); Hematocrit 34.6 % (41-53); Hemoglobin 11.8 g/dL (13.5-17.5); Lymphocytes Absolute Auto 800 /uL (1100-4500); Lymphocytes Percent Auto 5.7 % (25-40); Mean Corpuscular HGB Conc 34.1 % (30-36); Mean Corpuscular Hemoglobin 31.1 PG (26-34); Mean Corpuscular Volume 91.2 fL (80-100); Monocytes Absolute Auto 1600 /uL (0-900); Monocytes Percent Auto 11.3 % (3-14); Neutrophils Absolute Auto 11100 /uL (1500-7000); Platelet Count 187 X10^3/uL (150-400); Red Blood Cell Count 3.79 X10^6/uL (4.5-5.9); Red Cell Distribution Width 14.7 % (11.6-14.8); White Blood Cell Count 14.4 X10^3/uL (4.5-11.0)
[2019-09-28 05:11] LABS: Alanine Aminotransferase 10 IU/L (<50); Albumin Globulin Ratio 0.9 (1.0-2.8); Alkaline Phosphatase 66 U/L (38-126); Aspartate Aminotransferase 30 IU/L (17-59); BUN Creatinine Ratio 28.3 (6-22); Bilirubin Total 0.7 mg/dL (0.2-1.3); Bilirubin Unconjugated 0.5 mg/dL (0.0-1.1); Blood Urea Nitrogen 17 mg/dL (9-20); Calcium 7.9 mg/dL (8.4-10.2); Carbon Dioxide 26 mmol/L (22-32); Chloride 106 mmol/L (98-107); Estimated Glomerular Filt Rate > 60.0 mL/min (>60); Globulin 3.4 g/dL (1.7-4.1); Glucose 91 mg/dL (80-110); HEMOLYSIS < 15 (0-50); Magnesium 2.4 mg/dL (1.6-2.3); Phosphorous 2.1 mg/dL (2.3-3.7); Sodium 140 mmol/L (137-145); Total Protein 6.4 g/dL (6.3-8.2)
--- NOTE | 2019-09-28 06:45 | PC.NURSE ---
Quarter Doper Note-No changes to patient's mentation, GCS 12-13, remains non-verbal and intermittently agitated. IV morphine per prn for FLACC 7-8, IV Ativan once for agitation and CIWA 8-9.
--- NOTE | 2019-09-28 07:21 | P.PN_ITS ---
Subjective Subjective Date Patient Seen: 09/28/19 Time Patient Seen: 07:21 Interval history: Postop day 4 right cemented hemiarthroplasty Nonoperative treatment nondisplaced right distal clavicle fracture Patient continues sinus tachycardia most of the day yesterday has been monitored and treated by admitting team, hospitalists had CTA no PE but did show pneumon ia. Continues to be somnolent. CT scan possible small intracranial hemorrhage. There is a neurosurgery consult. Patient's mental status has been challenging throughout hospitalization and basically unable to get any sense of a motor sensory exam. Underlying emphysema Exam Vital Signs (past 8 hours): - 09/28/19 00:00 09/28/19 04:51 Temperature 97.2 F L 96.5 F L Pulse Rate 113 H 104 H Respiratory Rate 25 H 21 Blood Pressure 166/89 H 147/76 H Pulse Oximetry 98 100 Oxygen Delivery Method Nasal Cannula Oxygen Flow Rate 2 Narrative Exam Narrative: Lying in bed. Nasal cannula oxygen. Does not participate and motor sensory exam. Aquacel dressing on right hip thigh is soft. Calf is soft. SCDs in place. Objective Labs Result Diagrams: 09/28/19 04:50 09/28/19 04:50 Labs: Laboratory Results - last 24 hr 09/27/19 09/28/19 09/28/19 09:45 04:50 04:50 WBC 14.4 H RBC 3.79 L Hgb 11.8 L Hct 34.6 L MCV 91.2 MCH 31.1 MCHC 34.1 RDW 14.7 Plt Count 187 Neut % (Auto) 77.0 H Lymph % (Auto) 5.7 L [place] % (Auto) 11.3 Eos % (Auto) 5.6 H Baso % (Auto) 0.4 Neut # (Auto) 77125 H Lymph # (Auto) 800 L [place] # (Auto) 1600 H Eos # (Auto) 800 H Baso # (Auto) 100 Sodium 140 Potassium 3.0 L Chloride 106 Carbon Dioxide 26 BUN 17 Creatinine 0.60 L Estimated GFR > 60.0 BUN/Creatinine Ratio 28.3 H Glucose 91 Calcium 7.9 L Phosphorus 2.1 L Magnesium 2.4 H Total Bilirubin 0.7 Conjugated Bilirubin 0.0 Unconjugated Bilirubin 0.5 AST 30 ALT 10 Alkaline Phosphatase 66 Total Protein 6.4 Albumin 3.0 L Globulin 3.4 Albumin/Globulin Ratio 0.9 L Nasal Screen MRSA (PCR) Negative for mrsa Assessment & Plan Post-op Postoperative Procedures: Procedures Operation Date: 09/24/19 16:45 Actual Procedures Side Surgeon p Hip Hemiarthroplasty Right Minal Gallego MD Postop day 4 right hip cemented hemiarthroplasty. H&H stable. Weightbear as tolerated. Abduction pillow while in bed for 1st few days until posterior hip precautions can be taught. SCDs for DVT prophylaxis. Lovenox was discontinued at this time regarding the intracranial hemorrhage would defer to Neurosurgery recommendations, restart when able. Pneumonia. -respiratory failure, Currently on antibiotics. Dressing intact on the hip Aquacel in place. May change if saturated. Nondisplaced right distal clavicle fracture. Non operative treatment. Recommend platform walker once patient is able to get up out of bed for 4-6 weeks as needed for ambulation Medical management for primary Patient with multiple comorbidities unfortunately respiratory status is deteriorating. Primary team to meet with the family again discuss care goals. Follow-up [facility] 10-14 days postop for repeat x-rays right hip, right clavicle, and staple removal right hip. Continue posterior hip precautions x6 weeks. Pharmacologic DVT prophylaxis when determined OK by primary team/neurosurgery. Continue SCDs for now Quality VTE Deep Vein Thrombosis/Pulmonary Embolism Present on Admission: No
--- NOTE | 2019-09-28 08:58 | CM.DPNOTE ---
Addendum entered by Deyanira Griffith, [employer]ENTS ASSEMBLER 09/28/19 15:45: Pt now comfort management and DNR/DNI limited interventions, no artificial nutrition. Hospice Info visit now arranged for Tuesday; discussed POC w/ Dtteresa Branch and explained [facility] is now reviewing for possible admission for comfort management. Dtr expressed concern about pt leaving the hospital and states the doctor does not think he will live past a week. Gently reminded dtr that if pt's pain/symptoms are well managed here and a SNF can safely manage pt's comfort care, he may be medically discharged. Dtr remains skeptical. Family concerned this afternoon about pt needing more pain medicine RN aware and Dr Miramontes changing orders for comfort management. Following closely. Updated clinical faxed to [facility] RYAN CROWDER Addendum entered by Deyanira Griffith, MUS[employer] IN[employer]UMENTS ASSEMBLER 09/28/19 12:23: Dr Miramontes has been speaking w/pt's family re POC; he requests this MUS[employer] INSTRUMENTS ASSEMBLER make a Hospice Info visit referral today. Placed call to melania Branch, she confirmed this would be appropriate and requests Tuesday for Info Visit so that additional family could be available. Placed call to Sarita at [facility], faxed referral. Info visit available Tuesday at 1000, msg left for melania Branch. Dr Miramontes at bedside now; reviewing POC w/family. Status remains the same per JEWEL CROWDER Original Note: DCP Cont Received call from Millicent No, [facility] P# [phone], called back to update Millicent on pt's current guarded prognosis. Pt is expected to require an SNF after this hospitalization using MCR A benefit then potentially [facility] for continued stay ? Millicent requests updates when available and will staff this with her team as well. Further discussion needed between family and attending hospitalist today to determine next steps in medical POC VEL
[2019-09-28] MEDS: levETIRAcetam 500 MG in SODIUM CHLORIDE 0.9% 100 ML 440 ML IV ×2 (10:12→21:05)
[2019-09-28] MEDS: NICOTINE 21 MG PATCH TOP (10:13)
[2019-09-28] MEDS: FUROSEMIDE 40 MG/4 ML VIAL IV (10:18)
--- NOTE | 2019-09-28 12:51 | PC.NURSE ---
Addendum entered by Dariana García R.N. 09/28/19 14:39: pt medicated with iv loraz/ morphine per family post family conversation with MD- and planning course of care- Original Note: pt remains npo and non-verbal intermittent tachypnea upwards of 45-55 rpm - medicated x 1 with ms 2mg which seemed to settle down - called md re: potassium level - awaiting orders - diuresing well per romo,
[2019-09-28] MEDS: MORPHINE 4 MG/ML INJ IV (17:23)
--- NOTE | 2019-09-28 18:30 | PM.PN.1 ---
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 On 09/23/2019 patient was found down on the [address] by [place]standers [place] who activated EMS. He underwent right hip hemiarthroplasty for displaced right femoral neck fracture with Dr. Gallego on 09/24/2019. The patient appears much more comfortable after morphine. After a long discussion with patient's daughter over the past few days, current decision is to focus goals of care on comfort. They did want to continue his antibiotics, but did not want a feeding tube, further lab draws, and did decide to make him DNR/DNI. Exam Vital Signs (past 8 hours): - 09/28/19 10:43 09/28/19 12:00 09/28/19 16:00 Temperature 98.7 F 97.9 F Pulse Rate 114 H 114 H 118 H Respiratory Rate 32 H 28 H 24 Blood Pressure 156/79 H 157/105 H Pulse Oximetry 92 96 97 Oxygen Delivery Method Nasal Cannula Oxygen Flow Rate 2 Narrative Exam Narrative: GENERAL APPEARANCE: Disheveled male, mouth agape without any noted facial asymmetry. He is able to open his eyes to verbal command, he follows commands intermittently (mainly will squeeze hands more reliably on the left). SKIN: Inspection of the skin reveals no rashes, ulcerations or petechiae. HEENT: Dry mucous membranes, PERRLA, eyes midline but not tracking. Horizontal nystagmus as noted below. NECK: Supple and symmetric. There was no thyroid enlargement, and no tenderness, or masses were felt. CHEST: Normal AP diameter and normal contour without any kyphoscoliosis. LUNGS: Auscultation of the lungs revealed no wheezes, rhonchi, or rales. CARDIOVASCULAR: There was a tachycardic rate with regular rhythm without any murmurs, gallops, rubs. Peripheral pulses were 2+ and symmetric. ABDOMEN: Soft and nontender with normal bowel sounds. No ascites was noted. MUSCULOSKELETAL: There was no tenderness or effusions noted. Muscle strength and tone were normal. EXTREMITIES: No cyanosis, clubbing or edema. NEUROLOGIC: Moaning, making incomprehensible sounds at most times, opens eyes to verbal command usually, trying to sit upright, does withdrawal to pain in bilateral upper extremities. He has a slow horizontal nystagmus this morning but pupils remain equally round and reactive. Objective Labs Result Diagrams: 09/28/19 04:50 09/28/19 04:50 Labs: Laboratory Results - last 24 hr 09/28/19 09/28/19 04:50 04:50 WBC 14.4 H RBC 3.79 L Hgb 11.8 L Hct 34.6 L MCV 91.2 MCH 31.1 MCHC 34.1 RDW 14.7 Plt Count 187 Neut % (Auto) 77.0 H Lymph % (Auto) 5.7 L [place] % (Auto) 11.3 Eos % (Auto) 5.6 H Baso % (Auto) 0.4 Neut # (Auto) 19843 H Lymph # (Auto) 800 L [place] # (Auto) 1600 H Eos # (Auto) 800 H Baso # (Auto) 100 Sodium 140 Potassium 3.0 L Chloride 106 Carbon Dioxide 26 BUN 17 Creatinine 0.60 L Estimated GFR > 60.0 BUN/Creatinine Ratio 28.3 H Glucose 91 Calcium 7.9 L Phosphorus 2.1 L Magnesium 2.4 H Total Bilirubin 0.7 Conjugated Bilirubin 0.0 Unconjugated Bilirubin 0.5 AST 30 ALT 10 Alkaline Phosphatase 66 Total Protein 6.4 Albumin 3.0 L Globulin 3.4 Albumin/Globulin Ratio 0.9 L Assessment & Plan Assessment & Plan narrative: The patient is a 74-year-old male with PMH of alcohol abuse, 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 On 09/23/2019 patient was found down on the [place]standers [place] who activated EMS. He is POD#2 s/p right hip hemiarthroplasty for displaced right femoral neck fracture with Dr. Gallego. He also has a non operative right clavicular fracture. Since his procedure he has had an extremely complex course, including an intraparenchymal hemorrhage, waxing and waning mental status, respiratory failure, and a newly found ejection fraction of 25%. It is unknown how acute or chronic many of these issues are at this time. The family did decide to make the patient's primary goals of care to be focused on comfort at this time. There is an informational hospice visit scheduled for tomorrow. Lab draws or discontinued. The only continued care for the patient will remain his antiseizure medications and antibiotics for pneumonia. There will be no further escalations of care at this time. 1. Intraparenchymal hemorrhage, left temporal lobe, acute, stable- - New, small, curvilinear hyperdensity in the left temporal lobe adjacent to the posterior margin of chronic left temporal infarct compatible with small area of acute parenchymal hemorrhage possibly secondary to hemorrhagic transformation of underlying subacute infarct. MR stroke later that evening that showed a possible acute/subacute infarction near the area of the hemorrhage. -repeat CT scan confirmed stability of possible hemorrhage. -transferreded to ICU for frequent neuro checks, then with Q shift checks and listed for the regular floor. Now can discontinue neuro checks. -remains NPO, family did not desire feeding tube as they did not believe it to be consistent with the patient's previously stated wishes. -case was discussed with neuro surgery at [facility] in [place] who were able to review the patient's images, they did not believe that there was any acute infarct and that many of his lesions appear to be old. There can be bleeding from old infarctions as well, and this remains the most likely possibility at this time. However, neurosurgery also was not completely convinced that this was an actual hemorrhage, but may be old calcification as well. This was reiterated as well by Neurology who had access to a previous MRI done on this patient which showed similar findings. -The longer the patient went while trying to limit pain and anxiety medications, without much fluctuation in mental status, it became more apparent that there was likely a significant stroke that occurred which was noted by the radiologist on the MRI here. 2. Toxic metabolic encephalopathy, acute -patient with profound lethargy. Etiologies include intraparenchymal hemorrhage as above, possible subacute infarct (as time progressed this became more likely), toxic metabolic encephalopathy from medications (opiates and benzodiazepines) or pneumonia, hospital delirium, and progression of chronic disease. Based on patient interactions, he appears alert but unable to speak, raising the possibility that this was indeed an acute infarct. Family ultimately decided on no escalation of care as noted above. -pCO2 was 32 which is unlikely the source of his altered mental status. Chemistries are further unremarkable. CT abdomen did not show any evidence of cirrhosis. ACS unlikely. UA was not indicative of infection. -Discussed the case with neurology (Dr. Flanagan), also at [facility] who had access to a previous MRI which showed a similar finding with possible calcification of an old infarct. Given patient's waxing and waning mental status initially, neurologist did believe at that time that this most likely represented a toxic metabolic encephalopathy or hospital delirium. She recommended limiting opiate pain medicines and benzodiazepines as much as possible, with the balance of treating for potential alcohol withdrawal vs pain control. She did not believe this sounded like seizures but agreed with initiation of Keppra at that time. There was no improvement despite trying to limit pain control medications, making an acute/subacute CVA the most likely etiology. -continue treatment of pneumonia as noted below. 3. Right femoral neck fracture (displaced), acute, present on admission, active - status post right hemiarthroplasty with Dr. Chin on 09/24/2019. -will hold postoperative Lovenox that was ordered, pending neuro surgical consultation as noted above - Holding LINE ASSIGNER ASA 81 mg 4. Right nondisplaced distal clavicle fracture -appreciate orthopedic recommendations, non operative management 5. Heart failure with reduced ejection fraction, unknown acuity - TTE: Left ventricular systolic function is moderate to severely reduced (25). The anterior wall is not well visualized and a focal wall motion abnormality is not completely excluded. Otherwise there is overall moderate global hypokinesis.The right ventricle is grossly normal size. The right ventricular systolic function is normal. The right ventricular systolic pressure is estimated to be at least 59 mmHg based on an estimated right atrial pressure of 3 mm Hg. -Patient was diuresed with 40 mg of IV lasix daily x3, this seemingly had no effect on his pulmonary function. -possibly this was related to his tachyarrhythmia that happened immediately after surgery which is now improved. -heart rate has improved with pain control -cardiology had called to consider LHC, however given possible intraparenchymal hemorrhage and patient's overall clinical condition they did not deem it necessary at this time. 6. Acute hypoxemic respiratory failure secondary to Right basilar pneumonia, acute -patient became increasingly tachycardic and had desaturations into the mid 80s and became quite tachypneic. CTA chest was performed which did not show any evidence of PE, but did show a right basilar pneumonia and small bilateral pulmonary effusions. The pleural effusions are likely due to the patient's reduced ejection fraction as noted above, however diuresis did not appear to help much with his respiratory failure. -possibly secondary to aspiration. This could have been present both before surgery and after surgery, and will not be able to clinically determine this. White blood cell count did improve with unasyn. -continue Unasyn 3 g q.6 hours for a treatment total of 7 days. Family would like to continue this. -continue Lasix as noted above -blood cultures are pending 7. Dehydration, acute, present on admission, active -multifactorial etiology at this time including no p.o. intake, possible rhabdo, and what appears to be poor nutritional status -will stop IV fluids given possible overload as noted above 8. Elevated Lactate, acute, present on admission, resolved - Received IVF in ED, could be potentially elevated in the setting of a seizure, however this will likely be unable to be determined exactly. - Repeat lactate 1.3 7. Seizures, chronic condition, present on admission, potentially active -continue seizure precautions - last seizure 05/2019 (reported by family), it is unclear whether the altered mental status he developed today is reflective a postictal state as discussed above -patient was started on Keppra 1000 mg b.i.d. and then decrease to 500 mg b.i.d. He will continue on this to reduce the possibility of him having a seziure while goals of care are focused on comfort. -if no resolution of mental status after evaluating and treating possible causes of toxic/metabolic encephalopathy as noted above, considered transfer for neurological evaluation and EEG, however the family did not wish to persue this as his presentation was not consistent with seizure. 8. Tobacco dependence, chronic condition, present on admission, active - current 1 ppd smoker, nicotine patch 9. Centrilobular emphysema, chronic condition, present on admission, stable - no active pulmonary decompensation, this may be the source of his elevated right-sided pressures. 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 11. H/O alcohol abuse, present on admission, stable - resume PT regimen of folic acid and thiamine, daughter reported giving his father a 6 pack of beer on 09/21/2019. He was otherwise unable to obtain other alcohol that she is aware of. This is likely the time of his last drinking. 12. Type 2 myocardial infarction, resolved -occurred during an episode of tachycardia, which was potentially atrial flutter, however this was not able to be captured on EKG as his rate had improved into the 120s and this showed sinus tachycardia. He did have an elevation in his troponins to 0.062, which down trended. This was likely elevated in the setting of his potential tachyarrhythmia. He was further potentially complaining of chest pain at the time but given his mental status it was unclear. 13. CVA, subacute - as noted above FEN/GI: Currently NPO, NG tube is not desired per family. Code status discussed with daughter. According to the daughter patient wishes now to be DNR/DNI. He does not have a formal health directive. Daughter Sarina Acosta is the surrogate decision maker. She did state that the patient would not want a permanent feeding tube, and would not want to be in a halfway for the rest of his life. Given the liklihood at this time of this being his best outcome (with a small chance of that at this time) the family decided to focus on comfort as the primary goal. Family has scheduled an information visit with hospice tomorrow. They are worried slightly about taking him home with patient's grandchildren living in the home. Dispo: Likely to respit care or home with hospice. Quality VTE Deep Vein Thrombosis/Pulmonary Embolism Present on Admission: No
--- NOTE | 2019-09-28 18:50 | PC.NURSE ---
Patient moved to room 225, space needed in ICU. Report given to Catalino, receiving RN. Family present, belongings all transferred to new room.
[2019-09-28] MEDS: MORPHINE 2 MG/ML INJ 4 MG IV (19:52)
[2019-09-29] VITALS: BP 162/99; PULSE 121; RESP 32; TEMP 36.9; O2SAT 93
[2019-09-29] MEDS: AMPICILLIN/SULBACTAM 3 GM 3 GM in SODIUM CHLORIDE 0.9% 100 ML IV ×3 (00:06→13:06)
[2019-09-29] MEDS: MORPHINE 4 MG/ML INJ IV ×7 (01:03→20:36)
[2019-09-29 01:05] VITALS: PULSE 105; O2SAT 97
--- NOTE | 2019-09-29 05:41 | PC.NURSE ---
Pt non-verbal with staff; occasionally makes eye contact when responding to his own name. Pt managed to pull out IV this morning. New IV inserted. Kaur with chaim urine. 2L NC placed in mouth; pt mouth breathing. T&P q2h morphine q4h for pain
[2019-09-29 08:25] VITALS: PULSE 94; O2SAT 98
[2019-09-29] MEDS: SCOPOLAMINE 1 PATCH TOP (09:31)
[2019-09-29] MEDS: FUROSEMIDE 40 MG/4 ML VIAL IV (09:31)
[2019-09-29] MEDS: NICOTINE 21 MG PATCH TOP (09:31)
[2019-09-29] MEDS: levETIRAcetam 500 MG in SODIUM CHLORIDE 0.9% 100 ML 440 ML IV ×2 (09:33→20:36)
[2019-09-29 10:00] VITALS: BP 145/85; PULSE 96; RESP 26; TEMP 36.8; O2SAT 96
--- NOTE | 2019-09-29 10:57 | PM.PN.1 ---
Subjective Subjective Date Patient Seen: 09/29/19 Interval history: Patient is POD#5 s/p right cemented hemiarthroplasty with Dr. Gallego. Patient remains unable to provide history. Exam Vital Signs (past 8 hours): - 09/29/19 08:25 09/29/19 10:00 Temperature 98.2 F Pulse Rate 94 H 96 H Respiratory Rate 26 H Blood Pressure 145/85 H Pulse Oximetry 98 96 Oxygen Delivery Method Nasal Cannula Oxygen Flow Rate 1 Narrative Exam Narrative: 74 year old male resting in bed. Aquacel dressing peeling up was replaced by nursing with coversite dressing. Aquacel was clean and dry at time of removal. Some minimal erythema and swelling anterior thigh. Unable to comply with motor exam. Objective Labs Result Diagrams: 09/28/19 04:50 09/28/19 04:50 Assessment & Plan Assessment & Plan narrative: Patient with multiple comorbidities unfortunately status is deteriorating. Medicine is primary team. Family has agreed on comfort care at this point. Pending hospice eval today. They are refusing abduction pillow, so will use standard pillow between the knees. Follow-up [facility] 10-14 days postop for repeat x-rays right hip, right clavicle, and staple removal right hip. Continue posterior hip precautions x6 weeks. Pharmacologic DVT prophylaxis when determined OK by primary team/neurosurgery. Continue SCDs for now Quality VTE Deep Vein Thrombosis/Pulmonary Embolism Present on Admission: No
--- NOTE | 2019-09-29 11:50 | PM.PN.1 ---
Subjective Subjective Date Patient Seen: 09/29/19 Interval history: chart reviewed patient seen and examined patient's nieces are at the bedside. Questions have been answered regarding their uncle's care. Patient is unresponsive, appears to be comfortable, is a mouth breather and at times is hypoxic. He continues to receive pain medication, anti anxiety medications and his usual IV antibiotics. Hospice consultation is pending today. Exam Vital Signs (past 8 hours): - 09/29/19 08:25 09/29/19 10:00 Temperature 98.2 F Pulse Rate 94 H 96 H Respiratory Rate 26 H Blood Pressure 145/85 H Pulse Oximetry 98 96 Oxygen Delivery Method Nasal Cannula Oxygen Flow Rate 1 Narrative Exam Narrative: Debilitated ill-appearing male lying in bed lungs: Decreased breath sounds cardiac exam: Regular rate and rhythm normal S1-S2 abdomen: Soft nontender nondistended extremities: Right hip dressing in place, mild erythema over the site, no lower extremity edema, Objective Labs Result Diagrams: 09/28/19 04:50 09/28/19 04:50 Assessment & Plan Assessment & Plan narrative: Intraparenchymal hemorrhage, left temporal lobe, acute, stable- - no intervention at this time patient on comfort measures continue Keppra for now 2. Toxic metabolic encephalopathy, acute - likely multifactorial patient remains unresponsive CONTINUE COMFORT MEASURES 3. Right femoral neck fracture (displaced), acute, present on admission, active - status post right hemiarthroplasty with Dr. Chin on 09/24/2019. - GIVEN THAT THE PATIENT IS COMFORT MEASURES, will defer aspirin or anticoagulation at this time 4. Right nondisplaced distal clavicle fracture -appreciate orthopedic recommendations, non operative management 5. Heart failure with reduced ejection fraction, unknown acuity - TTE: Left ventricular systolic function is moderate to severely reduced (25). The anterior wall is not well visualized and a focal wall motion abnormality is not completely excluded. Otherwise there is overall moderate global hypokinesis.The right ventricle is grossly normal size. The right ventricular systolic function is normal. The right ventricular systolic pressure is estimated to be at least 59 mmHg based on an estimated right atrial pressure of 3 mm Hg. -Patient was diuresed with 40 mg of IV lasix daily x3, this seemingly had no effect on his pulmonary function. - no further intervention at this time as we are focusing comfort 6. Acute hypoxemic respiratory failure secondary to Right basilar pneumonia, acute -patient became increasingly tachycardic and had desaturations into the mid 80s and became quite tachypneic. CTA chest was performed which did not show any evidence of PE, but did show a right basilar pneumonia and small bilateral pulmonary effusions. The pleural effusions are likely due to the patient's reduced ejection fraction as noted above, however diuresis did not appear to help much with his respiratory failure. -possibly secondary to aspiration. This could have been present both before surgery and after surgery, and will not be able to clinically determine this. White blood cell count did improve with unasyn. -continue Unasyn 3 g q.6 hours for a treatment total of 7 days. Family would like to continue this. -continue Lasix as noted above -blood cultures are pending 7. Dehydration, acute, present on admission, active -multifactorial etiology at this time including no p.o. intake, possible rhabdo, and what appears to be poor nutritional status -will stop IV fluids given possible overload as noted above 8. Elevated Lactate, acute, present on admission, resolved - Received IVF in ED, could be potentially elevated in the setting of a seizure, however this will likely be unable to be determined exactly. - Repeat lactate 1.3 7. Seizures, chronic condition, present on admission, potentially active -continue seizure precautions - l will continue IV Keppra - however the patient transfers to [facility] with hospice will discontinue. 8. Tobacco dependence, chronic condition, present on admission, active - current 1 ppd smoker, nicotine patch 9. 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 H/O alcohol abuse, present on admission, stable - resume PT regimen of folic acid and thiamine, daughter reported giving his father a 6 pack of beer on 09/21/2019. He was otherwise unable to obtain other alcohol that she is aware of. This is likely the time of his last drinking. 12. Type 2 myocardial infarction, resolved - 13. CVA, subacute FEN/GI: Currently NPO, NG tube is not desired per family. Code status discussed with daughter. According to the daughter patient wishes now to be DNR/DNI. He does not have a formal health directive. Daughter Sarina Acosta is the surrogate decision maker. She did state that the patient would not want a permanent feeding tube, and would not want to be in a long term for the rest of his life. Given the liklihood at this time of this being his best outcome (with a small chance of that at this time) the family decided to focus on comfort as the primary goal. Family has scheduled an information visit with hospice today a t 1pm. Anticipate discharge to [facility] once bed is available Quality VTE Deep Vein Thrombosis/Pulmonary Embolism Present on Admission: No
[2019-09-29] MEDS: LORazepam 2 MG/ML INJ IV (14:01)
[2019-09-29] MEDS: fentaNYL 25 MCG/PATCH TOP (14:38)
--- NOTE | 2019-09-29 15:16 | CM.DPNOTE ---
DCP Cont Spoke to Mehnaz today at [facility]; they have a bed and staffing for pt Tuesday 3.9.20. This ESTATE AGENT completed PASRR. Hospice Info visit commenced at 1330 today; Eva at [facility] suggested [facility] keep them in contact in the case that pt remains at SNF beyond Med A benefit and begins to use [facility] benefit, at which time they could provide service at [facility] Dr Kang, this ESTATE AGENT and pt's family, dtr Sarina and extended family present today, discussed POC; Dr Kang outlined plan to include management of pt's comfort throughout the weekend; family requesting additional pain meds to assist in pt's agitation and grimacing today. Family also request discontinuation of IV abx today. Then reassessment Tuesday of pt's status and potential DC to [facility] for continued end of life management Extended family member explains to this ESTATE AGENT and Dr Kang that dtr Sarina has seen her father approx 5 times throughout her life and so is having a very challenging time throughout the decision process but family available to support her ESTATE AGENT team following closely for coordination of safe DC plan and support as needed. Hopefully POL can be updated before transport Tuesday. Also would be helpful to update Millicent at [facility] upon pt's DC FIDENCIO Parikh
[2019-09-29 16:02] VITALS: BP 148/88; PULSE 105; RESP 24; TEMP 37.3; O2SAT 82
[2019-09-29 17:12] VITALS: PULSE 110; RESP 22; O2SAT 93
--- NOTE | 2019-09-29 22:05 | PC.NURSE ---
Kayla shift note: Patient sleeping between care, will open eyes for a few seconds in response to voice. Gently repositioning in bed frequently and administering scheduled pain medication as ordered. Per daughter Sarina and family at bedside patient to be off O2, and to continue Medications for comfort. Family states the goal is to keep him comfortable and avoid getting hime agitated. Output via Kaur Cath 100 ml, dark yellow urine. Oral care provided, pillow to bony prominences, waffle cushion, and HOB elevated. Seizure precautions maintained.
[2019-09-30 00:08] VITALS: BP 149/90; PULSE 110; RESP 20; TEMP 37.1; O2SAT 77
[2019-09-30] MEDS: MORPHINE 4 MG/ML INJ IV ×6 (00:26→21:40)
[2019-09-30] MEDS: NICOTINE 21 MG PATCH TOP (09:22)
[2019-09-30 10:00] VITALS: BP 151/90; RESP 30; TEMP 37.2; O2SAT 76
[2019-09-30] MEDS: LORazepam 2 MG/ML INJ IV ×4 (10:08→21:41)
--- NOTE | 2019-09-30 11:51 | PM.PN.1 ---
Subjective Subjective Date Patient Seen: 09/30/19 Interval history: Patient is a 74-year-old male who is status post hip surgery who had a very prolonged complicated postoperative course. After long discussion with the patient's family they have elected to make him comfort care. The patient is currently on fentanyl 25 mics every 3 days. He at times is restless and is given getting intermittent morphine and Ativan as well. Plans are underway for him to transition to [facility] on Tuesday. Patient has had an informational hospice bili visit and the family is very interested and comfort measures only at this time. His antibiotics have been discontinued. Will discontinue his anticonvulsants. Will continue with Ativan morphine and fentanyl. Exam Vital Signs (past 8 hours): - 09/30/19 10:00 Temperature 99.0 F Respiratory Rate 30 H Blood Pressure 151/90 H Pulse Oximetry 76 L Oxygen Delivery Method Room Air Oxygen Flow Rate 0 Narrative Exam Narrative: Ill-appearing male lying in bed at times uncomfortable, with bitemporal wasting Lungs: Decreased breath sounds bilaterally Cardiac exam: Regular rate and rhythm normal S1-S2, tachycardic Abdomen: Soft nontender nondistended Extremities: No edema Objective Labs Result Diagrams: 09/28/19 04:50 09/28/19 04:50 Assessment & Plan Assessment & Plan narrative: Assessment & Plan narrative: Intraparenchymal hemorrhage, left temporal lobe, acute, stable- - no intervention at this time patient on comfort measures discontinue Keppra at family request, Can use ativan for seizures if needed 2. Toxic metabolic encephalopathy, acute - likely multifactorial patient remains unresponsive CONTINUE COMFORT MEASURES 3. Right femoral neck fracture (displaced), acute, present on admission, active - status post right hemiarthroplasty with Dr. Chin on 09/24/2019. - GIVEN THAT THE PATIENT IS COMFORT MEASURES, will defer aspirin or anticoagulation at this time 4. Right nondisplaced distal clavicle fracture comfort measures 5. Heart failure with reduced ejection fraction, unknown acuity - TTE: Left ventricular systolic function is moderate to severely reduced (25). The anterior wall is not well visualized and a focal wall motion abnormality is not completely excluded. Otherwise there is overall moderate global hypokinesis.The right ventricle is grossly normal size. The right ventricular systolic function is normal. The right ventricular systolic pressure is estimated to be at least 59 mmHg based on an estimated right atrial pressure of 3 mm Hg. -Patient was diuresed with 40 mg of IV lasix daily x3, this seemingly had no effect on his pulmonary function. - no further intervention at this time as we are focusing comfort 6. Acute hypoxemic respiratory failure secondary to Right basilar pneumonia, acute - 7. Dehydration, acute, present on admission, active, comfort measures, no IVF at this time 8. Elevated Lactate, acute, present on admission, resolved - Received IVF in ED, could be potentially elevated in the setting of a seizure, however this will likely be unable to be determined exactly. - Repeat lactate 1.3 7. Seizures, chronic condition, present on admission, potentially active - 8. Tobacco dependence, chronic condition, present on admission, active - current 1 ppd smoker, nicotine patch Keppra d/c , ativan prn 9. 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 H/O alcohol abuse, present on admission, stable - continue comfort measures 12. Type 2 myocardial infarction, resolved - 13. CVA, subacute FEN/GI: Currently NPO, NG tube is not desired per family. Code status discussed with daughter. According to the daughter patient wishes now to be DNR/DNI. He does not have a formal health directive. Daughter Sarina Acosta is the surrogate decision maker. She did state that the patient would not want a permanent feeding tube, and would not want to be in a chcf for the rest of his life. Given the liklihood at this time of this being his best outcome (with a small chance of that at this time) the family decided to focus on comfort as the primary goal. Discharge to [facility] Tuesday when bed available. Quality VTE Deep Vein Thrombosis/Pulmonary Embolism Present on Admission: No
--- NOTE | 2019-09-30 11:55 | PM.PN.1 ---
Exam Vital Signs (past 8 hours): - 09/30/19 10:00 Temperature 99.0 F Respiratory Rate 30 H Blood Pressure 151/90 H Pulse Oximetry 76 L Oxygen Delivery Method Room Air Oxygen Flow Rate 0 Objective Labs Result Diagrams: 09/28/19 04:50 09/28/19 04:50 Assessment & Plan Assessment & Plan narrative: S/p Hemiarthroplasty for femoral neck fx. Comfort care only from primary team's perspective due to deterioating medical condition. Dressing clean and intact. D/c to SNF with hospice when available. No active orthopedic issue at this time. Ortho team will sign off at this time. Please call with questions. Quality VTE Deep Vein Thrombosis/Pulmonary Embolism Present on Admission: No
--- NOTE | 2019-09-30 13:49 | CM.DPC ---
DCP Comfort Care planning: Per MD and RN during bedside rounding today (no family currently present), pt currently off fluids and oxygen and aggressive pain management with ongoing plan of discharge to [facility] on Comfort Care tomorrow via BLS. Hospice to follow closely with [facility] staff to determine if they are needed if pt survives his 5 Medicare days at SNF on Comfort. BLS form completed today and MD signed in anticipation of d/c tomorrow. SW requested MD update a new POLST form with pt's family and Dtr/DPOA that will be needed for BLS transport staff at discharge. MD plans to complete POLST today. Plan: SW to follow closely for plan of d/[facility] tomorrow (tuesday) on Comfort Care and Hospice to follow if needed at SNF. FIDENCIO Johnson
[2019-09-30 15:04] VITALS: PULSE 101; RESP 17; O2SAT 80
--- NOTE | 2019-09-30 22:36 | PC.NURSE ---
Assumed care of pt at 1500. Pt resting in bed. Comfort measures maintained. FLACC scale used for pain assessment. Supportive family arrived at bedside at approx 1800. Oral care provided. Repositioning to keep pt comfortable. O2 sats 80% RA. Non-labored breathing. Kaur draining small amt of dark chaim urine.
[2019-10-01 00:06] VITALS: BP 121/65; PULSE 107; RESP 20; TEMP 37.1; O2SAT 79
--- NOTE | 2019-10-01 06:57 | PC.NURSE ---
Pain level down to 1/10 after medicated with 2 mg. of Morphine IVP admin. slowly over 2 mins. Rechecked B/P 101/64, & HR. 66. Also given some Maalox per hospitalist order. Will cont. POC & monitor.
[2019-10-01] MEDS: SODIUM CHLORIDE 0.9% FLUSH 10 ML IV ×2 (08:27→11:07)
[2019-10-01] MEDS: MORPHINE 4 MG/ML INJ IV ×4 (08:27→13:15)
--- NOTE | 2019-10-01 08:35 | PC.NURSE ---
Addendum entered by Lynne Ibrahim R.N. 10/01/19 14:22: Patient taken to [facility] by ambulance staff, patient had all belongings. Patients daughter Sarina took patients clothing and reports she took patients wallet days before. Report called to [facility] staff. Original Note: Patient unresponsive to voice, eyes partially opened, raising arms up and grabbing at sheets, facial grimace. RR26, HR 105, given 4mg IVP Morphine.
[2019-10-01 08:38] VITALS: PULSE 105; RESP 26; O2SAT 77
--- NOTE | 2019-10-01 08:53 | CM.DPC ---
Addendum entered by Cele Melendez 10/01/19 11:36: Received return phone call from Mehnaz at [facility], she reports that they can accept patient today. Orders and copy of scripts faxed to [facility]. MEDICAL LAB SPECIALIST asked JUSTICE/Gita to arranged non-urgent BLS transport. Met with daughter/Sarina at bedside. She confirms that they would like patient to go to [facility]. She is aware and agreeable for patient to remain on comfort care. Daughter reports that this is what patient would want. P: [facility] Orders, and PAS[facility] faxed to receiving facility. Transport scheduled for 1:30pm via non-urgent ambulance. FIDENCIO Salcedo Original Note: DCP/continued: Reviewed chart. Patient continues on comfort care. Current d/c plan per MEDICAL LAB SPECIALIST handoff is for patient to go to [facility] today via BLS to continue comfort measures only. Left VM this AM with [facility] requesting best time for departure today. No family at bedside. RN reports patient with very minimal urine output. Will discuss with provider in AM rounds. P: Anticipate transfer to [facility] if provider/family and facility remain in agreement. FIDENCIO Salcedo
[2019-10-01] MEDS: LORazepam 2 MG/ML INJ IV ×3 (09:48→13:15)
[2019-10-01] MEDS: fentaNYL 50 MCG/PATCH TOP (09:54)
--- NOTE | 2019-10-01 14:42 | CM.DPC ---
DCP Cont: Faxed updated signed med list to [facility] at fax # [phone]. Fax confirmation scanned in. Gita Fitzpatrick, [facility] HospitalPickler Helper
--- NOTE | 2019-10-03 17:24 | PM.DS.1 ---
History of Present Illness History of Present Illness Date Patient Seen: 10/01/19 Chief complaint: GLF Narrative: The patient is a 74-year-old male with PMH of alcohol abuse, 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 09/23/2019 patient was found down on the [place] who activated EMS. It is not clear how long patient has been down. It is not clear if he has suffered an injury to the head or had loss of consciousness. ED record notes patient to have low blood sugar on initial EMS contact, which was treated accordingly. Patient himself has underlying dementia and has no recollection of the events. He is on ASA 81 mg daily. Patient is known to have underlying history of seizures. According to patient's daughter he has had seizures most of his life. His last seizure is said to have taken place in May of 2019 (reported by daughter). Patient is on lamotrigine 150 mg BID. Despite underlying dementia patient does live by himself. His daughter communicated that she is in the process of obtaining home health for the patient as he has declined in his ability to care for self and perform ADLs. According to the daughter, patient lacks awareness of his surroundings. He is noted to orient himself by using a newspaper. Patient denies headache, change in vision, chest pain, palpitations, dizziness,, lightheadedness, abdominal pain, and GI distress. Patient is not known to have suffered a recent illness or hospitalization. In the ED he was found to have right femoral neck fracture. There have not been any overt electrolyte abnormalities. Renal function is stable. Lactate mildly elevated at 2.3 (resolved with hydration). Alcohol level and urine drug screen was negative. No acute signs of infection. Patient is complaining of right shoulder pain w/new decreased range of motion. XR of right shoulder is pending. Discharge Providers Provider Date of admission: 09/24/19 01:10 Discharge Date: 10/01/19 Consults: 09/24/19 02:04 Consult to Physical Therapy Evaluate & Treat Comment: hip fx; right clavicular fx? - eval 4 arm sling Physician Instructions: Evaluate and Treat 09/24/19 02:07 Consult to Orthopedic Surgery Routine Comment: Consulting Provider: Minal Gallego Reason for consultation: right femoral neck fracture; right arm pain Has provider been notified: No 09/24/19 15:04 Consult to Respiratory Therapy Evaluate & Treat Comment: Physician Instructions: Evaluate and treat 09/24/19 20:03 Consult to Discharge Planning Routine Comment: snf Consult to Physical Therapy Evaluate & Treat Comment: also nonop R clavicle fx--rec platform walker Physician Instructions: post op SERGEY protocol Consult to Respiratory Therapy Evaluate & Treat Comment: Physician Instructions: Evaluate and treat 09/26/19 16:09 Consult to Dietitian, Adult Urgent Comment: Reason For Exam: tube feeding recommendations Discharge provider: Divine Kang MD Summary Hospital Course Discharge Diagnosis: 1. Intraparenchymal left temporal lobe hemorrhage 2. Toxic metabolic encephalopathy 3. Seizure disorder 4. Status post right hemiarthroplasty 5. Congestive heart failure, with reduced ejection fraction, acute systolic heart failure 6. Type 2 myocardial infarction 7. Acute hypoxic respiratory failure 8. Right basilar pneumonia 9. COPD 10. Dehydration 11. Dementia secondary to alcohol use 12. Tobacco dependent 13. Right clavicular fracture non operative Hospital Course: Patient was admitted to the hospital after being followed found down. He underwent right hemiarthroplasty. Patient had a non operative right clavicular flexure as well. Following his surgical procedure the patient had difficulty waking up. Patient was given 2 mg of IV Ativan. He had some waxing waning of his consciousness. Patient ultimately had a head CT which showed a right small intraparenchymal hemorrhage. An MRI confirmed an acute left temporal lobe infarction. Patient continued to have waxing and waning of his consciousness. He developed tachycardia, atrial flutter, and some associated chest pain it he had an elevated troponin associated with this. The patient was desaturating and CT angio was obtained. This showed no evidence of PE. However there were bilateral pleural effusions noted. Echocardiogram confirmed reduced ejection fraction. Patient also found to have a right basilar pneumonia. He was treated for his pneumonia. Because of his waxing waning consciousness neurology consultation was obtained and it was felt that the patient had toxic metabolic encephalopathy/delirium. As the patient continued to do poorly a long discussion with the family ensued regarding ongoing care. The family did not want a feeding tube for the patient. They requested to move ports comfort measures. Patient was kept on antibiotics per as he had no significant improvement in his symptomatology he was given fentanyl and Ativan for symptom control. Patient at times was irritated and somewhat anxious. His pain and anxiety were controlled. Arrangements were made to transfer him to [facility] for comfort measures. Exam Vital Signs (past 8 hours): Oxygen Delivery Method Room Air Oxygen Flow Rate 0 Narrative Exam Narrative: Cachectic ill-appearing male lying in bed Lungs: Decreased breath sounds Cardiac exam: Regular rate and rhythm normal S1-S2 Abdomen: Scaphoid soft nontender Extremities: No edema Right hip with dressing in place Objective Labs Result Diagrams: 09/28/19 04:50 09/28/19 04:50 Discharge Plan Discharge Plan Patient Disposition: SNF Transfer to: [facility], [facility] Discharge orders & Medications Prescriptions: New fentanyl 50 mcg/hr Patch 72 Hour 50 mcg topical Q72H Qty: 14 RF: 0 lidocaine 5 % Adhesive Patch,Medicated 2 ea topical DAILY PRN (Reason: Pain, Mild (1-3)) 14 Days RF: 0 scopolamine base [Transderm-Scop] 1 mg over 3 days Patch 3 Day 1 patch topical Q72H PRN (Reason: Secretions) 7 Days RF: 0 lorazepam [Ativan] 2 mg tablet 2 mg PO TID PRN (Reason: anxiety) Qty: 20 RF: 0 morphine 15 mg tablet 15 mg PO Q8H PRN (Reason: pain) Qty: 60 RF: 0 morphine 20 mg/5 mL (4 mg/mL) solution 20 mg PO Q4H PRN (Reason: dyspnea) 7 Days Qty: 100 RF: 0 lorazepam 2 mg/mL concentrate 2 mg BUCCAL BEDTIME PRN (Reason: anxiety) 7 Days Qty: 30 RF: 0 Discontinued lamotrigine 150 mg Tablet 150 mg PO BID RF: 0 thiamine HCl (vitamin B1) 100 mg Tablet 100 mg PO DAILY RF: 0 aspirin 81 mg Tablet,Delayed Release (Dr/Ec) 81 mg PO DAILY RF: 0 folic acid 1 mg Tablet 1 mg PO DAILY RF: 0 Diet/Activity/Treatments Diet: Nothing by Mouth [facility] Reason for rehabilitation: Other Discharges patient from system. Discharge Date/Time: 10/01/19 13:30 Quality VTE Deep Vein Thrombosis/Pulmonary Embolism Present on Admission: No
--- NOTE | 2019-10-04 10:41 | CM.DPC ---
DCP Cont: Faxed discharge summary to [facility] at fax # [phone]. Fax confirmation scanned in. Giat Fitzpatrick, [facility] Bakery Clerk
== END 2019-10-01 13:30 | DRG 469 ==
LOC: ED 09-24 01:01 → AC 09-24 05:11 → ICU 09-27 08:30 → AC 09-28 19:37
PROVIDERS: Internal Medicine; Orthopaedic Surgery Foot and Ankle Surgery; Admitting Provider Nurse Practitioner Gerontology; Emergency Provider Emergency Medicine; Visit Provider Nurse Practitioner Gerontology
PROC: 0SRR0JZ Replacement of Right Hip Joint, Femoral Surface with Synthetic Substitute, Open Approach (ICD-10-PCS; CPT 27125; principal; 2019-09-24 16:45)
DX: S72.001A Fracture of unspecified part of neck of right femur, initial encounter for closed fracture (principal); I61.8 Other nontraumatic intracerebral hemorrhage; I63.9 Cerebral infarction, unspecified; G93.41 Metabolic encephalopathy; J96.01 Acute respiratory failure with hypoxia; I21.A1 Myocardial infarction type 2; R40.2344 Coma scale, best motor response, flexion withdrawal, 24 hours or more after hospital admission; R40.2224 Coma scale, best verbal response, incomprehensible words, 24 hours or more after hospital admission; J18.9 Pneumonia, unspecified organism; S42.02 Fracture of shaft of clavicle; I48.92 Unspecified atrial flutter; I50.20 Unspecified systolic (congestive) heart failure; R47.01 Aphasia; J43.2 Centrilobular emphysema; F10.97 Alcohol use, unspecified with alcohol-induced persisting dementia; G40.909 Epilepsy, unspecified, not intractable, without status epilepticus; E86.0 Dehydration; R40.2134 Coma scale, eyes open, to sound, 24 hours or more after hospital admission; G62.9 Polyneuropathy, unspecified; Z66 Do not resuscitate; F17.210 Nicotine dependence, cigarettes, uncomplicated; W18.30XA Fall on same level, unspecified, initial encounter; Z23 Encounter for immunization
CPT/HCPCS: 36415; 36600; 70450; 70548; 70553; 71045; 71260; 71275; 72125; 72170; 73030; 73502; 74177; 80048; 80053; 80076; 80305; 80320; 81003; 81015; 82550; 82553; 82805; 82962; 83605; 83735; 83880; 84100; 84145; 84484; 85025; 85610; 85730; 87040; 87797; 90471; 93005; 93010; 93306; 94760; 94762; 96361; 96375; 99284; 99285; C1776; 90715; A9579; C9290; J0295; J0690; J1170; J1650; J1885; J1940; J1953; J2060; J2270; J2704; J3010; J3475; Q9967